=== PATIENT | female | born 1970 | race Caucasian/White ===

== ENCOUNTER 2022-04-26 11:53 | Emergency (ER) | payer OTHER, SELFPAY ==
[2022-04-26 11:59] VITALS: BP 185/106; PULSE 80; RESP 16; TEMP 36.7; O2SAT 99
--- NOTE | 2022-04-26 12:10 | ED.URI ---
HPI - URI/Sore Throat General Chief Complaint: Upper Respiratory Infection Stated Complaint: uri Time Seen by Provider: 04/26/22 12:18 Source: patient and RN notes reviewed Mode of arrival: ambulatory Limitations: no limitations History of Present Illness HPI Narrative: 52-year-old female presents with concern for 2 week history of sinus pressure on her cheeks, ear pressure, pressure behind eyes. Reports she has been taking Claritin-D Mucinex DM without relief. She reports that she works at high [place] areas that makes her symptoms worse. MD elicited complaint: nasal congestion and sinus pain Related Data Allergies Allergy/AdvReac Type Severity Reaction Status Date / Time No Known Allergies Allergy Verified 04/26/22 11:59 Review of Systems Review of Systems: CONSTITUTIONAL: Denies malaise, chills, sweats, or fever. EYES: Denies visual changes, redness, or discharge. ENT: Denies rhinorrhea reports sinus pressure, congestion, sinus pain, otalgia CARDIOVASCULAR: Denies chest pain, palpitations, or edema. RESPIRATORY: Denies cough. Denies dyspnea. GASTROINTESTINAL: Denies abdominal pain, nausea, vomiting, diarrhea SKIN: Denies rash or itching. MUSCULOSKELETAL: Denies myalgia. NEUROLOGIC: Denies headache. All systems reviewed & are unremarkable except as noted in HPI and below PMFSH Comments At time of signature, agree with nursing past medical, surgical, social and family history. There is no relevant family history pertinent to the presenting complaint Exam Narrative: GENERAL: Well-appearing, well-nourished, and in no acute distress. HEAD: Normocephalic EYES: PERRLA, conjunctivae clear ENT: Nares clear, turbinates edematous and erythematous, purulent discharge. Mucous membranes moist. TM pearly villalba with dull light reflex bilaterally; no tragal tenderness. Oropharynx not erythematous without lesions. Tonsils not enlarged and without exudate, no drooling, no hoarseness, no trismus, uvula midline. NECK: Supple. No lymphadenopathy CHEST: Clear to auscultation, breath sounds equal. No wheezing, rhonchi, rales, or stridor. No respiratory distress, speaks in full sentences. HEART: Regular rate and rhythm. No murmur heard. SKIN: Warm, dry, no rash. NEURO: Alert and oriented x3. PSYCH: Normal mood and affect Course Course Emergency Course: Patient is aware of diagnosis, understands and agrees to treatment plan. Anticipatory guidance given. Patient agrees to follow-up as directed and is aware of reasons to seek care at the emergency department. Portions of this record may have been created with voice recognition software Level of Care: Express Care Visit Vital Signs Vital signs: Reviewed. MDM - URI/Sore Throat MDM Narrative Medical decision making narrative: Differential diagnosis considered: Le[place] virus, strep pharyngitis, allergic rhinitis, upper respiratory tract infection, sinusitis, rhinosinusitis, nasopharyngitis. viral pharyngitis, otitis media, otitis externa, pneumonia, bronchitis, viral cough syndrome, viral syndrome, and influenza. Exam findings show no acute concerns or changes; patient is non-toxic appearing and is in no distress. Patient is appropriate for outpatient treatment and follow-up. Lab Data Attestation: I reviewed the patient's lab results. Critical Care Time Critical Care Time Critical Care Time: No Discharge Plan Discharge Clinical Impression: Acute bacterial sinusitis Patient Disposition: Home, Self-Care Condition: Stable Instructions: Antibiotic Form, Sinusitis (ED) Additional Instructions: Take medications as prescribed Nonprescription pain medications, such as acetaminophen (eg, Tylenol) or ibuprofen (eg, Motrin, Advil), are recommended for pain. Flushing the nose and sinuses with a saline solution several times per day has been proven to decrease pain associated with congestion and shorten the duration of symptoms. Nasal steroids (such as Flonase, 2 sprays in each no
== END 2022-04-26 12:35 | disposition home or self-care (01) ==
PROVIDERS: Emergency Provider Nurse Practitioner
DX: J01.90 Acute sinusitis, unspecified (principal)
CPT/HCPCS: 99213; G0463

== ENCOUNTER 2022-07-20 15:14 | Emergency (ER) | payer OTHER, SELFPAY ==
--- NOTE | 2022-07-20 15:21 | ED.URI ---
HPI - URI/Sore Throat General Chief Complaint: Upper Respiratory Infection Stated Complaint: ABD PAIN & SINUS PRESSURE/SORE THROAT/EARACHE Time Seen by Provider: 07/20/22 15:21 Source: patient and RN notes reviewed History of Present Illness HPI Narrative: Patient is a 52-year-old female who presents to urgent care with complaints of right rib pain, sinus pressure, cough, sore throat, bilateral earache. Patient states the upper respiratory symptoms started 2 weeks ago. 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 Patient states that it improves with ice and heat. Patient also has been taking Mucinex D, Claritin D, Jessica-D and several medications with Sudafed. Patient has never had a history of high blood pressure. Denies any headache, blurry vision or fatigue. Denies any fevers. Denies any ill exposures. Denies shortness of breath. No other acute complaints. No acute distress noted. Patient aware of the plan of care. Some parts of this dictation were generated by voice recognition software and may contain typographical and/or grammatical inaccuracies. Related Data Allergies Allergy/AdvReac Type Severity Reaction Status Date / Time No Known Allergies Allergy Verified 07/20/22 15:37 Review of Systems Review of Systems: CONSTITUTIONAL: Denies fever, chills, or sweats. EYES: Denies visual changes, redness, or discharge. ENT: Reports of congestion, sinus pressure, sore throat, bilateral otalgia CARDIOVASCULAR: Denies chest pain, palpitations, or edema. RESPIRATORY: Denies cough or dyspnea. Reports of right rib discomfort GASTROINTESTINAL: Denies abdominal pain, nausea, vomiting, or diarrhea. GENITOURINARY: Denies dysuria or hematuria. SKIN: Denies rash or itching. MUSCULOSKELETAL: Denies back pain, joint pain, or myalgia. NEUROLOGIC: Denies headache, numbness, or weakness. All other systems reviewed are negative, except as documented in HPI. PMFSH Comments At the time of my signature, I reviewed and agree with the nursing past medical, surgical, social, and family history. There is no relevant family history pertinent to the patient complaint. Exam Narrative: GENERAL: This is a well-nourished, well-developed patient, in no apparent distress. HEAD: normocephalic, atraumatic. Frontal sinus tenderness on palpation EYES: PERRL. Sclera clear/white. Vision is grossly intact. EARS: External ears normal, auditory canals clear and without drainage, TMs normal without perforation. Hearing grossly intact. NOSE: External nose normal with no obvious nasal discharge, nares without redness, no rhinorrhea. THROAT: Mucous membranes moist, posterior pharynx clear. Moderate postnasal drainage NECK: Neck supple, non-tender without lymphadenopathy CARDIOVASCULAR: Regular rate and rhythm without murmurs, gallops, or rubs. RESPIRATORY: Clear to auscultation. Breath sounds equal bilaterally. No wheezes, rales, or rhonchi. Mild right rib discomfort on deep breathing with mild lateral right tenderness to approximately rib 7/8 SKIN: warm, intact with no suspicious lesions or rash, good texture and turgor. NEURO: awake, alert, and oriented to person, place and time. There were no obvious focal neurologic abnormalities. EXTREMITIES: No clubbing, cyanosis, or edema. Course Course Level of Care: Express Care Visit Vital Signs Vital signs: Vital Signs Temperature 97.7 F 07/20/22 15:25 Pulse Rate 71 07/20/22 15:25 Respiratory Rate 16 07/20/22 15:25 Blood Pressure 209/127 H 07/20/22 15:25 Pulse Oximetry 100 07/20/22 15:25 Oxygen Delivery Room Air 07/20/22 15:25 Temperature 97.7 F 07/20/22 15:25 Pulse Rate 71 07/20/22 15:25 Respiratory Rate 16 07/20/22 15:25 Blood Pressure 209/127 H 07/20/22 15:25 Pulse Oximetry 100 07/20/22 15:25 Oxygen Delivery Room Air
[2022-07-20 15:25] VITALS: BP 209/127; PULSE 71; RESP 16; TEMP 36.5; O2SAT 100
== END 2022-07-20 16:11 | disposition home or self-care (01) ==
PROVIDERS: Emergency Provider Nurse Practitioner Family
DX: J32.9 Chronic sinusitis, unspecified (principal); Z98.84 Bariatric surgery status
CPT/HCPCS: 99213; G0463

== ENCOUNTER → 2022-09-15 11:31 | Outpatient (CLI) | payer OTHER, SELFPAY ==
--- NOTE | ~2022-09-15 | XR_ITS ---
EXAMINATION: XR chest 2V 09/15/2022 11:45 INDICATION: Hypertension. PROCEDURE: 2 view chest COMPARISON: No prior studies FINDINGS: The lungs are clear. The cardiomediastinal silhouette is within normal limits. There are no pleural effusions. There is no pneumothorax suspected. IMPRESSION: 1: NO ACUTE CARDIOPULMONARY DISEASE. Reviewed, dictated and finalized at location B.
== END ==
PROVIDERS: PCP Nurse Practitioner Family; Visit Provider Nurse Practitioner Family
DX: I10 Essential (primary) hypertension (principal)
CPT/HCPCS: 71046

== ENCOUNTER 2022-09-15 11:55 | Outpatient (CLI) | payer OTHER, SELFPAY ==
--- NOTE | 2022-09-15 12:04 | ECG_ITS ---
Measurements Intervals [place] Rate: 81 P: 14 SD: 122 QRS: -9 QRSD: 98 T: 23 QT: 377 QTc: 439 Interpretive Statements SINUS RHYTHM LOW-VOLTAGE QRS IN PRECORDIAL LEADS BORDERLINE ECG NO PREVIOUS ECG AVAILABLE FOR COMPARISON Electronically Signed On 09-15-2022 16:52:16 CDT by Danny Ortiz M.D.
== END 2022-09-15 11:56 | disposition home or self-care (01) ==
LOC: ANHCARD 11:58
PROVIDERS: PCP Nurse Practitioner Family; Visit Provider Nurse Practitioner Family
DX: I10 Essential (primary) hypertension (principal)
CPT/HCPCS: 93005

== ENCOUNTER 2022-10-07 23:34 | Inpatient (IN) | payer OTHER, SELFPAY ==
--- NOTE | ~2022-10-07 | US_ITS ---
EXAMINATION: US abdomen limited DATE: 10/08/2022 09:17 INDICATION: Abnormal liver function tests. TECHNIQUE: Multiple grayscale and Doppler ultrasound images of the abdomen were obtained. COMPARISON: CT abdomen and pelvis 10/08/2022 FINDINGS: The head of the pancreas is hypoechoic, consistent with acute pancreatitis. There is diffus e hepatic steatosis. There is normal flow in main portal vein. The gallbladder is absent. The common duct is dilated to 14 mm. IMPRESSION: 1. Acute interstitial pancreatitis. 2. Common duct dilatation to 14 mm. 3. Diffuse hepatic steatosis. Reviewed, dictated and finalized at location A.
--- NOTE | ~2022-10-07 | CT_ITS ---
EXAMINATION: CT abdomen pelvis w con DATE: 10/08/2022 01:50 INDICATION: Upper abdominal pain. TECHNIQUE: Computed tomography (CT) of the abdomen and pelvis was performed with 100 mL Omnipaque 350 intravenous contrast. Automated exposure control and iterative reconstruction technique were employe d. The dose-length product was 461.00 mGy-cm. COMPARISON: None. FINDINGS: The visualized portions of the lung bases are clear without pneumonia or pleural effusion. The heart size is normal. No pericardial effusion. The liver is normal. There are changes of cholecys tectomy. The common duct is mildly dilated to 12 mm. The spleen is normal. There is fat stranding in the abdomen centered at the head of the pancreas, consistent with acute interstitial pancreatitis. Th e adrenal glands and kidneys are normal. There is an intrauterine device in expected position. There is liquid stool in the colon suggesting diarrhea. There are no dilated loops of bowel. The appendix i s normal. There are no pathologically enlarged lymph nodes. There is no free intraperitoneal fluid. T here is moderate thoracic spondylosis and mild lumbar spondylosis. There is mild chronic anterior wed ging of T11 and T12 vertebral bodies. IMPRESSION: 1. Acute interstitial pancreatitis. 2. Mildly dilated common duct. Reviewed, dictated and finalized at location A.
[2022-10-07 23:39] VITALS: BP 173/95; PULSE 71; RESP 18; TEMP 36.4; O2SAT 99
[2022-10-08] VITALS (13 sets, daily range): BP systolic 133–166; BP diastolic 66–118; PULSE 56–76; RESP 16–18; TEMP 36.4–36.7; O2SAT 94–98; BMI 29.3
[2022-10-08] MEDS: SODIUM CHLORIDE 0.9% IV 1,000 ML 999 ML IV CONT ×2 (00:51→02:21)
[2022-10-08] MEDS: MORPHINE SULFATE (*CRX) 4 MG/ML INJ IV PUSH ×4 (00:52→06:28)
[2022-10-08] MEDS: ONDANSETRON INJ 4 MG/2 ML VIAL IV PUSH ×4 (00:52→23:41)
[2022-10-08 01:02] LABS: Basophils Percent Auto 0.4 % (0.2-1.2); Eosinophils Percent Auto 0.6 % (0-4.4); Hematocrit 35.5 % (37.0-47.0); Hemoglobin 12.5 g/dL (12.0-15.0); Immature Granulocyte Absolute 0.01 K/mm3 (0.00-0.031); Immature Granulocyte Percent A 0.2 % (0-0.5); Lymphocytes Absolute Auto 1.19 K/mm3 (0.9-3.2); Lymphocytes Percent Auto 22.5 % (18.3-44.2); Mean Corpuscular HGB Conc 35.2 g/dl (32-36); Mean Corpuscular Hemoglobin 33.2 pg (26-34); Mean Corpuscular Volume 94.4 fl (80-100); Mean Platelet Volume 9.3 fl (7.4-10.4); Monocytes Absolute Auto 0.5 K/mm3 (0.1-0.6); Monocytes Percent Auto 9.1 % (2.6-8.5); Neutrophils Absolute Auto 3.6 K/mm3 (1.3-6.7); Neutrophils Percent Auto 67.2 % (45.5-73.1); Platelet Count Result 155 k/mm3 (150-375); Red Blood Count 3.76 M/mm3 (4.2-5.4); Red Cell Distribution Width 11.9 % (11.5-14.5); White Blood Count 5.3 K/mm3 (4.5-10.0)
[2022-10-08 01:03] LABS: Appearance Urine Clear (Clear); Bilirubin Urine 1+ (Negative); Blood Urine Negative (Negative); Color Urine Yellow (Yellow); Glucose Urine UA Negative (Negative); Ketones Urine 2+ mg/dL (Negative); Leukocyte Esterase Ur Negative LEU/UL (Negative); Nitrate Urine Negative (Negative); Protein Urine 2+ mg/dL (Negative); Specific Grav Ur 1.025 (1.001-1.035); Urobilinogen Urine 0.2 mg/dL (<2.0)
[2022-10-08 01:04] LABS: Add Urine Microscopic? YES
[2022-10-08 01:05] LABS: Squamous Epithelial Cell Urine Occasional /hpf (Few); WBC Urine 0-3 /hpf
[2022-10-08 01:20] LABS: Lactic Acid Reflex 1.1 mmol/L (0.7-2.0)
[2022-10-08 01:26] LABS: Alanine Aminotransferase 80 U/L (6-35); Alkaline Phosphatase 129 U/L (38-126); Anion Gap 6 mmol/L (8-16); Aspartate Amino Transferase 154 U/L (14-36); Blood Urea Nitrogen 11 mg/dL (7-17); Calcium 8.6 mg/dL (8.4-10.2); Carbon Dioxide 30 mmol/L (22-30); Chloride 83 mmol/L (98-107); Estimated Glomerular Filt Rate > 60; Glucose 103 mg/dL (65-110); Potassium 3.7 mmol/L (3.4-5.0); Sodium 119 mmol/L (137-145)
[2022-10-08 01:38] LABS: Lipase 5516 U/L (23-300)
--- NOTE | 2022-10-08 02:16 | ED.GENADULT ---
HPI - General Adult General Chief complaint: Abdominal Pain Stated complaint: upper abd pain, nausea Time Seen by Provider: 10/08/22 00:21 History of Present Illness HPI narrative: Is a 52-year-old female who presents emergency department with chief complaint of abdominal pain. Patient reports that she started having pain in the epigastric and right upper quadrant region reports that it is extremely sharp unable to get comfortable in any position. The patient reports he has prior history of a cholecystectomy and also history of a gastric bypass that was done in [place]. Patient reports that she has had nausea with this denies fever. Related Data Allergies Allergy/AdvReac Type Severity Reaction Status Date / Time No Known Allergies Allergy Verified 07/20/22 15:37 Review of Systems Review of Systems: A 10 system review of systems was completed on the patient and is negative except for what is stated in the HPI. Nursing and ancillary documentation was reviewed. Exam Narrative: GENERAL: Well-appearing, well-nourished, and in no acute distress. HEAD: Normocephalic, atraumatic. EYES: PERRLA and EOMI. ENT: Nares clear, no rhinorrhea or epistaxis. Mucous membranes moist. NECK: Supple. CHEST: Clear to auscultation. No respiratory distress. HEART: Regular rate and rhythm. No murmur heard. Normal peripheral pulses. ABDOMEN: Soft, tender to palpation in the epigastric, nondistended, normal active bowel sounds. EXTREMITIES: Normal range of motion. No edema. SKIN: Warm, dry, no rash. NEURO: No focal deficits. Alert and oriented x3. PSYCH: Normal mood and affect. Course Vital Signs Vital signs: Vital Signs Temperature 36.4 C L 10/07/22 23:39 Pulse Rate 71 10/07/22 23:39 Respiratory Rate 18 10/07/22 23:39 Blood Pressure 173/95 H 10/07/22 23:39 Pulse Oximetry 99 10/07/22 23:39 Oxygen Delivery Room Air 10/07/22 23:39 Temperature 36.4 C L 10/07/22 23:39 Pulse Rate 74 10/08/22 03:05 Respiratory Rate 17 10/08/22 03:05 Blood Pressure 137/73 10/08/22 04:31 Pulse Oximetry 94 10/08/22 03:05 Oxygen Delivery Room Air 10/07/22 23:39 Medical Decision Making MDM Narrative Medical decision making narrative: Differential diagnosis includes pancreatitis, gastritis, colitis, bowel obstruction, electrolyte abnormality, ileus Laboratory studies were obtained which showed a sodium of 119. Patient's liver enzymes were slightly elevated with an ALT of 80 and AST of 154. Bilirubin was 1.0. Patient had a significantly elevated lipase of 5560 urinalysis showed no evidence of UTI. CT scan was also consistent with acute pancreatitis Patient has been hydrated in the emergency department pain control has been provided. The case was discussed with the hospitalist and patient will be admitted to the hospital service. Hospitalist requested both a general surgery and a GI consult for the morning Vital Signs Vital Signs: Vital Signs Temperature 36.4 C L 10/07/22 23:39 Pulse Rate 71 10/07/22 23:39 Respiratory Rate 18 10/07/22 23:39 Blood Pressure 173/95 H 10/07/22 23:39 Pulse Oximetry 99 10/07/22 23:39 Oxygen Delivery Room Air 10/07/22 23:39 Temperature 36.4 C L 10/07/22 23:39 Pulse Rate 74 10/08/22 03:05 Respiratory Rate 17 10/08/22 03:05 Blood Pressure 137/73 10/08/22 04:31 Pulse Oximetry 94 10/08/22 03:05 Oxygen Delivery Room Air 10/07/22 23:39 Lab Data 10/08/22 00:50 10/08/22 02:58 Labs: Lab Results 10/08/22 10/08/22 10/08/22 Range/Units 00:49 00:50 02:58 WBC 5.3 (4.5-10.0) K/mm3 RBC 3.76 L (4.2-5.4) M/mm3 Hgb 12.5 (12.0-15.0) g/dL Hct 35.5 L (37.0-47.0) % MCV 94.4 (80-100) fl MCH 33.2 (26-34) pg MCHC 35.2 (32-36) g/dl RDW 11.9 (11.5-14.5) % Plt Count 155 (150-375) k/mm3 MPV 9.3 (7.4-10.4) fl Immature Gran % (Auto) 0.2 (0-0.5) % Neut % (A
[2022-10-08 03:22] LABS: Anion Gap 4 mmol/L (8-16); Blood Urea Nitrogen 9 mg/dL (7-17); Carbon Dioxide 27 mmol/L (22-30); Chloride 92 mmol/L (98-107); Estimated Glomerular Filt Rate > 60; Glucose 102 mg/dL (65-110); Potassium 3.4 mmol/L (3.4-5.0); Sodium 123 mmol/L (137-145)
--- NOTE | 2022-10-08 04:53 | PM.IMHP ---
H&P: HPI History of Present Illness Date/Time: 10/08/22 04:53 Chief Complaint: Epigastric abdominal pain Narrative: This is a 52-year-old female with past medical history significant for gastric bypass surgery [facility] this was 17 years ago, obesity, patient presents today to the emergency room after she workup in the morning with epigastric abdominal pain she rated at 10/10 intensity, patient was able to have small meals during the day she rates the pain a 10/10 in intensity no alleviating factors or aggravating factors only relieved by pain medication patient denies any fevers, rigors, chills, nausea, vomiting, diarrhea has been in her usual state of health up until this point. Preliminary workup was significant for a lipase of 5500, AST/ALT/alk phos 154/84/129 respectively, sodium [address] of abdomen and pelvis is in progress finalized report pending. Patient is been admitted for further evaluation management and treatment. Review of Systems Review of Systems: Epigastric abdominal pain Constitutional: Constitutional: Denies chills, Denies fatigue, Denies fever(s), Denies lethargy, Denies malaise, Denies night sweats, Denies poor appetite and Denies weakness Eyes: Eyes: Denies change in vision ENT: Denies dysphagia and Denies odynophagia Cardiovascular: Cardiovascular: Denies chest pain, Denies leg edema, Denies radiating jaw, neck or arm pain and Denies palpitations Respiratory: Respiratory: Denies cough, Denies pain on inspiration and Denies dyspnea Gastrointestinal: Gastrointestinal: Reports abdominal pain (Epigastric), Denies dyspepsia, Denies heartburn, Denies diarrhea, Denies nausea and Denies vomiting Genitourinary: Genitourinary: Denies dysuria Musculoskeletal: Musculoskeletal: Denies back pain, Denies joint swelling and Denies muscle weakness Integumentary/Breasts: Skin/Breast: Denies rash Neurologic: Denies focal weakness and Denies Sensory deficit (Neuro) Psychiatric: Psychiatric: Reports no additional psychiatric complaints and Reports as per HPI Endocrine: Endocrine: Denies cold intolerance, Denies flushing, Denies heat intolerance, Denies polyphagia, Denies polydipsia and Denies palpitations Hematologic/Lymphatic: Hematologic/Lymphatic: Reports no additional hematologic/lymphatic complaints and Reports as per HPI Allergic/Immunologic: Allergic/Immunologic: Reports no additional allergic/immunologic complaints and Reports as per HPI Meds Home Medications and Allergies Home Medications Medication Instructions Recorded Confirmed Type hydrochlorothiazide 12.5 mg capsule 12.5 mg PO DAILY 10/08/22 10/08/22 History losartan 50 mg tablet 50 mg PO DAILY 10/08/22 10/08/22 History Allergies Allergy/AdvReac Type Severity Reaction Status Date / Time No Known Allergies Allergy Verified 07/20/22 15:37 Vital Signs Vital Signs - 24 hr 10/07/22 23:39 10/08/22 00:58 10/08/22 01:01 Temperature 97.5 F L Pulse Rate 71 Respiratory Rate 18 Blood Pressure 173/95 H 157/118 H 166/79 H Pulse Oximetry 99 Oxygen Delivery Room Air 10/08/22 01:31 10/08/22 01:47 10/08/22 02:01 Temperature Pulse Rate Respiratory Rate Blood Pressure 153/82 H 144/80 H 146/79 H Pulse Oximetry Oxygen Delivery 10/08/22 02:31 10/08/22 03:05 10/08/22 04:01 Temperature Pulse Rate 74 Respiratory Rate 17 Blood Pressure 155/66 H 133/83 137/75 Pulse Oximetry 94 Oxygen Delivery 10/08/22 04:31 Temperature Pulse Rate Respiratory Rate Blood Pressure 137/73 Pulse Oximetry Oxygen Delivery Exam Narrative: Patient is laying in a stretcher Const: General: cooperative, comfortable, no acute distress, well developed, alert, awake, average body habitus and other (Well-appearing, apprehensive) Nutritional Appearance: average body habitus Orientation/consciousness: patient oriented x3 HENMT: Head: normal to inspection, normocephalic and atraumatic Ears:
[2022-10-08] MEDS: PANTOPRAZOLE SODIUM IV 40 MG VIAL IV PUSH ×2 (04:55→08:22)
[2022-10-08] MEDS: SODIUM CHLORIDE 0.9% IV 1,000 ML 125 ML IV CONT (05:04)
[2022-10-08] MEDS: HYDROmorphone HCL INJ (*CRX) 1 MG/ML SYR 0.5 MG IV PUSH ×8 (08:16→23:41)
[2022-10-08] MEDS: LOSARTAN POTASSIUM 50 MG TABLET PO (08:21)
[2022-10-08] MEDS: ENOXAPARIN 40 MG/0.4 ML SYRINGE SUB-Q (08:21)
[2022-10-08 09:22] LABS: Sodium 129 mmol/L (137-145)
[2022-10-08 10:11] LABS: Creatinine Urine 25.9 mg/dL; Total Protein Urine Random 25 mg/dL; Ur Ttl Prot Creatinine Ratio 0.97 mg/mg (0-0.20); Urea Random Urine 196 MG/DL
[2022-10-08] MEDS: DEXTROSE 5% IN WATER 500 ML 250 ML IV CONT ×2 (11:29→15:39)
--- NOTE | 2022-10-08 11:38 | PM.IMPN ---
Progress Note: A&P Assessment and Plan (1) Acute pancreatitis: Qualifiers: Acute pancreatitis complication: no infection or necrosis Pancreatitis type: unspecified pancreatitis type Qualified Code(s): K85.90 - Acute pancreatitis without necrosis or infection, unspecified Code(s): K85.90 - Acute pancreatitis without necrosis or infection, unspecified Status: Acute Assessment and Plan: Admit to regular medical floor NPO IV fluids Supportive care GI consult General surgery consult (2) Abdominal pain: Code(s): R10.9 - Unspecified abdominal pain Status: Acute Assessment and Plan: Likely secondary to acute pancreatitis Supportive care (3) Hyponatremia: Code(s): E87.1 - Hypo-osmolality and hyponatremia Status: Acute Assessment and Plan: Likely secondary to diuretic use Hydrochlorothiazide on hold Receiving IV fluids Continue to monitor (4) Abnormal LFTs: Code(s): R79.89 - Other specified abnormal findings of blood chemistry Status: Acute Assessment and Plan: Her right upper quadrant ultrasound in a.m. Continue to monitor Subjective Date/time seen: 10/08/22 11:38 Interval history: Still having abdominal pain. Exam Narrative: Patient is laying in a stretcher Const: General: cooperative, comfortable, no acute distress, well developed, alert, awake, average body habitus and other (Well-appearing, apprehensive) Nutritional Appearance: average body habitus Orientation/consciousness: patient oriented x3 HENMT: Head: normal to inspection, normocephalic and atraumatic Ears: hearing grossly normal bilaterally Face/Nose/Sinus: normal facial exam Face and sinus: normal facial exam Eyes: General: appearance normal, both eyes and all related structures Pupils: Equal, round and reactive pupils present EOM: EOMs intact bilaterally Neck: Neck: full ROM, no lymphadenopathy and no JVD Thyroid: thyroid normal Lymphatic: no lymphadenopathy noted Resp: Effort & Inspection: normal respiratory effort and able to speak in complete sentences Auscultation: clear to auscultation bilaterally Cardio: Jugular venous distension: no JVD Rate: regular rate Rhythm: regular rhythm Heart sounds: S1 normal heart sound present and S2 normal heart sound present GI: Inspection: normal to inspection : General: Yes deferred Skin: Rashes: no rashes Wounds: no wounds Neuro: General: patient oriented x3 and CN's II-XI intact bilaterally Cranial nerves: Yes CN's II-XII intact bilaterally and Yes Equal, round and reactive pupils present Cognition (Neuro): normal cognition Speech: normal speech Gait exam (Neuro): Normal gait present Motor exam (neuro): 5/5 motor strength present throughout Sensory Exam: No Sensory deficit (Neuro) Extrem: General: normal to inspection, full ROM, no joint enlargement and no pedal edema Objective Data Vital Signs Vital Signs: Vital Signs - 24 hr 10/07/22 23:39 10/08/22 00:58 10/08/22 01:01 Temperature 97.5 F L Pulse Rate 71 Respiratory Rate 18 Blood Pressure 173/95 H 157/118 H 166/79 H Pulse Oximetry 99 Oxygen Delivery Room Air 10/08/22 01:31 10/08/22 01:47 10/08/22 02:01 Temperature Pulse Rate Respiratory Rate Blood Pressure 153/82 H 144/80 H 146/79 H Pulse Oximetry Oxygen Delivery 10/08/22 02:31 10/08/22 03:05 10/08/22 04:01 Temperature Pulse Rate 74 Respiratory Rate 17 Blood Pressure 155/66 H 133/83 137/75 Pulse Oximetry 94 Oxygen Delivery 10/08/22 04:31 10/08/22 05:02 10/08/22 06:07 Temperature 97.8 F Pulse Rate 76 65 Respiratory Rate 18 18 Blood Pressure 137/73 143/89 H 150/74 H Pulse Oximetry 94 97 Oxygen Delivery 10/08/22 08:05 Temperature Pulse Rate Respiratory Rate Blood Pressure Pulse Oximetry Oxygen Delivery Room Air Intake/Output Intake/Output: Intake & Output 10/05/22 10/06/22 10/07/22 10/08/22
[2022-10-08] MEDS: DESMOPRESSIN ACETATE 4 MCG/ML AMP 1 MCG SUB-Q (11:59)
--- NOTE | 2022-10-08 13:25 | PM.CNNEP ---
Assessment and Plan Assessment and plan (1) Hyponatremia: Code(s): E87.1 - Hypo-osmolality and hyponatremia Status: Acute Assessment and Plan: presumably due to volume depletion/dehydration given rapid correction with normal saline IVFs due to concerns of rapid/overcorrection in sodium (119 --> 129 in less than 24 hours): D5W IVFs initiated 1mcg DDAVP SQ x 1 goal of therapy is 6 - 8 meq/L in 24hrs hence trying to keep sodium level no higher than 127 meq/L until 0100 tomorrow check TSH, cortisol, SPEP, UPEP, and urine electrolytes follow up on serum and urine osmolality follow repeat sodium levels (2) Acute pancreatitis: Qualifiers: Acute pancreatitis complication: no infection or necrosis Pancreatitis type: unspecified pancreatitis type Qualified Code(s): K85.90 - Acute pancreatitis without necrosis or infection, unspecified Code(s): K85.90 - Acute pancreatitis without necrosis or infection, unspecified Status: Acute Assessment and Plan: as noted by serum lipase level and imaging GI and Surgery consulted NPO IVFs (while trying to keep sodium stable) pain control (3) Abdominal pain: Code(s): R10.9 - Unspecified abdominal pain Status: Acute Assessment and Plan: secondary to #2 continue supportive therapy (4) Abnormal LFTs: Code(s): R79.89 - Other specified abnormal findings of blood chemistry Status: Acute Assessment and Plan: related to pancreatitis (?) follow-up on RUQ ultrasound I will continue to follow the patient with you while she remains hospitalized and make further recommendations during her hospital course. Thank you for allowing me to participate in the care of this patient. History of Present Illness Reason for Consult Consult date: 10/08/22 Reason for consult: hyponatremia Chief Complaint Chief complaint: Acute Pancreatitis History of Present Illness Narrative: The patient is a 52-year-old female with a past medical history as outlined below who presented to [facility] Emergency room for further evaluation of abdominal pain. The patient reports abdominal pain localized to the epigastric area rated 10 at 10 in severity. She is not entirely sure when exactly the pain started but noted it to be significantly worse/prominent on the day of presentation to the ER. No reported alleviating or aggravating factors that she is aware of. He denied any symptoms of fever, chills, rigors, nausea, vomiting, diarrhea. In spite of the pain, she was able to have some small meals throughout the day until the severity of the pain came to the point where she came to the emergency room for further assessment. Workup and evaluation emergency room demonstrated the patient be hemodynamically stable and in mild distress secondary to abdominal pain. Routine blood test demonstrated normal renal function but with significant hyponatremia with a sodium level of 119. Furthermore, her liver function tests from mildly elevated and her lipase was significantly elevated at 5500. Subsequently, a CT scan of the abdomen pelvis was done which was consistent with acute pancreatitis. Given the constellation of symptoms that led to her presentation to the hospital as well as her laboratory and imaging findings, the patient was admitted to the hospital for further evaluation and therapy. Since her admission, she was started on aggressive IV fluid resuscitation and this caused her sodium level ago from 119-123 approximately 2 hours later to her most recent blood work this morning of 129. This of course is an over-correction of around 10 mEq per L in less than 24 hours. Renal consultation was requested due to her acute hyponatremia. From my discussion with the patient, she has never had any issues or problems with hyponatremia in the past and has never been told by any physician or medical professional that she has a chr
[2022-10-08 15:02] LABS: Sodium 128 mmol/L (137-145)
--- NOTE | 2022-10-08 15:34 | PM.CNGS ---
Assessment and Plan Assessment and plan (1) Acute pancreatitis: Qualifiers: Acute pancreatitis complication: no infection or necrosis Pancreatitis type: unspecified pancreatitis type Qualified Code(s): K85.90 - Acute pancreatitis without necrosis or infection, unspecified Code(s): K85.90 - Acute pancreatitis without necrosis or infection, unspecified Status: Acute Assessment and Plan: Most likely due to alcohol. No evidence of pseudocyst or necrosis. Unlikely to have bile duct stone as gallbladder removed nearly 20 years ago. Defer management to GI and Hospitalist service. No indication for surgery. Will sign off. History of Present Illness Consult details Consult date: 10/08/22 Reason for consult: abdominal pain Requesting physician: Elpidio Pierce MD Narrative: Patient is 52 yo woman whose about 2 weeks ago. She has been understandably upset and grieving. She has also been drinking a lot of vodka which is unusual for her. She has remote (17 yrs ago) hx of jocelin-en-Y gastric bypass in [place]. She had lap dayne a year or two before that. She developed severe epigastric abdominal pain on awakening yesterday. This persisted and she came to the ER yesterday evening. Evaluation showed an elevated serum lipase of 5516. CT scan was done and showed acute pancreatitis. CBD was dilated at 12 mm. She is seen now in consultation for acute epigastric abdominal pain. Review of Systems Review of Systems: All systems reviewed & are unremarkable except as noted in HPI and below (HPI and those items noted below) Constitutional: Constitutional: Denies chills and Denies fever(s) Cardiovascular: Cardiovascular: Denies chest pain, Denies diaphoresis, Denies dyspnea and Denies paroxysmal nocturnal dyspnea Respiratory: Respiratory: Denies chest congestion, Denies cough and Denies dyspnea Integumentary/Breasts: Skin/Breast: Denies lesions and Denies rash PMFSH Social History Social History Smoking status: Never smoker Alcohol intake: current Drinks per week: 12 Substance use: never Substance use type: does not use Lack of Transportation: No Lack of Food: Never True Current Housing: I Have Housing Concerned About Future Housing: No Difficulty Paying Gas/Electric Bills: No Difficulty Paying for Meds: No Currently Unemployed: No Education: High School Diploma/GED Difficulty w/ Childcare or Family Care: No Spiritual care concerns: No Meds Home Medications and Allergies Home Medications Medication Instructions Recorded Confirmed Type hydrochlorothiazide 12.5 mg capsule 12.5 mg PO DAILY 10/08/22 10/08/22 History losartan 50 mg tablet 50 mg PO DAILY 10/08/22 10/08/22 History Allergies Allergy/AdvReac Type Severity Reaction Status Date / Time No Known Allergies Allergy Verified 07/20/22 15:37 Vital Signs Vital Signs - 24 hr 10/07/22 23:39 10/08/22 00:58 10/08/22 01:01 Temperature 36.4 C L Pulse Rate 71 Respiratory Rate 18 Blood Pressure 173/95 H 157/118 H 166/79 H Pulse Oximetry 99 Oxygen Delivery Room Air 10/08/22 01:31 10/08/22 01:47 10/08/22 02:01 Temperature Pulse Rate Respiratory Rate Blood Pressure 153/82 H 144/80 H 146/79 H Pulse Oximetry Oxygen Delivery 10/08/22 02:31 10/08/22 03:05 10/08/22 04:01 Temperature Pulse Rate 74 Respiratory Rate 17 Blood Pressure 155/66 H 133/83 137/75 Pulse Oximetry 94 Oxygen Delivery 10/08/22 04:31 10/08/22 05:02 10/08/22 06:07 Temperature 36.6 C Pulse Rate 76 65 Respiratory Rate 18 18 Blood Pressure 137/73 143/89 H 150/74 H Pulse Oximetry 94 97 Oxygen Delivery 10/08/22 08:05 10/08/22 14:00 Temperature 36.4 C Pulse Rate 60 Respiratory Rate 18 Blood Pressure 145/99 H Pulse Oximetry 98 Oxygen Delivery Room Air Exam Const: General: comfortable, no acute distres
[2022-10-08 19:36] LABS: Sodium 125 mmol/L (137-145)
--- NOTE | 2022-10-08 19:57 | WPDGICN ---
Assessment and Plan Assessment and plan (1) Acute pancreatitis: Qualifiers: Acute pancreatitis complication: no infection or necrosis Pancreatitis type: unspecified pancreatitis type Qualified Code(s): K85.90 - Acute pancreatitis without necrosis or infection, unspecified Code(s): K85.90 - Acute pancreatitis without necrosis or infection, unspecified Status: Acute Assessment and Plan: from recent heavy drinking npo, iv fluids, pain control no surgical indication and reviewed CT scan (2) Alcohol abuse: Code(s): F10.10 - Alcohol abuse, uncomplicated Status: Acute Assessment and Plan: she understood that probably was trigger stop drinking (3) Abnormal LFTs: Code(s): R79.89 - Other specified abnormal findings of blood chemistry Status: Acute Assessment and Plan: will monitor (4) Hyponatremia: Code(s): E87.1 - Hypo-osmolality and hyponatremia Status: Acute Assessment and Plan: treated slow correction, by nephrology (5) Abdominal pain: Code(s): R10.9 - Unspecified abdominal pain Status: Acute GI Consult Note Consult date/time: 10/08/22 19:57 Reason for consult: pancreatitis HPI: Rima Hanson is a 52 year old female with history of HTN, about 17 yrs ago hx of jocelin-en-Y gastric bypass in [place] and also had lap dayne. She is social drinker but lost her and for last 2 weeks has been drinking heavily vodka which is unusual for her. She developed severe epigastric abdominal pain with radiation to her back and [place]. Evaluation showed an elevated serum lipase of 5516, AST/ALT/alk phos 154/84/129 respectively, sodium [address] scan was done and showed acute pancreatitis, still with pain. Never had pancreatitis. Review of Systems Constitutional: Constitutional: Denies chills Eyes: Eyes: Denies blurry vision ENT: Reports Normal hearing present Cardiovascular: Cardiovascular: Denies chest pain Respiratory: Respiratory: Denies cough Gastrointestinal: Gastrointestinal: Reports abdominal pain and Reports nausea Genitourinary: Genitourinary: Denies dysuria Musculoskeletal: Musculoskeletal: Denies arthralgias Integumentary/Breasts: Skin/Breast: Denies rash Neurologic: Denies Abnormal speech present Psychiatric: Psychiatric: Denies confusion [facility] Past Medical History Medical History Alcohol abuse Social History Social History Smoking status: Never smoker Alcohol intake: current Drinks per week: 12 Substance use: never Substance use type: does not use Lack of Transportation: No Lack of Food: Never True Current Housing: I Have Housing Concerned About Future Housing: No Difficulty Paying Gas/Electric Bills: No Difficulty Paying for Meds: No Currently Unemployed: No Education: High School Diploma/GED Difficulty w/ Childcare or Family Care: No Spiritual care concerns: No Meds Home Medications and Allergies Home Medications Medication Instructions Recorded Confirmed Type hydrochlorothiazide 12.5 mg capsule 12.5 mg PO DAILY 10/08/22 10/08/22 History losartan 50 mg tablet 50 mg PO DAILY 10/08/22 10/08/22 History Allergies Allergy/AdvReac Type Severity Reaction Status Date / Time No Known Allergies Allergy Verified 07/20/22 15:37 Vital Signs Vital Signs - 24 hr 10/07/22 23:39 10/08/22 00:58 10/08/22 01:01 Temperature 97.5 F L Pulse Rate 71 Respiratory Rate 18 Blood Pressure 173/95 H 157/118 H 166/79 H Pulse Oximetry 99 Oxygen Delivery Room Air 10/08/22 01:31 10/08/22 01:47 10/08/22 02:01 Temperature Pulse Rate Respiratory Rate Blood Pressure 153/82 H 144/80 H 146/79 H Pulse Oximetry Oxygen Delivery 10/08/22 02:31 10/08/22 03:05 10/08/22 04:01 Temperature Pulse Rate 74 Respiratory Rate 17 Blood Pressure 155/66 H 133/83 137/75
[2022-10-08 23:23] LABS: Sodium 125 mmol/L (137-145)
[2022-10-08] MEDS: DEXTROSE 5%/0.45% SOD CHL 1,000 ML 75 ML IV CONT (23:53)
[2022-10-09] MEDS: HYDROmorphone HCL INJ (*CRX) 1 MG/ML SYR 0.5 MG IV PUSH ×8 (02:25→23:44)
[2022-10-09] MEDS: ONDANSETRON INJ 4 MG/2 ML VIAL IV PUSH ×4 (05:35→21:34)
[2022-10-09 06:00] VITALS: BP 167/83; PULSE 56; RESP 16; TEMP 36.2; O2SAT 97
[2022-10-09 06:39] LABS: Hematocrit 36.1 % (37.0-47.0); Hemoglobin 12.2 g/dL (12.0-15.0); Immature Platelet Fraction Pct 5.6 % (0.9-11.2); Mean Corpuscular HGB Conc 33.8 g/dl (32-36); Mean Corpuscular Hemoglobin 33.5 pg (26-34); Mean Corpuscular Volume 99.2 fl (80-100); Platelet Count Result 129 k/mm3 (150-375); Red Blood Count 3.64 M/mm3 (4.2-5.4); Red Cell Distribution Width 11.9 % (11.5-14.5); White Blood Count 4.3 K/mm3 (4.5-10.0)
[2022-10-09 06:40] LABS: Basophils Percent Auto 0.2 % (0.2-1.2); Eosinophils Absolute Auto 0.1 K/mm3 (0-0.3); Eosinophils Percent Auto 2.8 % (0-4.4); Immature Granulocyte Absolute 0.01 K/mm3 (0.00-0.031); Immature Granulocyte Percent A 0.2 % (0-0.5); Lymphocytes Absolute Auto 0.65 K/mm3 (0.9-3.2); Mean Platelet Volume 9.9 fl (7.4-10.4); Monocytes Absolute Auto 0.2 K/mm3 (0.1-0.6); Monocytes Percent Auto 5.3 % (2.6-8.5); Neutrophils Absolute Auto 3.3 K/mm3 (1.3-6.7); Neutrophils Percent Auto 76.5 % (45.5-73.1)
[2022-10-09 06:55] LABS: Alanine Aminotransferase 209 U/L (6-35); Albumin Level 3.7 g/dL (3.5-5.1); Alkaline Phosphatase 164 U/L (38-126); Anion Gap 4 mmol/L (8-16); Aspartate Amino Transferase 398 U/L (14-36); Bilirubin,Total 1.2 mg/dL (0.2-1.3); Blood Urea Nitrogen 3 mg/dL (7-17); Calcium 8.3 mg/dL (8.4-10.2); Carbon Dioxide 30 mmol/L (22-30); Chloride 93 mmol/L (98-107); Estimated Glomerular Filt Rate > 60; Glucose 104 mg/dL (65-110); Lipase 1525 U/L (23-300); Potassium 2.9 mmol/L (3.4-5.0); Sodium 127 mmol/L (137-145)
[2022-10-09] MEDS: POTASSIUM CHLORIDE 20 MEQ TABLET 40 MEQ PO (08:55)
[2022-10-09] MEDS: POTASSIUM CHLORIDE INJ 40 MEQ in SODIUM CHLORIDE 0.9% IV 500 ML 130 MEQ IVPB (08:55)
[2022-10-09] MEDS: LOSARTAN POTASSIUM 50 MG TABLET PO (08:55)
[2022-10-09] MEDS: ENOXAPARIN 40 MG/0.4 ML SYRINGE SUB-Q (08:56)
[2022-10-09] MEDS: PANTOPRAZOLE SODIUM IV 40 MG VIAL IV PUSH (08:56)
--- NOTE | 2022-10-09 10:17 | PM.IMPN ---
Progress Note: A&P Assessment and Plan (1) Acute pancreatitis: Qualifiers: Acute pancreatitis complication: no infection or necrosis Pancreatitis type: unspecified pancreatitis type Qualified Code(s): K85.90 - Acute pancreatitis without necrosis or infection, unspecified Code(s): K85.90 - Acute pancreatitis without necrosis or infection, unspecified Status: Acute Assessment and Plan: Admit to regular medical floor NPO IV fluids Supportive care GI consult General surgery consult (2) Abdominal pain: Code(s): R10.9 - Unspecified abdominal pain Status: Acute Assessment and Plan: Likely secondary to acute pancreatitis Supportive care (3) Hyponatremia: Code(s): E87.1 - Hypo-osmolality and hyponatremia Status: Acute Assessment and Plan: Likely secondary to diuretic use Hydrochlorothiazide on hold Receiving IV fluids Continue to monitor (4) Abnormal LFTs: Code(s): R79.89 - Other specified abnormal findings of blood chemistry Status: Acute Assessment and Plan: Her right upper quadrant ultrasound in a.m. Continue to monitor Subjective Date/time seen: 10/09/22 10:17 Interval history: No complaints Exam Narrative: Patient is laying in a stretcher Const: General: cooperative, comfortable, no acute distress, well developed, alert, awake, average body habitus and other (Well-appearing, apprehensive) Nutritional Appearance: average body habitus Orientation/consciousness: patient oriented x3 HENMT: Head: normal to inspection, normocephalic and atraumatic Ears: hearing grossly normal bilaterally Face/Nose/Sinus: normal facial exam Face and sinus: normal facial exam Eyes: General: appearance normal, both eyes and all related structures Pupils: Equal, round and reactive pupils present EOM: EOMs intact bilaterally Neck: Neck: full ROM, no lymphadenopathy and no JVD Thyroid: thyroid normal Lymphatic: no lymphadenopathy noted Resp: Effort & Inspection: normal respiratory effort and able to speak in complete sentences Auscultation: clear to auscultation bilaterally Cardio: Jugular venous distension: no JVD Rate: regular rate Rhythm: regular rhythm Heart sounds: S1 normal heart sound present and S2 normal heart sound present GI: Inspection: normal to inspection : General: Yes deferred Skin: Rashes: no rashes Wounds: no wounds Neuro: General: patient oriented x3 and CN's II-XI intact bilaterally Cranial nerves: Yes CN's II-XII intact bilaterally and Yes Equal, round and reactive pupils present Cognition (Neuro): normal cognition Speech: normal speech Gait exam (Neuro): Normal gait present Motor exam (neuro): 5/5 motor strength present throughout Sensory Exam: No Sensory deficit (Neuro) Extrem: General: normal to inspection, full ROM, no joint enlargement and no pedal edema Objective Data Vital Signs Vital Signs: Vital Signs - 24 hr 10/08/22 14:00 10/08/22 21:39 10/09/22 06:00 Temperature 97.6 F 98.1 F 97.2 F L Pulse Rate 60 56 L 56 L Respiratory Rate 18 16 16 Blood Pressure 145/99 H 153/84 H 167/83 H Pulse Oximetry 98 97 97 Intake/Output Intake/Output: Intake & Output 10/06/22 10/07/22 10/08/22 10/09/22 23:59 23:59 23:59 23:59 Intake Total 3620 0 Output Total 450 Balance 3170 0 Meds/Results Medications: Active Medications Generic Name Dose Route Start Last Admin Trade Name Freq PRN Reason Stop Dose Admin Enoxaparin Sodium 40 mg 10/08/22 09:00 10/09/22 08:56 Enoxaparin 40 Mg/0.4 Ml Syringe SUB-Q 40 mg DAILY JENELLE Administration Hydrochlorothiazide 12.5 mg 10/08/22 09:00 Hydrochlorothiazide 12.5 Mg Capsule PO DAILY JENELLE Hydromorphone HCl 0.5 mg 10/08/22 08:01 10/09/22 05:35 Hydromorphone Hcl Inj (*Crx) 1 Mg/Ml Syr IV PUSH 0.5 mg Q2H PRN Administration Pain Rated 7-10 Dextrose/Sodium Chloride 1,000 mls @ 60 mls/hr 10/08/22 23:35 10/08/22
--- NOTE | 2022-10-09 11:22 | PM.PNNEP ---
Progress Note: A&P Assessment and Plan (1) Hyponatremia: Code(s): E87.1 - Hypo-osmolality and hyponatremia Status: Acute Assessment and Plan: presumably due to volume depletion/dehydration given rapid correction with normal saline IVFs rapid/overcorrection in sodium (119 --> 129 in less than 24 hours) noted s/p D5W IVFs and DDAVP goal of therapy is 6 - 8 meq/L in 24hrs - this has been acheived evaluation to date: TSH and cortisol okay SPEP and UPEP as well as serum/urine osmolality pending follow repeat sodium levels (2) Acute pancreatitis: Qualifiers: Acute pancreatitis complication: no infection or necrosis Pancreatitis type: unspecified pancreatitis type Qualified Code(s): K85.90 - Acute pancreatitis without necrosis or infection, unspecified Code(s): K85.90 - Acute pancreatitis without necrosis or infection, unspecified Status: Acute Assessment and Plan: as noted by serum lipase level and imaging GI and Surgery recommendations noted NPO IVFs (while trying to keep sodium stable) pain control (3) Abdominal pain: Code(s): R10.9 - Unspecified abdominal pain Status: Acute Assessment and Plan: secondary to #2 continue supportive therapy (4) Abnormal LFTs: Code(s): R79.89 - Other specified abnormal findings of blood chemistry Status: Acute Assessment and Plan: related to pancreatitis (?) RUQ ultrasound results noted follow trend of LFTs Will continue to follow. Subjective Date/time seen: 10/09/22 11:22 Interval history: Follow-up for acute hyponatremia. Overcorrection of sodium level resolved with use of D5W IVFs and DDAVP yesterday; still NPO so restarted on IVFs (D5 1/2NS); still with abdominal pain but medications help tolerated; LFTs still elevated at this time. Exam Narrative: General: WD/WN male in NAD Heart: normal S1 and S2; no rub Lungs: clear to auscultation Abdomen: soft, mild TTP, nondistended, positive bowel sounds Extremities: no cyanosis or clubbing; no edema Skin: warm and dry Objective Data Vital Signs Vital Signs: Vital Signs Temp Pulse Resp BP Pulse Ox O2 Del Method 10/09/22 08:55 Room Air 10/09/22 06:00 97.2 F L 56 L 16 167/83 H 97 10/08/22 21:39 98.1 F 56 L 16 153/84 H 97 10/08/22 14:00 97.6 F 60 18 145/99 H 98 Intake/Output Intake/Output: Intake & Output 10/06/22 10/07/22 10/08/22 10/09/22 23:59 23:59 23:59 23:59 Intake Total 3620 0 Output Total 450 Balance 3170 0 Meds/Results Medications: Active Medications Generic Name Dose Route Start Last Admin Trade Name Freq PRN Reason Stop Dose Admin Enoxaparin Sodium 40 mg 10/08/22 09:00 10/09/22 08:56 Enoxaparin 40 Mg/0.4 Ml Syringe SUB-Q 40 mg DAILY JENELLE Administration Hydrochlorothiazide 12.5 mg 10/08/22 09:00 Hydrochlorothiazide 12.5 Mg Capsule PO DAILY JENELLE Hydromorphone HCl 0.5 mg 10/08/22 08:01 10/09/22 11:32 Hydromorphone Hcl Inj (*Crx) 1 Mg/Ml Syr IV PUSH 0.5 mg Q2H PRN Administration Pain Rated 7-10 Dextrose/Sodium Chloride 1,000 mls @ 60 mls/hr 10/08/22 23:35 10/08/22 23:53 Dextrose 5% Sodium Chloride 0.45% IV CONT 75 mls/hr .[id number] JENELLE Administration Losartan Potassium 50 mg 10/08/22 09:00 10/09/22 08:55 Losartan Potassium 50 Mg Tablet PO 50 mg DAILY JENELLE Administration Ondansetron HCl 4 mg 10/08/22 04:47 10/09/22 08:53 Ondansetron Inj 4 Mg/2 Ml Vial IV PUSH 4 mg Q4H PRN Administration Nausea Pantoprazole Sodium 40 mg 10/08/22 09:00 10/09/22 08:56 Pantoprazole Sodium Iv 40 Mg Vial IV PUSH 40 mg QAM JENELLE Administration Radiology Results: ITS Impressions Abdomen/Pelvis CT 10/08/22 08:20 IMPRESSION: 1. Acute interstitial pancreatitis. 2. Mildly dilated common duct. Abdomen Ultrasound 10/08/22 09:18 IMPRESSION: 1. Acute intersti
--- NOTE | 2022-10-09 11:22 | P.PNNP_ITS ---
Progress Note: A&P Assessment and Plan (1) Hyponatremia: Code(s): E87.1 - Hypo-osmolality and hyponatremia Status: Acute Assessment and Plan: * presumably due to volume depletion/dehydration given rapid correction with normal saline IVFs * rapid/overcorrection in sodium (119 --> 129 in less than 24 hours) noted * s/p D5W IVFs and DDAVP * goal of therapy is 6 - 8 meq/L in 24hrs - this has been acheived * evaluation to date: * TSH and cortisol okay * SPEP and UPEP as well as serum/urine osmolality pending * follow repeat sodium levels (2) Acute pancreatitis: Qualifiers: Acute pancreatitis complication: no infection or necrosis Pancreatitis type: unspecified pancreatitis type Qualified Code(s): K85.90 - Acute pancreatitis without necrosis or infection, unspecified Code(s): K85.90 - Acute pancreatitis without necrosis or infection, unspecified Status: Acute Assessment and Plan: * as noted by serum lipase level and imaging * GI and Surgery recommendations noted * NPO * IVFs (while trying to keep sodium stable) * pain control (3) Abdominal pain: Code(s): R10.9 - Unspecified abdominal pain Status: Acute Assessment and Plan: * secondary to #2 * continue supportive therapy (4) Abnormal LFTs: Code(s): R79.89 - Other specified abnormal findings of blood chemistry Status: Acute Assessment and Plan: * related to pancreatitis (?) * RUQ ultrasound results noted * follow trend of LFTs Will continue to follow. Subjective Date/time seen: 10/09/22 11:22 Interval history: Follow-up for acute hyponatremia. Overcorrection of sodium level resolved with use of D5W IVFs and DDAVP yesterday; still NPO so restarted on IVFs (D5 1/2NS); still with abdominal pain but medications help tolerated; LFTs still elevated at this time. Exam Narrative: General: WD/WN male in NAD Heart: normal S1 and S2; no rub Lungs: clear to auscultation Abdomen: soft, mild TTP, nondistended, positive bowel sounds Extremities: no cyanosis or clubbing; no edema Skin: warm and dry Objective Data Vital Signs Vital Signs: Vital Signs Temp Pulse Resp BP Pulse Ox O2 Del Method 10/09/22 08:55 Room Air 10/09/22 06:00 97.2 F L 56 L 16 167/83 H 97 10/08/22 21:39 98.1 F 56 L 16 153/84 H 97 10/08/22 14:00 97.6 F 60 18 145/99 H 98 Intake/Output Intake/Output: Intake & Output 10/06/22 10/07/22 10/08/22 10/09/22 23:59 23:59 23:59 23:59 Intake Total 3620 0 Output Total 450 Balance 3170 0 Meds/Results Medications: Active Medications Generic Name Dose Route Start Last Admin Trade Name Freq PRN Reason Stop Dose Admin Enoxaparin Sodium 40 mg 10/08/22 09:00 10/09/22 08:56 Enoxaparin 40 Mg/0.4 Ml Syringe SUB-Q 40 mg DAILY JENELLE Administration Hydrochlorothiazide 12.5 mg 10/08/22 09:00 Hydrochlorothiazide 12.5 Mg Capsule PO DAILY JENELLE Hydromorphone HCl 0.5 mg 10/08/22 08:01 10/09/22 11:32 Hydromorphone Hcl Inj (*Crx) 1 Mg/Ml Syr IV PUSH 0.5 mg Q2H PRN Administration Pain Rated 7-10 Dextro
[2022-10-09] MEDS: DEXTROSE 5%/0.45% SOD CHL 1,000 ML 75 ML IV CONT (12:52)
[2022-10-09 14:00] VITALS: BP 169/84; PULSE 56; RESP 14; TEMP 36.5; O2SAT 99
--- NOTE | 2022-10-09 15:49 | WPDGIPROGNO ---
Progress Note: A&P Assessment and Plan (1) Acute pancreatitis: Qualifiers: Acute pancreatitis complication: no infection or necrosis Pancreatitis type: unspecified pancreatitis type Qualified Code(s): K85.90 - Acute pancreatitis without necrosis or infection, unspecified Code(s): K85.90 - Acute pancreatitis without necrosis or infection, unspecified Status: Acute Assessment and Plan: start CL diet but only as tolerated continue with pain management (2) Alcohol abuse: Code(s): F10.10 - Alcohol abuse, uncomplicated Status: Acute Assessment and Plan: will need to quit altogether (3) Abnormal LFTs: Code(s): R79.89 - Other specified abnormal findings of blood chemistry Status: Acute Assessment and Plan: normal bili but still elevated transaminases continue to monitor (4) Hyponatremia: Code(s): E87.1 - Hypo-osmolality and hyponatremia Status: Acute Assessment and Plan: by nephrology (5) Abdominal pain: Code(s): R10.9 - Unspecified abdominal pain Status: Acute Subjective Date/time seen: 10/09/22 15:49 Interval history: still some abdominal pain and less nausea Review of Systems Review of Systems: All systems reviewed & are unremarkable except as noted in HPI and below Exam Const: General: comfortable, no acute distress, alert and awake HENMT: Head: normocephalic and atraumatic Mouth: Yes Normal oral and palatal mucosa present Eyes: Conjunctivae: conjunctivae normal Pupils: Equal, round and reactive pupils present EOM: EOMs intact bilaterally Neck: Neck: normal visual inspection, no lymphadenopathy and nontender Resp: Effort & Inspection: normal respiratory effort Auscultation: clear to auscultation bilaterally Cardio: Rate: regular rate Rhythm: regular rhythm Heart sounds: no gallops GI: Inspection: non-distended and scar GI Palp: Yes Soft to palpation, Yes Tenderness to palpation present (GI) (improving epigastric area) and Yes No hepatosplenomegaly present Skin: Lesions: no lesions Rashes: no rashes Neuro: General: no focal motor deficits and CN's II-XI intact bilaterally Cranial nerves: Yes Equal, round and reactive pupils present, Yes Bilaterally intact EOM present, Yes facial symmetry and Yes Midline tongue present Speech: normal speech Motor exam (neuro): 5/5 motor strength present throughout Extrem: General: no clubbing, cyanosis or edema Psych: Affect: normal affect Thought process: Normal thought process present Insight: Good insight present (Psych) Objective Data Vital Signs Vital Signs: Vital Signs - 24 hr 10/08/22 21:39 10/09/22 06:00 10/09/22 08:55 Temperature 98.1 F 97.2 F L Pulse Rate 56 L 56 L Respiratory Rate 16 16 Blood Pressure 153/84 H 167/83 H Pulse Oximetry 97 97 Oxygen Delivery Room Air 10/09/22 14:00 Temperature 97.7 F Pulse Rate 56 L Respiratory Rate 14 Blood Pressure 169/84 H Pulse Oximetry 99 Oxygen Delivery Intake/Output Intake/Output: Intake & Output 10/06/22 10/07/22 10/08/22 10/09/22 23:59 23:59 23:59 23:59 Intake Total 3620 1000 Output Total 450 Balance 3170 1000 Meds/Results Medications: Active Medications Generic Name Dose Route Start Last Admin Trade Name Freq PRN Reason Stop Dose Admin Enoxaparin Sodium 40 mg 10/08/22 09:00 10/09/22 08:56 Enoxaparin 40 Mg/0.4 Ml Syringe SUB-Q 40 mg DAILY JENELLE Administration Hydrochlorothiazide 12.5 mg 10/08/22 09:00 Hydrochlorothiazide 12.5 Mg Capsule PO DAILY JENELLE Hydromorphone HCl 0.5 mg 10/08/22 08:01 10/09/22 14:24 Hydromorphone Hcl Inj (*Crx) 1 Mg/Ml Syr IV PUSH 0.5 mg Q2H PRN Administration Pain Rated 7-10 Dextrose/Sodium Chloride 1,000 mls @ 60 mls/hr 10/08/22 23:35 10/09/22 12:52 Dextrose 5% Sodium Chloride 0.45% IV CONT 75 mls/hr .[id number] JENELLE Administration Losartan Potassium 50 mg 10/08/22 09:00 10/09/22
[2022-10-09 16:06] LABS: Anion Gap 3 mmol/L (8-16); Calcium 8.3 mg/dL (8.4-10.2); Carbon Dioxide 28 mmol/L (22-30); Chloride 97 mmol/L (98-107); Estimated Glomerular Filt Rate > 60; Glucose 97 mg/dL (65-110); Potassium 3.7 mmol/L (3.4-5.0); Sodium 128 mmol/L (137-145)
[2022-10-09 16:08] LABS: Blood Urea Nitrogen < 2 mg/dL (7-17)
[2022-10-09 20:00] VITALS: PULSE 63; RESP 18; O2SAT 100
[2022-10-09 21:53] VITALS: PULSE 63; RESP 18; TEMP 37; O2SAT 100
[2022-10-10] MEDS: ONDANSETRON INJ 4 MG/2 ML VIAL IV PUSH ×2 (03:47→07:37)
[2022-10-10] MEDS: HYDROmorphone HCL INJ (*CRX) 1 MG/ML SYR 0.5 MG IV PUSH ×6 (03:47→20:03)
[2022-10-10] MEDS: DEXTROSE 5%/0.45% SOD CHL 1,000 ML 75 ML IV CONT (03:52)
--- NOTE | 2022-10-10 05:40 | PC.NURSE ---
patient noted to have elevated BP's this shift. Spoke with Dr. Roman. New orders received for hydralazine 10mg IVP x1.
[2022-10-10] MEDS: hydrALAZINE HCL 20 MG/ML VIAL 10 MG IV PUSH (05:48)
[2022-10-10 06:00] VITALS: BP 172/82; PULSE 53; RESP 18; TEMP 36.7; O2SAT 100
[2022-10-10 06:37] LABS: Alanine Aminotransferase 138 U/L (6-35); Albumin Level 3.6 g/dL (3.5-5.1); Alkaline Phosphatase 136 U/L (38-126); Anion Gap 5 mmol/L (8-16); Aspartate Amino Transferase 115 U/L (14-36); Calcium 8.4 mg/dL (8.4-10.2); Carbon Dioxide 28 mmol/L (22-30); Chloride 99 mmol/L (98-107); Estimated Glomerular Filt Rate > 60; Glucose 107 mg/dL (65-110); Lipase 410 U/L (23-300); Potassium 3.4 mmol/L (3.4-5.0); Sodium 132 mmol/L (137-145)
[2022-10-10 06:50] VITALS: BP 141/76
[2022-10-10 07:31] LABS: Blood Urea Nitrogen < 2 mg/dL (7-17)
[2022-10-10] MEDS: LOSARTAN POTASSIUM 50 MG TABLET PO (08:28)
[2022-10-10] MEDS: ENOXAPARIN 40 MG/0.4 ML SYRINGE SUB-Q (08:29)
[2022-10-10] MEDS: PANTOPRAZOLE SODIUM IV 40 MG VIAL IV PUSH (08:29)
--- NOTE | 2022-10-10 11:12 | P.PNNP_ITS ---
Progress Note: A&P Assessment and Plan (1) Hyponatremia: Code(s): E87.1 - Hypo-osmolality and hyponatremia Status: Acute Assessment and Plan: * presumably due to volume depletion/dehydration given rapid correction with normal saline IVFs * rapid/overcorrection in sodium (119 --> 129 in less than 24 hours) noted * s/p D5W IVFs and DDAVP * goal of therapy is 6 - 8 meq/L in 24hrs - this has been acheived * evaluation to date: * TSH and cortisol okay * SPEP and UPEP as well as serum/urine osmolality pending * follow repeat sodium levels (2) Acute pancreatitis: Qualifiers: Acute pancreatitis complication: no infection or necrosis Pancreatitis type: unspecified pancreatitis type Qualified Code(s): K85.90 - Acute pancreatitis without necrosis or infection, unspecified Code(s): K85.90 - Acute pancreatitis without necrosis or infection, unspecified Status: Acute Assessment and Plan: * as noted by serum lipase level and imaging * GI and Surgery recommendations noted * NPO * IVFs (while trying to keep sodium stable) * pain control (3) Abdominal pain: Code(s): R10.9 - Unspecified abdominal pain Status: Acute Assessment and Plan: * secondary to #2 * continue supportive therapy (4) Abnormal LFTs: Code(s): R79.89 - Other specified abnormal findings of blood chemistry Status: Acute Assessment and Plan: * related to pancreatitis (?) * RUQ ultrasound results noted * follow trend of LFTs Will continue to follow. Subjective Date/time seen: 10/10/22 11:12 Interval history: Follow-up for acute hyponatremia. Overcorrection of sodium level resolved with use of D5W IVFs and DDAVP yesterday; still NPO so restarted on IVFs (D5 1/2NS); still with abdominal pain but medications help tolerated; LFTs still elevated at this time. Exam Narrative: General: WD/WN male in NAD Heart: normal S1 and S2; no rub Lungs: clear to auscultation Abdomen: soft, mild TTP, nondistended, positive bowel sounds Extremities: no cyanosis or clubbing; no edema Skin: warm and dry Objective Data Vital Signs Vital Signs: Vital Signs Temp Pulse Resp BP Pulse Ox O2 Del Method 10/10/22 06:50 141/76 H 10/10/22 06:00 98.0 F 53 L 18 172/82 H 100 10/09/22 20:00 63 18 100 Room Air 10/09/22 21:53 98.6 F 63 18 100 10/09/22 14:00 97.7 F 56 L 14 169/84 H 99 Intake/Output Intake/Output: Intake & Output 10/07/22 10/08/22 10/09/22 10/10/22 23:59 23:59 23:59 23:59 Intake Total 3620 1460 1300 Output Total 450 Balance 3170 1460 1300 Meds/Results Medications: Active Medications Generic Name Dose Route Start Last Admin Trade Name Freq PRN Reason Stop Dose Admin Enoxaparin Sodium 40 mg 10/08/22 09:00 10/10/22 08:29 Enoxaparin 40 Mg/0.4 Ml Syringe SUB-Q 40 mg DAILY JENELLE Administration Hydrochlorothiazide 12.5 mg 10/08/22 09:00 Hydrochlorothiazide 12.5 Mg Capsule PO DAILY JENELLE Hydromorphone HCl 0.5 mg 10/08/22 08:01 10/10/22 10:38 Hydromorphone Hcl Inj (*Crx) 1 Mg/Ml Syr IV PUSH 0.5 mg Q2H PRN Admini
--- NOTE | 2022-10-10 11:12 | PM.PNNEP ---
Progress Note: A&P Assessment and Plan (1) Hyponatremia: Code(s): E87.1 - Hypo-osmolality and hyponatremia Status: Acute Assessment and Plan: presumably due to volume depletion/dehydration given rapid correction with normal saline IVFs rapid/overcorrection in sodium (119 --> 129 in less than 24 hours) noted s/p D5W IVFs and DDAVP goal of therapy is 6 - 8 meq/L in 24hrs - this has been acheived evaluation to date: TSH and cortisol okay SPEP and UPEP as well as serum/urine osmolality pending follow repeat sodium levels (2) Acute pancreatitis: Qualifiers: Acute pancreatitis complication: no infection or necrosis Pancreatitis type: unspecified pancreatitis type Qualified Code(s): K85.90 - Acute pancreatitis without necrosis or infection, unspecified Code(s): K85.90 - Acute pancreatitis without necrosis or infection, unspecified Status: Acute Assessment and Plan: as noted by serum lipase level and imaging GI and Surgery recommendations noted NPO IVFs (while trying to keep sodium stable) pain control (3) Abdominal pain: Code(s): R10.9 - Unspecified abdominal pain Status: Acute Assessment and Plan: secondary to #2 continue supportive therapy (4) Abnormal LFTs: Code(s): R79.89 - Other specified abnormal findings of blood chemistry Status: Acute Assessment and Plan: related to pancreatitis (?) RUQ ultrasound results noted follow trend of LFTs Will continue to follow. Subjective Date/time seen: 10/10/22 11:12 Interval history: Follow-up for acute hyponatremia. Overcorrection of sodium level resolved with use of D5W IVFs and DDAVP yesterday; still NPO so restarted on IVFs (D5 1/2NS); still with abdominal pain but medications help tolerated; LFTs still elevated at this time. Exam Narrative: General: WD/WN male in NAD Heart: normal S1 and S2; no rub Lungs: clear to auscultation Abdomen: soft, mild TTP, nondistended, positive bowel sounds Extremities: no cyanosis or clubbing; no edema Skin: warm and dry Objective Data Vital Signs Vital Signs: Vital Signs Temp Pulse Resp BP Pulse Ox O2 Del Method 10/10/22 06:50 141/76 H 10/10/22 06:00 98.0 F 53 L 18 172/82 H 100 10/09/22 20:00 63 18 100 Room Air 10/09/22 21:53 98.6 F 63 18 100 10/09/22 14:00 97.7 F 56 L 14 169/84 H 99 Intake/Output Intake/Output: Intake & Output 10/07/22 10/08/22 10/09/22 10/10/22 23:59 23:59 23:59 23:59 Intake Total 3620 1460 1300 Output Total 450 Balance 3170 1460 1300 Meds/Results Medications: Active Medications Generic Name Dose Route Start Last Admin Trade Name Freq PRN Reason Stop Dose Admin Enoxaparin Sodium 40 mg 10/08/22 09:00 10/10/22 08:29 Enoxaparin 40 Mg/0.4 Ml Syringe SUB-Q 40 mg DAILY JENELLE Administration Hydrochlorothiazide 12.5 mg 10/08/22 09:00 Hydrochlorothiazide 12.5 Mg Capsule PO DAILY JENELLE Hydromorphone HCl 0.5 mg 10/08/22 08:01 10/10/22 10:38 Hydromorphone Hcl Inj (*Crx) 1 Mg/Ml Syr IV PUSH 0.5 mg Q2H PRN Administration Pain Rated 7-10 Dextrose/Sodium Chloride 1,000 mls @ 60 mls/hr 10/08/22 23:35 10/10/22 07:35 Dextrose 5% Sodium Chloride 0.45% IV CONT 60 mls/hr .[id number] JENELLE Infusion Losartan Potassium 50 mg 10/08/22 09:00 10/10/22 08:28 Losartan Potassium 50 Mg Tablet PO 50 mg DAILY JENELLE Administration Ondansetron HCl 4 mg 10/08/22 04:47 10/10/22 07:37 Ondansetron Inj 4 Mg/2 Ml Vial IV PUSH 4 mg Q4H PRN Administration Nausea Pantoprazole Sodium 40 mg 10/08/22 09:00 10/10/22 08:29 Pantoprazole Sodium Iv 40 Mg Vial IV PUSH 40 mg QAM JENELLE Administration Radiology Results: ITS Impressions Abdomen/Pelvis CT 10/08/22 08:20 IMPRESSION: 1. Acute interstitial pancreatitis. 2. Mildly dilated common duct. Abdomen Ultrasound
--- NOTE | 2022-10-10 11:30 | PM.IMPN ---
Progress Note: A&P Assessment and Plan (1) Acute pancreatitis: Qualifiers: Acute pancreatitis complication: no infection or necrosis Pancreatitis type: unspecified pancreatitis type Qualified Code(s): K85.90 - Acute pancreatitis without necrosis or infection, unspecified Code(s): K85.90 - Acute pancreatitis without necrosis or infection, unspecified Status: Acute Assessment and Plan: will advance diet to a low-fat diet tonight. Can likely discharge in 1-2 days if she tolerates a low-fat diet. Abdominal pain is improved (2) Abdominal pain: Code(s): R10.9 - Unspecified abdominal pain Status: Acute Assessment and Plan: improved (3) Hyponatremia: Code(s): E87.1 - Hypo-osmolality and hyponatremia Status: Acute Assessment and Plan: improved (4) Abnormal LFTs: Code(s): R79.89 - Other specified abnormal findings of blood chemistry Status: Acute Assessment and Plan: imaging noted, monitor. Labs are slowly improving Subjective Date/time seen: 10/10/22 11:30 Interval history: Tolerating full liquid diet Exam Narrative: Patient is laying in a stretcher Const: General: cooperative, comfortable, no acute distress, well developed, alert, awake, average body habitus and other (Well-appearing, apprehensive) Nutritional Appearance: average body habitus Orientation/consciousness: patient oriented x3 HENMT: Head: normal to inspection, normocephalic and atraumatic Ears: hearing grossly normal bilaterally Face/Nose/Sinus: normal facial exam Face and sinus: normal facial exam Mouth: Yes Normal oral and palatal mucosa present Eyes: General: appearance normal, both eyes and all related structures Conjunctivae: conjunctivae normal Pupils: Equal, round and reactive pupils present EOM: EOMs intact bilaterally Neck: Neck: full ROM, no lymphadenopathy and no JVD Thyroid: thyroid normal Lymphatic: no lymphadenopathy noted Resp: Effort & Inspection: normal respiratory effort and able to speak in complete sentences Auscultation: clear to auscultation bilaterally Cardio: Jugular venous distension: no JVD Rate: regular rate Rhythm: regular rhythm Heart sounds: S1 normal heart sound present and S2 normal heart sound present GI: Inspection: normal to inspection Auscultation: absent bowel sounds : General: Yes deferred Skin: Lesions: no lesions Rashes: no rashes Wounds: no wounds Neuro: General: patient oriented x3 and CN's II-XI intact bilaterally Cranial nerves: Yes CN's II-XII intact bilaterally and Yes Equal, round and reactive pupils present Cognition (Neuro): normal cognition Speech: normal speech Gait exam (Neuro): Normal gait present Motor exam (neuro): 5/5 motor strength present throughout Sensory Exam: No Sensory deficit (Neuro) Extrem: General: normal to inspection, full ROM, no joint enlargement and no pedal edema Psych: Affect: normal affect Thought process: Normal thought process present Insight: Good insight present (Psych) Objective Data Vital Signs Vital Signs: Vital Signs - 24 hr 10/09/22 14:00 10/09/22 21:53 10/09/22 20:00 Temperature 97.7 F 98.6 F Pulse Rate 56 L 63 63 Respiratory Rate 14 18 18 Blood Pressure 169/84 H Pulse Oximetry 99 100 100 Oxygen Delivery Room Air 10/10/22 06:00 10/10/22 06:50 Temperature 98.0 F Pulse Rate 53 L Respiratory Rate 18 Blood Pressure 172/82 H 141/76 H Pulse Oximetry 100 Oxygen Delivery Intake/Output Intake/Output: Intake & Output 10/07/22 10/08/22 10/09/22 10/10/22 23:59 23:59 23:59 23:59 Intake Total 3620 1460 1300 Output Total 450 Balance 3170 1460 1300 Meds/Results Medications: Active Medications Generic Name Dose Route Start Last Admin Trade Name Freq PRN Reason Stop Dose Admin Enoxaparin Sodium 40 mg 10/08/22 09:00 10/10/22 08:29 Enoxaparin 40 Mg/0.4 Ml Syringe SUB-Q 40 mg DAILY [facility] Adminis
[2022-10-10 14:00] VITALS: BP 160/84; PULSE 70; RESP 20; TEMP 36.1; O2SAT 99
--- NOTE | 2022-10-10 14:28 | WPDGIPROGNO ---
Progress Note: A&P Assessment and Plan (1) Acute pancreatitis: Qualifiers: Acute pancreatitis complication: no infection or necrosis Pancreatitis type: unspecified pancreatitis type Qualified Code(s): K85.90 - Acute pancreatitis without necrosis or infection, unspecified Code(s): K85.90 - Acute pancreatitis without necrosis or infection, unspecified Status: Acute Assessment and Plan: improving will advance to low fat diet as tolerated (2) Alcohol abuse: Code(s): F10.10 - Alcohol abuse, uncomplicated Status: Acute Assessment and Plan: will need to quit altogether, probably cause of pancreatitis (3) Abnormal LFTs: Code(s): R79.89 - Other specified abnormal findings of blood chemistry Status: Acute Assessment and Plan: normal bili and transaminases trending down continue to monitor (4) Hyponatremia: Code(s): E87.1 - Hypo-osmolality and hyponatremia Status: Acute Assessment and Plan: by nephrology, improving (5) Abdominal pain: Code(s): R10.9 - Unspecified abdominal pain Status: Acute Assessment and Plan: better Subjective Date/time seen: 10/10/22 14:28 Interval history: overall better, requiring less pain med and tolerating liquid diet Review of Systems Review of Systems: All systems reviewed & are unremarkable except as noted in HPI and below Exam Const: General: comfortable and no acute distress HENMT: Face/Nose/Sinus: Normal nares present Eyes: General: appearance normal, both eyes and all related structures Neck: Neck: no JVD Resp: Auscultation: clear to auscultation bilaterally Cardio: Rate: regular rate Rhythm: regular rhythm GI: Inspection: non-distended GI Palp: Yes Soft to palpation and No Guarding due to palpation present (GI) Auscultation: normal bowel sounds Skin: General skin exam: normal color Neuro: Speech: normal speech Motor exam (neuro): 5/5 motor strength present throughout Extrem: General: normal to inspection Psych: Mental Status: mental status grossly normal Objective Data Vital Signs Vital Signs: Vital Signs - 24 hr 10/09/22 21:53 10/09/22 20:00 10/10/22 06:00 Temperature 98.6 F 98.0 F Pulse Rate 63 63 53 L Respiratory Rate 18 18 18 Blood Pressure 172/82 H Pulse Oximetry 100 100 100 Oxygen Delivery Room Air 10/10/22 06:50 10/10/22 14:00 Temperature 97.0 F L Pulse Rate 70 Respiratory Rate 20 Blood Pressure 141/76 H 160/84 H Pulse Oximetry 99 Oxygen Delivery Intake/Output Intake/Output: Intake & Output 10/07/22 10/08/22 10/09/22 10/10/22 23:59 23:59 23:59 23:59 Intake Total 3620 1460 1540 Output Total 450 Balance 3170 1460 1540 Meds/Results Medications: Active Medications Generic Name Dose Route Start Last Admin Trade Name Freq PRN Reason Stop Dose Admin Enoxaparin Sodium 40 mg 10/08/22 09:00 10/10/22 08:29 Enoxaparin 40 Mg/0.4 Ml Syringe SUB-Q 40 mg DAILY JENELLE Administration Hydrochlorothiazide 12.5 mg 10/08/22 09:00 Hydrochlorothiazide 12.5 Mg Capsule PO DAILY JENELLE Hydromorphone HCl 0.5 mg 10/08/22 08:01 10/10/22 13:50 Hydromorphone Hcl Inj (*Crx) 1 Mg/Ml Syr IV PUSH 0.5 mg Q2H PRN Administration Pain Rated 7-10 Dextrose/Sodium Chloride 1,000 mls @ 60 mls/hr 10/08/22 23:35 10/10/22 07:35 Dextrose 5% Sodium Chloride 0.45% IV CONT 60 mls/hr .[id number] JENELLE Infusion Losartan Potassium 50 mg 10/08/22 09:00 10/10/22 08:28 Losartan Potassium 50 Mg Tablet PO 50 mg DAILY JENELLE Administration Ondansetron HCl 4 mg 10/08/22 04:47 10/10/22 07:37 Ondansetron Inj 4 Mg/2 Ml Vial IV PUSH 4 mg Q4H PRN Administration Nausea Pantoprazole Sodium 40 mg 10/08/22 09:00 10/10/22 08:29 Pantoprazole Sodium Iv 40 Mg Vial IV PUSH 40 mg QAM JENELLE Administration Radiology Results: ITS Impressions Abdomen/Pelvis CT 10/08/22 08:20 IMPRESS
[2022-10-10] MEDS: DEXTROSE 5%/0.45% SOD CHL 1,000 ML 60 ML IV CONT (20:02)
[2022-10-10 22:00] VITALS: BP 127/72; PULSE 76; RESP 16; TEMP 36.1; O2SAT 100
[2022-10-11] MEDS: HYDROmorphone HCL INJ (*CRX) 1 MG/ML SYR 0.5 MG IV PUSH ×3 (00:34→13:34)
[2022-10-11 06:00] VITALS: BP 177/83; PULSE 60; RESP 16; TEMP 35.7; O2SAT 100
[2022-10-11 06:49] LABS: Hematocrit 34.8 % (37.0-47.0); Hemoglobin 11.7 g/dL (12.0-15.0); Immature Platelet Fraction Pct 8.4 % (0.9-11.2); Mean Corpuscular HGB Conc 33.6 g/dl (32-36); Mean Corpuscular Hemoglobin 33.2 pg (26-34); Mean Corpuscular Volume 98.9 fl (80-100); Mean Platelet Volume 10.8 fl (7.4-10.4); Platelet Count Result 126 k/mm3 (150-375); Red Blood Count 3.52 M/mm3 (4.2-5.4); White Blood Count 4.8 K/mm3 (4.5-10.0)
[2022-10-11 06:59] LABS: Alanine Aminotransferase 86 U/L (6-35); Albumin Level 3.4 g/dL (3.5-5.1); Alkaline Phosphatase 114 U/L (38-126); Anion Gap 5 mmol/L (8-16); Aspartate Amino Transferase 51 U/L (14-36); Bilirubin,Total 0.9 mg/dL (0.2-1.3); Calcium 8.4 mg/dL (8.4-10.2); Carbon Dioxide 23 mmol/L (22-30); Chloride 101 mmol/L (98-107); Estimated Glomerular Filt Rate > 60; Glucose 118 mg/dL (65-110); Potassium 3.3 mmol/L (3.4-5.0); Sodium 129 mmol/L (137-145)
[2022-10-11 07:08] LABS: Blood Urea Nitrogen < 2 mg/dL (7-17)
[2022-10-11 08:28] VITALS: O2SAT 100
[2022-10-11] MEDS: PANTOPRAZOLE SODIUM IV 40 MG VIAL IV PUSH (09:04)
[2022-10-11] MEDS: LOSARTAN POTASSIUM 50 MG TABLET PO (09:05)
[2022-10-11] MEDS: ENOXAPARIN 40 MG/0.4 ML SYRINGE SUB-Q (09:05)
[2022-10-11] MEDS: POTASSIUM CHLORIDE 20 MEQ TABLET 40 MEQ PO (11:51)
--- NOTE | 2022-10-11 13:18 | PM.PNNEP ---
Progress Note: A&P Assessment and Plan (1) Hyponatremia: Code(s): E87.1 - Hypo-osmolality and hyponatremia Status: Acute Assessment and Plan: presumably due to volume depletion/dehydration given rapid correction with normal saline IVFs rapid/overcorrection in sodium (119 --> 129 in less than 24 hours) noted s/p D5W IVFs and DDAVP goal of therapy is 6 - 8 meq/L in 24hrs - this has been acheived evaluation to date: TSH and cortisol okay SPEP and UPEP as well as serum/urine osmolality pending follow repeat sodium levels (2) Acute pancreatitis: Qualifiers: Acute pancreatitis complication: no infection or necrosis Pancreatitis type: unspecified pancreatitis type Qualified Code(s): K85.90 - Acute pancreatitis without necrosis or infection, unspecified Code(s): K85.90 - Acute pancreatitis without necrosis or infection, unspecified Status: Acute Assessment and Plan: as noted by serum lipase level and imaging GI and Surgery recommendations noted diet being advanced pain control (3) Abdominal pain: Code(s): R10.9 - Unspecified abdominal pain Status: Acute Assessment and Plan: secondary to #2 continue supportive therapy (4) Abnormal LFTs: Code(s): R79.89 - Other specified abnormal findings of blood chemistry Status: Acute Assessment and Plan: related to pancreatitis (?) RUQ ultrasound results noted follow trend of LFTs Will continue to follow. Subjective Date/time seen: 10/11/22 13:18 Interval history: Follow-up for acute hyponatremia. Sodium as well as LFTs are improving with ongoing supportive therapy; tolerating diet and this is being slowly advanced; no other acute issues/problems overnight or earlier this morning. Exam Narrative: General: WD/WN male in NAD Heart: normal S1 and S2; no rub Lungs: clear to auscultation Abdomen: soft, mild TTP, nondistended, positive bowel sounds Extremities: no cyanosis or clubbing; no edema Skin: warm and intact Objective Data Vital Signs Vital Signs: Vital Signs Temp Pulse Resp BP Pulse Ox O2 Del Method 10/11/22 13:00 97.1 F L 61 18 153/96 H 99 10/11/22 08:28 100 Room Air 10/11/22 06:00 96.3 F L 60 16 177/83 H 100 10/10/22 22:00 96.9 F L 76 16 127/72 100 Intake/Output Intake/Output: Intake & Output 10/08/22 10/09/22 10/10/22 10/11/22 23:59 23:59 23:59 23:59 Intake Total 3620 1460 2890 420 Output Total 450 Balance 3170 1460 2890 420 Meds/Results Medications: Active Medications Generic Name Dose Route Start Last Admin Trade Name Freq PRN Reason Stop Dose Admin Alprazolam 0.25 mg 10/11/22 14:09 10/11/22 14:32 Alprazolam (*Crx) 0.25 Mg Tablet PO 0.25 mg TID PRN Administration Anxiety Enoxaparin Sodium 40 mg 10/08/22 09:00 10/11/22 09:05 Enoxaparin 40 Mg/0.4 Ml Syringe SUB-Q 40 mg DAILY JENELLE Administration Hydrochlorothiazide 12.5 mg 10/08/22 09:00 Hydrochlorothiazide 12.5 Mg Capsule PO DAILY JNEELLE Hydromorphone HCl 0.5 mg 10/08/22 08:01 10/11/22 13:34 Hydromorphone Hcl Inj (*Crx) 1 Mg/Ml Syr IV PUSH 0.5 mg Q2H PRN Administration Pain Rated 7-10 Losartan Potassium 50 mg 10/08/22 09:00 10/11/22 09:05 Losartan Potassium 50 Mg Tablet PO 50 mg DAILY JENELLE Administration Ondansetron HCl 4 mg 10/08/22 04:47 10/10/22 07:37 Ondansetron Inj 4 Mg/2 Ml Vial IV PUSH 4 mg Q4H PRN Administration Nausea Pantoprazole Sodium 40 mg 10/08/22 09:00 10/11/22 09:04 Pantoprazole Sodium Iv 40 Mg Vial IV PUSH 40 mg QAM JENELLE Administration Radiology Results: ITS Impressions Abdomen/Pelvis CT 10/08/22 08:20 IMPRESSION: 1. Acute interstitial pancreatitis. 2. Mildly dilated common duct. Abdomen Ultrasound 10/08/22 09:18 IMPRESSION: 1. Acute interstitial pancreatitis. 2. Common duct dilatation to 14 mm. 3.
--- NOTE | 2022-10-11 13:18 | P.PNNP_ITS ---
Progress Note: A&P Assessment and Plan (1) Hyponatremia: Code(s): E87.1 - Hypo-osmolality and hyponatremia Status: Acute Assessment and Plan: * presumably due to volume depletion/dehydration given rapid correction with normal saline IVFs * rapid/overcorrection in sodium (119 --> 129 in less than 24 hours) noted * s/p D5W IVFs and DDAVP * goal of therapy is 6 - 8 meq/L in 24hrs - this has been acheived * evaluation to date: * TSH and cortisol okay * SPEP and UPEP as well as serum/urine osmolality pending * follow repeat sodium levels (2) Acute pancreatitis: Qualifiers: Acute pancreatitis complication: no infection or necrosis Pancreatitis type: unspecified pancreatitis type Qualified Code(s): K85.90 - Acute pancreatitis without necrosis or infection, unspecified Code(s): K85.90 - Acute pancreatitis without necrosis or infection, unspecified Status: Acute Assessment and Plan: * as noted by serum lipase level and imaging * GI and Surgery recommendations noted * diet being advanced * pain control (3) Abdominal pain: Code(s): R10.9 - Unspecified abdominal pain Status: Acute Assessment and Plan: * secondary to #2 * continue supportive therapy (4) Abnormal LFTs: Code(s): R79.89 - Other specified abnormal findings of blood chemistry Status: Acute Assessment and Plan: * related to pancreatitis (?) * RUQ ultrasound results noted * follow trend of LFTs Will continue to follow. Subjective Date/time seen: 10/11/22 13:18 Interval history: Follow-up for acute hyponatremia. Sodium as well as LFTs are improving with ongoing supportive therapy; tolerating diet and this is being slowly advanced; no other acute issues/problems overnight or earlier this morning. Exam Narrative: General: WD/WN male in NAD Heart: normal S1 and S2; no rub Lungs: clear to auscultation Abdomen: soft, mild TTP, nondistended, positive bowel sounds Extremities: no cyanosis or clubbing; no edema Skin: warm and intact Objective Data Vital Signs Vital Signs: Vital Signs Temp Pulse Resp BP Pulse Ox O2 Del Method 10/11/22 13:00 97.1 F L 61 18 153/96 H 99 10/11/22 08:28 100 Room Air 10/11/22 06:00 96.3 F L 60 16 177/83 H 100 10/10/22 22:00 96.9 F L 76 16 127/72 100 Intake/Output Intake/Output: Intake & Output 10/08/22 10/09/22 10/10/22 10/11/22 23:59 23:59 23:59 23:59 Intake Total 3620 1460 2890 420 Output Total 450 Balance 3170 1460 2890 420 Meds/Results Medications: Active Medications Generic Name Dose Route Start Last Admin Trade Name Freq PRN Reason Stop Dose Admin Alprazolam 0.25 mg 10/11/22 14:09 10/11/22 14:32 Alprazolam (*Crx) 0.25 Mg Tablet PO 0.25 mg TID PRN Administration Anxiety Enoxaparin Sodium 40 mg 10/08/22 09:00 10/11/22 09:05 Enoxaparin 40 Mg/0.4 Ml Syringe SUB-Q 40 mg DAILY JENELLE Administration Hydrochlorothiazide 12.5 mg 10/08/22 09:00 Hydrochlorothiazide 12.5 Mg Capsule PO DAILY JENELLE Hydromorphone HCl 0.5 mg 10/08/22 08:01 10/11/22 13:34
[2022-10-11 14:00] VITALS: BP 153/96; PULSE 61; RESP 18; TEMP 36.2; O2SAT 99
[2022-10-11] MEDS: ALPRAZolam (*CRX) 0.25 MG TABLET PO ×2 (14:32→20:44)
--- NOTE | 2022-10-11 15:28 | WPDGIPROGNO ---
Progress Note: A&P Assessment and Plan (1) Acute pancreatitis: Qualifiers: Acute pancreatitis complication: no infection or necrosis Pancreatitis type: unspecified pancreatitis type Qualified Code(s): K85.90 - Acute pancreatitis without necrosis or infection, unspecified Code(s): K85.90 - Acute pancreatitis without necrosis or infection, unspecified Status: Acute Assessment and Plan: Patient with acute pancreatitis. Likely related to recent heavy alcohol intake. Long discussion with the patient regarding avoiding alcohol. Low-fat diet may also be beneficial. Pancreatitis itself likely contributes to patient's elevated LFTs. She has previously had a cholecystectomy be modest dilatation the common bile duct on imaging studies likely related to previous cholecystectomy. Plan to slowly advance diet. Currently she does not tolerate solid foods would recommend liquid diet advancing slowly to a low-fat diet. LFTs should be monitored after discharge to ensure they completely resolved. All labs are improving as time has progressed. Suggesting decrease inflammation in the pancreas. (2) Abnormal LFTs: Code(s): R79.89 - Other specified abnormal findings of blood chemistry Status: Acute Assessment and Plan: Elevated LFTs likely on the basis of pancreatitis are gradually improving. Would recommend follow-up LFTs after discharge to ensure complete resolution. Alcohol could contribute to this but pattern of elevated LFTs is unlikely to be from this. (3) Alcohol abuse: Code(s): F10.10 - Alcohol abuse, uncomplicated Status: Acute Assessment and Plan: Patient aware that alcohol likely precipitated pancreatitis. Long-term absence from alcohol encouraged. (4) History of gastric bypass: Code(s): Z98.84 - Bariatric surgery status Status: Acute Assessment and Plan: Patient has a prior history of gastric bypass. Currently stable doing well with this per (5) History of cholecystectomy: Code(s): Z90.49 - Acquired absence of other specified parts of digestive tract Status: Acute Assessment and Plan: patient has had previous cholecystectomy. No evidence for residual gallstones on imaging studies. Subjective Date/time seen: 10/11/22 15:28 Interval history: I have been asked to assume care in place of Dr. Braydon Stout. this is a 52-year-old white female patient who was admitted to the hospital with epigastric pain that began rather abruptly this weekend. For the last 5 days been in the hospital. CT scan imaging revealed interstitial pancreatitis. Patient with initial markedly elevated lipase greater than 5000 now is approximately 500. LFTs were quite elevated and now improved as well. 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 She has recently followed with her primary care physician was found have elevated iron. She is concerned because workup is in progress for possible hemochromatosis. Patient's recently . Over the last several weeks patient has been drinking more heavily than is typical for her. Typically vodka on a more less daily basis for recent weeks. She apparently did well until abdominal pain in the epigastric area began 5 days ago. She has no current nausea or vomiting. Initially was NPO, she currently tolerates a low-fat liquid diet. When she eats solid foods she has begun to have rather significant epigastric pain. Patient has no past medical history of diabetes. She did have a cholecystectomy at the time of her gastric bypass. No one else in the family has been ill. There is no family history of hemochromatosis. Review of Systems Review of Systems: Review of systems noncontributory. Exam Narrative: Physical exam reveals patient to be alert. Vital signs stable. HEENT exam unremarkable. Patient anicteric. Lungs are clear. Heart without murmur.
--- NOTE | 2022-10-11 16:11 | WPDPN ---
Progress Note: A&P Assessment and Plan (1) Acute pancreatitis: Qualifiers: Acute pancreatitis complication: no infection or necrosis Pancreatitis type: unspecified pancreatitis type Qualified Code(s): K85.90 - Acute pancreatitis without necrosis or infection, unspecified Code(s): K85.90 - Acute pancreatitis without necrosis or infection, unspecified Status: Acute Assessment and Plan: will advance diet to a low-fat diet tonight. Can likely discharge in 1-2 days if she tolerates a low-fat diet. Abdominal pain is improved 10/11/2022 interval history: 52-year-old female presented emergency depart with abdominal pain patient is found to have acute pancreatitis apparently patient recently and during bereavement patient consider excess alcohol and suspect resulting in acute pancreatitis, with elevated LFT, patient clinical symptoms are improved as patient is able to tolerate low-fat diet, patient is clinically anxious will start the patient Xanax 0.25 mg Q 8 p.r.n. and monitor. (2) Abdominal pain: Code(s): R10.9 - Unspecified abdominal pain Status: Acute Assessment and Plan: improved (3) Hyponatremia: Code(s): E87.1 - Hypo-osmolality and hyponatremia Status: Acute Assessment and Plan: improved (4) Abnormal LFTs: Code(s): R79.89 - Other specified abnormal findings of blood chemistry Status: Acute Assessment and Plan: imaging noted, monitor. Labs are slowly improving Subjective Date/time seen: 10/11/22 16:11 Interval history: 10/11/2022 interval history: 52-year-old female presented emergency depart with abdominal pain patient is found to have acute pancreatitis apparently patient recently and during bereavement patient consider excess alcohol and suspect resulting in acute pancreatitis, with elevated LFT, patient clinical symptoms are improved as patient is able to tolerate low-fat diet, patient is clinically anxious will start the patient Xanax 0.25 mg Q 8 p.r.n. and monitor. Review of Systems Review of Systems: Epigastric abdominal pain Exam Narrative: Patient is comfortable, NAD HEENT: eyes are clear and none icteric LUNGS: Normal respiratory effort ABD: Distended Lower extremities: no edema SKIN: nonjaundiced Neuro: grossly intact. Objective Data Vital Signs Vital Signs: Vital Signs - 24 hr 10/10/22 22:00 10/11/22 06:00 10/11/22 08:28 Temperature 96.9 F L 96.3 F L Pulse Rate 76 60 Respiratory Rate 16 16 Blood Pressure 127/72 177/83 H Pulse Oximetry 100 100 100 Oxygen Delivery Room Air 10/11/22 14:00 Temperature 97.1 F L Pulse Rate 61 Respiratory Rate 18 Blood Pressure 153/96 H Pulse Oximetry 99 Oxygen Delivery Intake/Output Intake/Output: Intake & Output 10/08/22 10/09/22 10/10/22 10/11/22 23:59 23:59 23:59 23:59 Intake Total 3620 1460 2890 540 Output Total 450 Balance 3170 1460 2890 540 Meds/Results Medications: Active Medications Generic Name Dose Route Start Last Admin Trade Name Freq PRN Reason Stop Dose Admin Alprazolam 0.25 mg 10/11/22 14:09 10/11/22 14:32 Alprazolam (*Crx) 0.25 Mg Tablet PO 0.25 mg TID PRN Administration Anxiety Enoxaparin Sodium 40 mg 10/08/22 09:00 10/11/22 09:05 Enoxaparin 40 Mg/0.4 Ml Syringe SUB-Q 40 mg DAILY JENELLE Administration Hydrochlorothiazide 12.5 mg 10/08/22 09:00 Hydrochlorothiazide 12.5 Mg Capsule PO DAILY JENELLE Hydromorphone HCl 0.5 mg 10/08/22 08:01 10/11/22 13:34 Hydromorphone Hcl Inj (*Crx) 1 Mg/Ml Syr IV PUSH 0.5 mg Q2H PRN Administration Pain Rated 7-10 Losartan Potassium 50 mg 10/08/22 09:00 10/11/22 09:05 Losartan Potassium 50 Mg Tablet PO 50 mg DAILY JENELLE Administration Ondansetron HCl 4 mg 10/08/22 04:47 10/10/22 07:37 Ondansetron Inj 4 Mg/2 Ml Vial IV PUSH 4 mg Q4H PRN Administration Nausea Panto
[2022-10-11 16:52] LABS: Anion Gap 6 mmol/L (8-16); Calcium 8.5 mg/dL (8.4-10.2); Carbon Dioxide 24 mmol/L (22-30); Chloride 102 mmol/L (98-107); Estimated Glomerular Filt Rate > 60; Glucose 92 mg/dL (65-110); Potassium 3.8 mmol/L (3.4-5.0); Sodium 132 mmol/L (137-145)
[2022-10-11 17:07] LABS: Osmolality, Urine 290 mOsm/kg (50-1200)
[2022-10-11 17:19] LABS: Blood Urea Nitrogen < 2 mg/dL (7-17)
[2022-10-11 20:00] VITALS: PULSE 61; RESP 14; O2SAT 100
[2022-10-11 21:25] VITALS: BP 152/88; PULSE 61; RESP 14; TEMP 36.4; O2SAT 100
[2022-10-12] MEDS: HYDROmorphone HCL INJ (*CRX) 1 MG/ML SYR 0.5 MG IV PUSH ×3 (05:13→12:40)
[2022-10-12 05:30] VITALS: BP 167/78; PULSE 88; RESP 14; TEMP 36.6; O2SAT 100
[2022-10-12 06:58] LABS: Hematocrit 38.2 % (37.0-47.0); Hemoglobin 12.8 g/dL (12.0-15.0); Mean Corpuscular HGB Conc 33.5 g/dl (32-36); Mean Corpuscular Hemoglobin 33.8 pg (26-34); Mean Corpuscular Volume 100.8 fl (80-100); Mean Platelet Volume 10.4 fl (7.4-10.4); Platelet Count Result 175 k/mm3 (150-375); Red Blood Count 3.79 M/mm3 (4.2-5.4); Red Cell Distribution Width 12.4 % (11.5-14.5); White Blood Count 4.7 K/mm3 (4.5-10.0)
[2022-10-12 07:11] LABS: Alanine Aminotransferase 78 U/L (6-35); Albumin Level 3.9 g/dL (3.5-5.1); Alkaline Phosphatase 125 U/L (38-126); Anion Gap 7 mmol/L (8-16); Aspartate Amino Transferase 39 U/L (14-36); Bilirubin,Total 0.7 mg/dL (0.2-1.3); Blood Urea Nitrogen 3 mg/dL (7-17); Calcium 9.1 mg/dL (8.4-10.2); Carbon Dioxide 26 mmol/L (22-30); Chloride 102 mmol/L (98-107); Estimated Glomerular Filt Rate > 60; Glucose 111 mg/dL (65-110); Magnesium 1.9 mg/dL (1.6-2.3); Potassium 4.2 mmol/L (3.4-5.0); Sodium 135 mmol/L (137-145)
[2022-10-12] MEDS: PANTOPRAZOLE SODIUM IV 40 MG VIAL IV PUSH (08:55)
[2022-10-12] MEDS: LOSARTAN POTASSIUM 50 MG TABLET PO (08:55)
--- NOTE | 2022-10-12 11:40 | WPDGIPROGNO ---
Progress Note: A&P Assessment and Plan (1) Acute pancreatitis: Qualifiers: Acute pancreatitis complication: no infection or necrosis Pancreatitis type: unspecified pancreatitis type Qualified Code(s): K85.90 - Acute pancreatitis without necrosis or infection, unspecified Code(s): K85.90 - Acute pancreatitis without necrosis or infection, unspecified Status: Acute Assessment and Plan: Patient with acute interstitial pancreatitis. Appears to be from recent alcohol usage. Plan to advance diet slowly to low-fat diet. She had pain when she ate solid foods. Currently on liquids. She can advance as tolerated. Agree with increasing ambulation. Discharge when diet tolerated. Pancreatic enzymes have improved as have her LFTs. (2) Abnormal LFTs: Code(s): R79.89 - Other specified abnormal findings of blood chemistry Status: Acute Assessment and Plan: Elevated LFTs improving. Likely related to pancreatitis. Less likely related to alcohol use but still a potential contributing cause. Recommend follow-up LFTs after discharge 1 week. (3) Alcohol abuse: Code(s): F10.10 - Alcohol abuse, uncomplicated Status: Acute Assessment and Plan: Alcohol abstinence strongly encouraged. Patient has been using alcohol since the recent tests of her . She remains in morning. Is quite anxious and may benefit from support. (4) History of gastric bypass: Code(s): Z98.84 - Bariatric surgery status Status: Acute Assessment and Plan: Patient with history of gastric bypass. This may also limit some of her dietary intake present. (5) History of cholecystectomy: Code(s): Z90.49 - Acquired absence of other specified parts of digestive tract Status: Acute Subjective Date/time seen: 10/12/22 11:40 Interval history: Patient alert more comfortable today. She states she had less pain on a liquid diet then previously with solid foods. She has been ambulating in the room somewhat. Still remains somewhat anxious. Review of Systems Review of Systems: Review of systems noncontributory. Exam Narrative: Physical exam reveals patient to be alert. She is afebrile and anicteric. Vital signs stable. Lungs are clear. Heart without murmur. Abdomen bowel sounds present soft with no localized tenderness or masses at this time. Objective Data Vital Signs Vital Signs: Vital Signs - 24 hr 10/11/22 14:00 10/11/22 21:25 10/11/22 20:00 Temperature 97.1 F L 97.5 F L Pulse Rate 61 61 61 Respiratory Rate 18 14 14 Blood Pressure 153/96 H 152/88 H Pulse Oximetry 99 100 100 Oxygen Delivery Room Air 10/12/22 05:30 Temperature 97.9 F Pulse Rate 88 Respiratory Rate 14 Blood Pressure 167/78 H Pulse Oximetry 100 Oxygen Delivery Intake/Output Intake/Output: Intake & Output 10/09/22 10/10/22 10/11/22 10/12/22 23:59 23:59 23:59 23:59 Intake Total 1460 2890 1090 972 Balance 1460 2890 1090 972 Meds/Results Medications: Active Medications Generic Name Dose Route Start Last Admin Trade Name Freq PRN Reason Stop Dose Admin Alprazolam 0.25 mg 10/11/22 14:09 10/11/22 20:44 Alprazolam (*Crx) 0.25 Mg Tablet PO 0.25 mg TID PRN Administration Anxiety Enoxaparin Sodium 40 mg 10/08/22 09:00 10/12/22 08:55 Enoxaparin 40 Mg/0.4 Ml Syringe SUB-Q Not Given DAILY JENELLE Hydrochlorothiazide 12.5 mg 10/08/22 09:00 Hydrochlorothiazide 12.5 Mg Capsule PO DAILY JENELLE Hydromorphone HCl 0.5 mg 10/08/22 08:01 10/12/22 10:33 Hydromorphone Hcl Inj (*Crx) 1 Mg/Ml Syr IV PUSH 0.5 mg Q2H PRN Administration Pain Rated 7-10 Losartan Potassium 50 mg 10/08/22 09:00 10/12/22 08:55 Losartan Potassium 50 Mg Tablet PO 50 mg DAILY JENELLE Administration Ondansetron HCl 4 mg 10/08/22 04:47 10/10/22 07:37 Ondansetron Inj 4 Mg/2 Ml Vial IV PUSH 4 mg Q4H PRN Administration Naus
[2022-10-12 13:47] VITALS: BP 149/80; PULSE 70; RESP 20; TEMP 36.6; O2SAT 100
[2022-10-12] MEDS: ALPRAZolam (*CRX) 0.25 MG TABLET PO ×2 (14:34→22:00)
--- NOTE | 2022-10-12 15:05 | WPDPN ---
Progress Note: A&P Assessment and Plan (1) Acute pancreatitis: Qualifiers: Acute pancreatitis complication: no infection or necrosis Pancreatitis type: unspecified pancreatitis type Qualified Code(s): K85.90 - Acute pancreatitis without necrosis or infection, unspecified Code(s): K85.90 - Acute pancreatitis without necrosis or infection, unspecified Status: Acute Assessment and Plan: will advance diet to a low-fat diet tonight. Can likely discharge in 1-2 days if she tolerates a low-fat diet. Abdominal pain is improved 10/12/2022 interval history:? 52-year-old female presented emergency depart with abdominal pain patient is found to have acute pancreatitis apparently patient recently and during bereavement patient consumed excess alcohol and suspect resulting in acute pancreatitis, with elevated LFT, patient clinical symptoms are improving as patient is able to tolerate low-fat diet, and her pain is improving today will stop the IV Dilaudid and start the patient on [place] 5/325, her LFT and electrolytes are improving patient is clinically anxious started the patient Xanax 0.25 mg Q 8 p.r.n. and monitor. If patient remains clinically stable will discharge the patient tomorrow (2) Abdominal pain: Code(s): R10.9 - Unspecified abdominal pain Status: Acute Assessment and Plan: improved (3) Hyponatremia: Code(s): E87.1 - Hypo-osmolality and hyponatremia Status: Acute Assessment and Plan: improved (4) Abnormal LFTs: Code(s): R79.89 - Other specified abnormal findings of blood chemistry Status: Acute Assessment and Plan: imaging noted, monitor. Labs are slowly improving Subjective Date/time seen: 10/12/22 15:05 Interval history: 10/12/2022 interval history:? 52-year-old female presented emergency depart with abdominal pain patient is found to have acute pancreatitis apparently patient recently and during bereavement patient consumed excess alcohol and suspect resulting in acute pancreatitis, with elevated LFT, patient clinical symptoms are improving as patient is able to tolerate low-fat diet, and her pain is improving today will stop the IV Dilaudid and start the patient on [place] 5/325, her LFT and electrolytes are improving patient is clinically anxious started the patient Xanax 0.25 mg Q 8 p.r.n. and monitor. If patient remains clinically stable will discharge the patient tomorrow Review of Systems Review of Systems: Epigastric abdominal pain Exam Narrative: Patient is comfortable, NAD HEENT: eyes are clear and none icteric LUNGS: Normal respiratory effort ABD: Distended Lower extremities: no edema SKIN: nonjaundiced Neuro: grossly intact. Objective Data Vital Signs Vital Signs: Vital Signs - 24 hr 10/11/22 21:25 10/11/22 20:00 10/12/22 05:30 Temperature 97.5 F L 97.9 F Pulse Rate 61 61 88 Respiratory Rate 14 14 14 Blood Pressure 152/88 H 167/78 H Pulse Oximetry 100 100 100 Oxygen Delivery Room Air 10/12/22 13:47 Temperature 97.8 F Pulse Rate 70 Respiratory Rate 20 Blood Pressure 149/80 H Pulse Oximetry 100 Oxygen Delivery Intake/Output Intake/Output: Intake & Output 10/09/22 10/10/22 10/11/22 10/12/22 23:59 23:59 23:59 23:59 Intake Total 1460 2890 1090 1772 Balance 1460 2890 1090 1772 Meds/Results Medications: Active Medications Generic Name Dose Route Start Last Admin Trade Name Freq PRN Reason Stop Dose Admin Hydrocodone Bitart/Acetaminophen 1 tab 10/12/22 12:47 Hydrocodone/Acetaminophen (*Crx) 5-325 Mg Tablet PO Q4H PRN Pain Rated 4-6 Alprazolam 0.25 mg 10/11/22 14:09 10/12/22 14:34 Alprazolam (*Crx) 0.25 Mg Tablet PO 0.25 mg TID PRN Administration Anxiety Enoxaparin Sodium 40 mg 10/08/22 09:00 10/12/22 08:55 Enoxaparin 40 Mg/0.4 Ml Syringe SUB-Q Not Given DAILY JENELLE Hydrochlorothiazi
[2022-10-12 15:08] LABS: Albumin 3.5 g/dL (3.8-4.8); Alpha 1 Globulin 0.3 g/dL (0.2-0.3); Alpha 2 Globulin 0.7 g/dL (0.5-0.9); Beta 1 Globulin 0.4 g/dL (0.4-0.6); Gamma Globulin 0.7 g/dL (0.8-1.7); Protein, Total 5.9 g/dL (6.1-8.1)
[2022-10-12] MEDS: HYDROcodone/acetaminophen (*CRX) 5-325 MG TABLET 1 TAB PO ×2 (17:47→22:00)
[2022-10-12 22:00] VITALS: BP 172/96; PULSE 66; RESP 18; TEMP 35.9; O2SAT 100
[2022-10-12] MEDS: hydrALAZINE HCL 20 MG/ML VIAL 10 MG IV PUSH (23:20)
[2022-10-13 00:30] VITALS: BP 130/89
[2022-10-13] MEDS: HYDROcodone/acetaminophen (*CRX) 5-325 MG TABLET 1 TAB PO ×4 (04:06→15:08)
[2022-10-13 05:45] VITALS: BP 157/88; PULSE 67; RESP 16; TEMP 35.9; O2SAT 100
[2022-10-13] MEDS: ALPRAZolam (*CRX) 0.25 MG TABLET PO ×2 (05:55→11:36)
[2022-10-13 06:57] LABS: Hematocrit 37.2 % (37.0-47.0); Hemoglobin 12.5 g/dL (12.0-15.0); Mean Corpuscular HGB Conc 33.6 g/dl (32-36); Mean Corpuscular Volume 101.1 fl (80-100); Mean Platelet Volume 10.2 fl (7.4-10.4); Platelet Count Result 206 k/mm3 (150-375); Red Blood Count 3.68 M/mm3 (4.2-5.4); Red Cell Distribution Width 12.5 % (11.5-14.5); White Blood Count 4.1 K/mm3 (4.5-10.0)
[2022-10-13 07:09] LABS: Alanine Aminotransferase 59 U/L (6-35); Albumin Level 3.8 g/dL (3.5-5.1); Alkaline Phosphatase 112 U/L (38-126); Anion Gap 3 mmol/L (8-16); Aspartate Amino Transferase 33 U/L (14-36); Bilirubin,Total 0.5 mg/dL (0.2-1.3); Blood Urea Nitrogen 6 mg/dL (7-17); Calcium 8.9 mg/dL (8.4-10.2); Carbon Dioxide 27 mmol/L (22-30); Chloride 105 mmol/L (98-107); Estimated Glomerular Filt Rate > 60; Glucose 97 mg/dL (65-110); Magnesium 1.8 mg/dL (1.6-2.3); Potassium 3.5 mmol/L (3.4-5.0); Sodium 135 mmol/L (137-145)
[2022-10-13] MEDS: LOSARTAN POTASSIUM 50 MG TABLET PO (07:56)
[2022-10-13] MEDS: PANTOPRAZOLE SODIUM IV 40 MG VIAL IV PUSH (07:56)
[2022-10-13] MEDS: ENOXAPARIN 40 MG/0.4 ML SYRINGE SUB-Q (07:56)
[2022-10-13 08:00] VITALS: O2SAT 100
--- NOTE | 2022-10-13 09:55 | PM.DS ---
DS: Admitting Diagnosis Discharge Date 10/13/2022 Admitting Diagnosis Epigastric abdominal pain DS: Discharge Diagnosis Discharge Diagnosis (1) Acute pancreatitis: Qualifiers: Acute pancreatitis complication: no infection or necrosis Pancreatitis type: unspecified pancreatitis type Qualified Code(s): K85.90 - Acute pancreatitis without necrosis or infection, unspecified Code(s): K85.90 - Acute pancreatitis without necrosis or infection, unspecified Status: Acute Assessment and Plan: will advance diet to a low-fat diet tonight. Can likely discharge in 1-2 days if she tolerates a low-fat diet. Abdominal pain is improved 10/12/2022 interval history:? 52-year-old female presented emergency depart with abdominal pain patient is found to have acute pancreatitis apparently patient recently and during bereavement patient consumed excess alcohol and suspect resulting in acute pancreatitis, with elevated LFT, patient clinical symptoms are improving as patient is able to tolerate low-fat diet, and her pain is improving today will stop the IV Dilaudid and start the patient on [place] 5/325, her LFT and electrolytes are improving patient is clinically anxious started the patient Xanax 0.25 mg Q 8 p.r.n. and monitor. If patient remains clinically stable will discharge the patient tomorrow (2) Abdominal pain: Code(s): R10.9 - Unspecified abdominal pain Status: Acute Assessment and Plan: improved (3) Hyponatremia: Code(s): E87.1 - Hypo-osmolality and hyponatremia Status: Acute Assessment and Plan: improved (4) Abnormal LFTs: Code(s): R79.89 - Other specified abnormal findings of blood chemistry Status: Acute Assessment and Plan: imaging noted, monitor. Labs are slowly improving DS: Summary Hospital Course Reason for hospitalization: Epigastric abdominal pain Narrative: This is a 52-year-old female with past medical history significant for gastric bypass surgery Charito-en-Y this was 17 years ago, obesity, patient presents today to the emergency room after she workup in the morning with epigastric abdominal pain she rated at 10/10 intensity, patient was able to have small meals during the day she rates the pain a 10/10 in intensity no alleviating factors or aggravating factors only relieved by pain medication patient denies any fevers, rigors, chills, nausea, vomiting, diarrhea has been in her usual state of health up until this point.? Preliminary workup was significant for a lipase of 5500, AST/ALT/alk phos 154/84/129 respectively, sodium [address] of abdomen and pelvis is in progress finalized report pending.? Patient is been admitted for further evaluation management and treatment. Hospital Course: ?52-year-old female presented emergency depart with abdominal pain patient is found to have acute pancreatitis apparently patient recently and during bereavement patient consumed excess alcohol and suspect resulting in acute pancreatitis, with elevated LFT, patient clinical symptoms are improving as patient is able to tolerate low-fat diet, and her pain is improving today will stop the IV Dilaudid and start the patient on [place] 5/325, her LFT and electrolytes are improving? patient is clinically anxious started the patient Xanax 0.25 mg Q 8 p.r.n. and monitor.? If patient remains clinically stable will discharge the patient tomorrow Today patient is clinically stable able to tolerate her diet her pain is controlled with oral medication, patient is seen by GI and stable to discharge today. 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
--- NOTE | 2022-10-13 10:09 | WPDGIPROGNO ---
Progress Note: A&P Assessment and Plan (1) Acute pancreatitis: Qualifiers: Acute pancreatitis complication: no infection or necrosis Pancreatitis type: unspecified pancreatitis type Qualified Code(s): K85.90 - Acute pancreatitis without necrosis or infection, unspecified Code(s): K85.90 - Acute pancreatitis without necrosis or infection, unspecified Status: Acute Assessment and Plan: Acute pancreatitis. Interstitial type noted on imaging. Clinically appears to be improving. Plan to advance to a low-fat diet as tolerated. Okay with me for discharge. LFTs essentially have returned to normal. Anticipate patient following up with primary care service after discharge. (2) Abnormal LFTs: Code(s): R79.89 - Other specified abnormal findings of blood chemistry Status: Acute Assessment and Plan: LFTs have returned almost to normal. Plan follow-up LFTs in 1 week to ensure resolution. (3) Alcohol abuse: Code(s): F10.10 - Alcohol abuse, uncomplicated Status: Acute Assessment and Plan: Alcohol appeared to precipitate current episode of pancreatitis. Patient should avoid a at alcohol. (4) History of gastric bypass: Code(s): Z98.84 - Bariatric surgery status Status: Acute (5) History of cholecystectomy: Code(s): Z90.49 - Acquired absence of other specified parts of digestive tract Status: Acute Subjective Date/time seen: 10/13/22 10:09 Interval history: Patient alert comfortable this morning. Still reports some abdominal pain with solid food but tolerating liquids without difficulty. Ambulating around the room. Now taking oral pain medications occasionally. Review of Systems Review of Systems: Review of systems noncontributory. Exam Narrative: Physical exam reveals patient to be alert. Comfortable at rest. HEENT exam reveals no icterus. Lungs are clear. Heart without murmur. Abdomen bowel sounds are present soft no localized tenderness no masses. Objective Data Vital Signs Vital Signs: Vital Signs - 24 hr 10/12/22 13:47 10/12/22 22:00 10/12/22 20:00 Temperature 97.8 F 96.6 F L Pulse Rate 70 66 Respiratory Rate 20 18 Blood Pressure 149/80 H 172/96 H Pulse Oximetry 100 100 Oxygen Delivery Room Air 10/13/22 00:30 10/13/22 05:45 10/13/22 08:00 Temperature 96.6 F L Pulse Rate 67 Respiratory Rate 16 Blood Pressure 130/89 157/88 H Pulse Oximetry 100 100 Oxygen Delivery Room Air Intake/Output Intake/Output: Intake & Output 10/10/22 10/11/22 10/12/22 10/13/22 23:59 23:59 23:59 23:59 Intake Total 2890 1090 2011 790 Balance 2890 1090 2011 790 Meds/Results Medications: Active Medications Generic Name Dose Route Start Last Admin Trade Name Freq PRN Reason Stop Dose Admin Hydrocodone Bitart/Acetaminophen 1 tab 10/12/22 12:47 10/13/22 07:56 Hydrocodone/Acetaminophen (*Crx) 5-325 Mg Tablet PO 1 tab Q4H PRN Administration Pain Rated 4-6 Alprazolam 0.25 mg 10/11/22 14:09 10/13/22 05:55 Alprazolam (*Crx) 0.25 Mg Tablet PO 0.25 mg TID PRN Administration Anxiety Enoxaparin Sodium 40 mg 10/08/22 09:00 10/13/22 07:56 Enoxaparin 40 Mg/0.4 Ml Syringe SUB-Q 40 mg DAILY JENELLE Administration Hydrochlorothiazide 12.5 mg 10/08/22 09:00 Hydrochlorothiazide 12.5 Mg Capsule PO DAILY JENELLE Losartan Potassium 50 mg 10/08/22 09:00 10/13/22 07:56 Losartan Potassium 50 Mg Tablet PO 50 mg DAILY JENELLE Administration Ondansetron HCl 4 mg 10/08/22 04:47 10/10/22 07:37 Ondansetron Inj 4 Mg/2 Ml Vial IV PUSH 4 mg Q4H PRN Administration Nausea Pantoprazole Sodium 40 mg 10/08/22 09:00 10/13/22 07:56 Pantoprazole Sodium Iv 40 Mg Vial IV PUSH 40 mg QAM JENELLE Administration Radiology Results: ITS Impressions Abdomen/Pelvis CT 10/08/22 08:20 IMPRESSION: 1. Acute interstitial pancreatitis. 2. Mil
[2022-10-13] MEDS: POTASSIUM CHLORIDE 20 MEQ TABLET 40 MEQ PO (11:36)
[2022-10-13 14:00] VITALS: BP 160/98; PULSE 106; RESP 17; TEMP 36.5; O2SAT 98
[2022-10-13 14:59] LABS: Chloride Rand Ur 58 mmol/L (32-290); Chloride/Creatinine Rand Ur 223 (38-318); Creatinine Random Urine 26 mg/dL (20-275)
[2022-10-16 04:58] LABS: Creatinine, Random Urine 27 mg/dL (20-275); Total Protein/Creatinine Ratio 667 mg/g creat (24-184)
== END 2022-10-13 15:11 | disposition home or self-care (01) | DRG 439 ==
LOC: ANHED 10-08 04:55 → ANH3MEDSUR 10-08 05:10
PROVIDERS: Chiropractor; Internal Medicine Nephrology; Admitting Provider Internal Medicine; Emergency Provider Emergency Medicine; PCP Nurse Practitioner Family; Visit Provider Family Medicine
DX: K85.20 Alcohol induced acute pancreatitis without necrosis or infection (principal); E87.1 Hypo-osmolality and hyponatremia; F10.10 Alcohol abuse, uncomplicated; Z90.49 Acquired absence of other specified parts of digestive tract; Z98.84 Bariatric surgery status
CPT/HCPCS: 36415; 74177; 76705; 80048; 80053; 81001; 81025; 81050; 82436; 82533; 82570; 83605; 83690; 83735; 83930; 83935; 84155; 84156; 84165; 84166; 84295; 84443; 84540; 85025; 85027; 85055; 96361; 96374; 96375; 96376; 99285; A9270; C9113; J0360; J1170; J1650; J2270; J2405; J2597; J3480; J7030; J7040; J7060; Q9967

== ENCOUNTER 2022-10-18 12:52 | Outpatient (CLI) | payer OTHER, SELFPAY ==
[2022-10-18 13:30] LABS: Alanine Aminotransferase 33 U/L (6-35); Albumin Level 4.4 g/dL (3.5-5.1); Alkaline Phosphatase 83 U/L (38-126); Amylase 114 U/L (30-110); Anion Gap 5 mmol/L (8-16); Aspartate Amino Transferase 37 U/L (14-36); Bilirubin,Total 0.5 mg/dL (0.2-1.3); Blood Urea Nitrogen 8 mg/dL (7-17); Calcium 9.5 mg/dL (8.4-10.2); Carbon Dioxide 31 mmol/L (22-30); Chloride 98 mmol/L (98-107); Estimated Glomerular Filt Rate > 60; Glucose 90 mg/dL (65-110); Lipase 150 U/L (23-300); Potassium 4.9 mmol/L (3.4-5.0); Sodium 134 mmol/L (137-145)
== END 2022-10-18 12:53 | disposition home or self-care (01) ==
PROVIDERS: PCP Nurse Practitioner Family; Visit Provider Nurse Practitioner Family
DX: K85.80 Other acute pancreatitis without necrosis or infection (principal)
CPT/HCPCS: 36415; 80053; 82150; 83690

== ENCOUNTER 2024-08-11 10:19 | Emergency (ER) | payer OTHER, SELFPAY ==
[2024-08-11 10:39] VITALS: BP 104/69; PULSE 90; RESP 16; TEMP 36.6; O2SAT 100
--- NOTE | 2024-08-11 11:12 | ED_ITS ---
HPI - URI/Sore Throat General Chief Complaint: Upper Respiratory Infection Stated Complaint: Cough/Congestion x1 month Source: patient Mode of arrival: ambulatory Limitations: no limitations History of Present Illness HPI Narrative: 54-year-old female presented for a non productive cough and a leaking nose for 1 month. Denies sinus congestion or headaches, sore throat, nausea vomiting diarrhea, fevers or chills. Taking occasional [id number] medicine for symptoms. Related Data Allergies Allergy/AdvReac Type Severity Reaction Status Date / Time No Known Allergies Allergy Verified 08/11/24 10:32 Review of Systems Review of Systems: CONSTITUTIONAL: Denies body aches, fever, chills, or sweats. EYES: Denies visual changes, redness, or discharge. ENT: reports rhinorrhea, Denies congestion, sore throat, or otalgia. CARDIOVASCULAR: Denies chest pain, palpitations, or edema. RESPIRATORY: Reports cough, denies sob, wheezing. GASTROINTESTINAL: Denies abdominal pain, nausea, vomiting, or diarrhea. NEUROLOGIC: Denies headache, numbness, tingling, or weakness. All systems reviewed & are unremarkable except as noted in HPI and below PMFSH Past Medical History Medical History Hypertension Anxiety Alcohol abuse Surgical History Surgical History (Updated 11/09/23 @ 13:04 by Luz Simental REACTOR KETTLE OPERATOR) History of carpal tunnel release History of Hx laparoscopic cholecystectomy History of gastric bypass Family History Family History (Updated 11/09/23 @ 13:03 by Luz Simental CMA) Father Diabetes mellitus Hypertension Heart disease Mother Asthma Diabetes mellitus Hypertension Heart disease Sibling Hypertension Depression Heart disease Social History Social History (Updated 07/23/24 @ 13:34 by Aleksey Brenner) Social History: 07/21/24 patients mom very confident with medical forms Smoking status: Never smoker Alcohol intake: current Drinks per week: 12 Substance use: never Substance use type: does not use Do You Feel Safe in your Home?: Yes Lack of Transportation: No Lack of Food: Never True Current Housing: I Have Housing Concerned About Future Housing: No Difficulty Paying Gas/Electric Bills: No Difficulty Paying for Meds: No Currently Unemployed: No Education: Grade School Difficulty w/ Childcare or Family Care: No Living arrangements: alone Additional living arrangements comments: Occupation/Education: occupation 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 Please see nursing chart for further information. There is no relevant family history pertinent to the presenting complaint Exam Narrative: GENERAL: Well-appearing, in no acute distress. EYES: EOMI. No redness or drainage. Conjunctivae normal. ENT: Mucous membranes pink and moist. No rhinorrhea. TMs normal bilaterally. Throat normal. Uvula midline. NECK: Normal AROM. Supple. CHEST: No respiratory distress. Lungs clear to all jara. Frequent rn labor and delivery cough. HEART: Regular rate and rhythm. No murmur appreciated. SKIN: Warm, dry, no rash. Capillary refill normal. Normal skin turgor. NEURO: Alert and oriented x3. Gait steady. PSYCH: Normal affect. Course Course Emergency Course: Patient is aware of diagnosis, understands and agrees to treatment plan. Anticipatory guidance given. Patient agrees to follow-up as directed and is aware of reasons to seek care at the emergency department. Portions of this record may have been created with voice recognition software Level of Care: Express Care Visit Vital Signs Vital signs: Vital Signs Temperature 97.8 F 08/11/24 10:39 Pulse Rate 90 08/11/24 10:39 Respiratory Rate 16 08/11/24 10:39 Blood Pressure 104/69 08/11/24 10:39 Pulse Oximetry 100 08/11/24 10:39 Oxygen Delivery Room Air 08/11/24 10:39 Temperature 97.8 F 08/11/24 10:39 Pulse Rate 90 08/11/24 10:39 Respiratory Rate 16 08/11/24 10:39 Blood Pressure 104/69 08/11/24 10:39 Pulse Oximetry 100 08/11/24 10:39 Oxygen Delivery Room Air 08/11/24 10:39 MDM - URI/Sore Throat MDM Narrative Medical decision making narrative: Discussed physical exam findings and reviewed RXs. Advised supportive measures and signs/symptoms to go to the ER. Pt is appropriate for outpt treatment and f/u. Differential Diagnosis Differential diagnosis: Likely upper respiratory infection, sinusitis, viral infection, bronchitis and other Discharge Plan Discharge Clinical Impression: Bronchitis Patient Disposition: Home, Self-Care Condition: Stable Instructions: Antibiotic Form, Acute Bronchitis (ED) Additional Instructions: Acute bronchitis can be contagious because it is usually caused by infection with a virus or bacteria. It is usually for a few days but you can be contagious for up to one week. Take medication as directed Recommendations: Flonase spray and Zyrtec (or Claritin/Jessica) over the counter Cough syrup may cause drowsiness; avoid driving or take it at night time. Delsym or RobitussinDM Tylenol 1000mg every 8 hours as needed for pain Symptomatic treatment includes: rest, fluids, and increase humidity of the air at home. Follow up with your primary care provider as needed in 1 week Go to the ER for worsening symptoms or concerns Patient Language: Chilean Prescriptions: New benzonatate 200 mg capsule 200 mg PO TID PRN (Reason: cough) Qty: 20 0RF methylprednisolone [Medrol (Christian)] 4 mg tablets,dose pack See Rx Instructions .ROUTE .COMPLEX Qty: 21 0RF Rx Instructions: orally per package directions amoxicillin-pot clavulanate 875-125 mg tablet 1 tablet PO Q12H 7 Days Qty: 14 0RF No Action trazodone 50 mg tablet 50 mg PO QHS Qty: 90 0RF escitalopram oxalate 20 mg tablet 20 mg PO DAILY Qty: 90 0RF Follow-up/Referrals: Anna Marie Ellis APRN [Primary Care Provider] - Time of Disposition: 11:21
== END 2024-08-11 11:25 | disposition home or self-care (01) ==
PROVIDERS: Emergency Provider Nurse Practitioner Family; PCP Nurse Practitioner Family
DX: J40 Bronchitis, not specified as acute or chronic (principal); R01.1 Cardiac murmur, unspecified; I10 Essential (primary) hypertension; Z98.84 Bariatric surgery status
CPT/HCPCS: 99213; G0463

== ENCOUNTER 2024-09-27 08:25 | Outpatient (CLI) | payer OTHER, SELFPAY ==
--- OUTSIDE RECORDS SUMMARY | 2024-09-27 08:29 | XMS_ITS | Clinical Summary ---
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 Gender Identity Not on file Sexual Orientation Not on file Plan of Treatment Health Maintenance Due Date Last Done Comments Hepatitis C Virus (HCV) Screening 1971 TdaP Immunization 1971 Hepatitis B Immunization (1 of 3 - 19+ 3-dose series) 1990 Pap Smear 02/15/1992 Cervical Cancer Screening (CCS) 2001 HPV/Cotest 2001 Colonoscopy 02/15/2016 Colorectal Cancer Screening 02/15/2016 Cologuard 2021 Immunochemical Fecal Occult Blood 2021 Mammogram 2021 Pneumococcal Immunization (5 0+ years) (1 of 1 - PCV) 2021 Zoster Immunization (1 of 2) 2021 Influenza Immunization (#1) 2024 SARS-COV-2 Immunization ( - season) 2024 Respiratory Syncytial Virus (RSV) Immunization (Adult) (1 - 1-dose 75+ series) 2046 Meningococcal Immunization (ACWY) Aged Out No longer eligible based on patient's age to complete this topic Pneumococcal Immunization Combined Aged Out No longer eligible based on patient's age to complete this topic Rotavirus Immunization Aged Out No lo nger eligible based on patient's age to complete this topic
[2024-09-27 09:34] LABS: Basophils Absolute Auto 0.1 K/mm3 (0.0-0.1); Basophils Percent Auto 0.7 % (0.2-1.2); Eosinophils Absolute Auto 0.2 K/mm3 (0-0.3); Eosinophils Percent Auto 1.1 % (0-4.4); Hematocrit 34.2 % (37.0-47.0); Immature Granulocyte Absolute 0.07 K/mm3 (0.00-0.031); Immature Granulocyte Percent A 0.5 % (0-0.5); Lymphocytes Absolute Auto 1.96 K/mm3 (0.9-3.2); Lymphocytes Percent Auto 14.6 % (18.3-44.2); Mean Corpuscular HGB Conc 32.2 g/dl (32-36); Mean Corpuscular Hemoglobin 34.2 pg (26-34); Mean Corpuscular Volume 106.2 fl (80-100); Mean Platelet Volume 10.1 fl (7.4-10.4); Monocytes Absolute Auto 1.1 K/mm3 (0.1-0.6); Monocytes Percent Auto 7.9 % (2.6-8.5); Neutrophils Absolute Auto 10.1 K/mm3 (1.3-6.7); Neutrophils Percent Auto 75.2 % (45.5-73.1); Platelet Count Result 182 k/mm3 (150-375); Red Blood Count 3.22 M/mm3 (4.2-5.4); Red Cell Distribution Width 16.3 % (11.5-14.5); White Blood Count 13.4 K/mm3 (4.5-10.0)
[2024-09-27 09:54] LABS: LDL Cholesterol Direct 142 mg/dL
[2024-09-27 09:58] LABS: Platelet Estimate Adequate (Adequate)
[2024-09-27 09:59] LABS: Macrocytosis 1+ (NORMAL)
[2024-09-27 10:00] LABS: Burr Cells 1+; Ovalocytes 1+; Schistocytes None Seen
[2024-09-27 10:23] LABS: Alanine Aminotransferase 31 U/L (6-35); Albumin Level 3.8 g/dL (3.5-5.1); Alkaline Phosphatase 206 U/L (38-126); Anion Gap 13 mmol/L (4-12); Aspartate Amino Transferase 217 U/L (14-36); Bilirubin,Total 3.2 mg/dL (0.2-1.3); Blood Urea Nitrogen 9 mg/dL (7-17); Calcium 8.9 mg/dL (8.4-10.2); Carbon Dioxide 19 mmol/L (22-30); Chloride 106 mmol/L (98-107); Cholesterol 291 mg/dL (0-200); Estimated Glomerular Filt Rate > 60; Glucose 128 mg/dL (65-110); HDL Direct 34 mg/dL; Sodium 138 mmol/L (137-145); Triglycerides 228 mg/dL (<150)
[2024-09-27 12:26] LABS: Hemoglobin A1C 4.3 % (<5.7)
== END 2024-09-27 08:26 | disposition home or self-care (01) ==
LOC: ANHLAB 08:28
PROVIDERS: PCP Nurse Practitioner Family; Visit Provider Nurse Practitioner Family
DX: F10.10 Alcohol abuse, uncomplicated (principal); Z13.0 Encounter for screening for diseases of the blood and blood-forming organs and certain disorders involving the immune mechanism; Z13.1 Encounter for screening for diabetes mellitus; Z13.220 Encounter for screening for lipoid disorders; Z13.29 Encounter for screening for other suspected endocrine disorder
CPT/HCPCS: 36415; 80053; 80061; 83036; 84443; 85025

== ENCOUNTER 2024-09-27 11:01 | Inpatient (IN) | payer OTHER, SELFPAY ==
[2024-09-27] VITALS (11 sets, daily range): BP systolic 105–124; BP diastolic 55–70; PULSE 60–84; RESP 12–18; TEMP 36.6–37.1; O2SAT 100
--- NOTE | ~2024-09-27 | CT_ITS ---
CTA brain carotid Ordering provider: Rex Arenas MD History: . artery occlusion? . Comparison: March 29, 2025 Technique: CT angiogram head and neck was performed following timed intravenous injection of contrast . Thin slice axial images and reformatted coronal images were obtained. Three dimensional reformatted images of the brain were also obtained using a [employer] workstation. Radiation reduction technique ut ilized.The dose-length product was 780.08 mGy-cm. 100 mL Omnipaque 350 was given IV. FINDINGS: HEAD: --ANTERIOR AND MIDDLE CEREBRAL ARTERIES AND BRANCHES: Normal caliber and contour. --INTERNAL CAROTID ARTERIES: Mild atheromatous disease but no significant stenosis. No occlusion. --BASILAR ARTERY AND BRANCHES: Normal caliber and contour. No atheromatous disease. --POSTERIOR CEREBRAL ARTERIES: Normal caliber and contour --POSTERIOR COMMUNICATING ARTERIES: Bilaterally visualized. --ANEURYSM: None visualized. --BRAIN: Please refer to report of CT head performed the same day. --BONES AND SUPERFICIAL SOFT TISSUES: Please refer to report of CT head performed the same day. --PARANASAL SINUSES AND MASTOIDS: Please refer to report of CT head done the same day. NECK: Motion Artifact is seen in the area of the bifurcation of the carotid arteries. --RIGHT CERVICAL CAROTID SYSTEM: Normal caliber and contour. Percent stenosis per NASCET criteria is 0%. No carotid dissection. Otherwise, no significant atheromatous disease or stenosis of the cervica l carotid system. --LEFT CERVICAL CAROTID SYSTEM: Normal caliber and contour. Percent stenosis per NASCET criteria is 0%. No carotid dissection. Otherwise, no significant atheromatous disease or stenosis of the cervical carotid system. --VERTEBRAL ARTERIES: Normal caliber and contour. --VISUALIZED AORTIC ARCH AND BRANCHING VESSELS: Mild atheromatous disease but no significant stenosis . --SOFT TISSUES: Normal. --CERVICAL SPINE: Sclerotic areas seen in the anterior superior and medial of T1. Otherwise, Normal. IMPRESSION: 1. Normal CTA head and neck. Percent stenosis per NASCET criteria is 0%. Reviewed, dictated and finalized at location A.
--- NOTE | ~2024-09-27 | CT_ITS ---
EXAMINATION: CT brain wo con DATE: 09/27/2024 12:34 INDICATION: Confusion TECHNIQUE: Computed tomography (CT) of the head was performed without intravenous contrast. Sagittal and coronal reconstructions were performed. The mA was adjusted according to patient size. Iterative reconstruction technique was employed. The dose-length product was 605.33 mGy-cm. COMPARISON: None FINDINGS: No acute intracranial hemorrhage, acute infarction or abnormal extra axial fluid collection. Ventricl es are normal and symmetric. No mass/mass effect. Linear increased density within the left basal gang regis which could represent either atherosclerotic calcification or thrombosis vessel. The orbits, para nasal sinuses and mastoid air cells are normal. IMPRESSION: 1. Linear increased density within the left basal ganglia which could represent either atheroscleroti c calcification or thrombosis of a lenticulostriate artery. Dr. Lobato discussed these findings wit h Dr. Herrera at 12:47 PM. Reviewed, dictated and finalized at location A. IMPRESSION: 1. Linear increased density within the left basal ganglia which could represent either atherosclerotic calcification or thrombosis of a lenticulostriate arter y. Dr. Lobato discussed these findings with Dr. Herrera at 12:47 PM.
--- NOTE | ~2024-09-27 | MR_ITS ---
MR brain/brain stem wo con Ordering provider: Angelic Sales PA-C History: 54 years Female with . Cognitive decline . Comparison: CT head performed yesterday. Technique: MRI brain was performed without contrast. FINDINGS: BONES: Normal. CRANIOCERVICAL JUNCTION: normal. PITUITARY: Normal. MAJOR INTRACRANIAL VESSELS: Normal flow void. OPTIC NERVES AND CRANIAL NERVES VII AND VIII COMPLEXES: Grossly normal. BRAIN PARENCHYMA AND CSF SPACES: Few scattered T2 and FLAIR hyperintense signal areas are noted sugg estive of deep white matter ischemic changes. White matter disease cannot be excluded. Follow-up advi sed. The brainstem and cerebellum are normal. No acute or chronic intracranial hemorrhage. No extra a xial fluid collections. Diffusion weighted and ADC mapping images reveal no recent ischemia. No midli ne shift or mass effect. PARANASAL SINUSES: Normal. MASTOIDS: Normal SUPERFICIAL/SURROUNDING SOFT TISSUES: Normal. IMPRESSION: 1. Few scattered T2 and FLAIR hyperintense signal areas which may indicate white matter disease vers us deep white matter ischemic changes. Otherwise, no significant abnormality seen. Reviewed, dictated and finalized at location A. IMPRESSION: 1. Few scattered T2 and FLAIR hyperintense signal areas which may indicate whi te matter disease versus deep white matter ischemic changes. Otherwise, no sign ificant abnormality seen.
--- OUTSIDE RECORDS SUMMARY | 2024-09-27 11:03 | XMS_ITS | Clinical Summary ---
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
--- NOTE | 2024-09-27 11:09 | ECG_ITS ---
Test Date: 2024-09-27 11:13:43 Measurements Intervals [place] Rate: 58 P: 7 ND: 133 QRS: -23 QRSD: 97 T: 6 QT: 371 QTc: 365 Interpretive Statements SINUS BRADYCARDIA WITH SINUS ARRHYTHMIA POSSIBLE ANTERIOR MYOCARDIAL INFARCTION , OF INDETERMINATE AGE BORDERLINE ST-T WAVE ABNORMALITY- INFERIOR LEADS BASELINE ARTIFACT- I, II, III ABNORMAL ECG No previous ECG available for comparison Electronically Signed On 09-27-2024 12:59:03 CDT by Surya Montalvo D.O.
--- OUTSIDE RECORDS SUMMARY | 2024-09-27 11:33 | XMS_ITS | Clinical Summary ---
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
--- NOTE | 2024-09-27 11:56 | ED_ITS ---
HPI - Recheck/Abnormal Lab/Rx General Chief Complaint: Recheck/Abnormal Lab/Rx Stated Complaint: LOW K+ FROM LABS TODAY Time Seen by Provider: 09/27/24 11:15 History of Present Illness HPI narrative: 54-year-old female with history of alcohol abuse presenting to the emergency department after being called with abnormal labs. She had a primary care provider appointment yesterday with laboratory studies drawn and referral for advanced imaging. She was called this morning after her potassium came back critical at 2.0. She was complaining of generalized malaise and weakness for several weeks. Her family member at bedside provides the majority of the collateral formation. She states the patient has been intermittently confused and worsening over last 3 weeks associated with generalized weakness and having difficulty walking. Patient herself states that she has no other complaints but does feel confused and weak. Denies any falls or injury. No blood thinner use. Endorses heavy drinking in the past but stopped recently in July. No known history of cirrhosis. Previous to this was otherwise in her normal state of health. She states she 1 time felt similarly when she had pancreatitis many years ago. Related Data Home Medications ?Medication ?Instructions ?Recorded ?Confirmed ?Last Taken ?Type hydroxyzine HCl 25 mg tablet 25 mg PO DAILY 09/26/24 09/27/24 Unknown History Allergies Allergy/AdvReac Type Severity Reaction Status Date / Time No Known Allergies Allergy Verified 09/27/24 18:03 Review of Systems 2 Review of Systems: As reviewed above in HPI [facility] Past Medical History Medical History Hypertension Anxiety Alcohol abuse Surgical History Surgical History History of carpal tunnel release History of Hx laparoscopic cholecystectomy History of gastric bypass Family History Family History Father Diabetes mellitus Hypertension Heart disease Mother Asthma Diabetes mellitus Hypertension Heart disease Sibling Hypertension Depression Heart disease Social History Social History Social History: 07/21/24 patients mom very confident with medical forms Smoking status: Never smoker Second hand tobacco smoke exposure: No Alcohol intake: former Drinks per week: 12 Substance use: never Substance use type: does not use Do You Feel Safe in your Home?: Yes Lack of Transportation: No Lack of Food: Never True Current Housing: I Have Housing Concerned About Future Housing: No Difficulty Paying Gas/Electric Bills: No Difficulty Paying for Meds: No Currently Unemployed: No Education: Associate Degree Difficulty w/ Childcare or Family Care: No Living arrangements: alone Additional living arrangements comments: Occupation/Education: occupation 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 Mucous membranes moist. NECK: Supple. CHEST: [Clear to auscultation. No respiratory distress.] HEART: [Regular rate and rhythm]. No murmur heard. [Normal peripheral pulses.] ABDOMEN: [Soft, nondistended], [nontender], [No rigidity or guarding] EXTREMITIES: Normal range of motion. [No edema.] SKIN: Slight yellowing to the skin, no rash, warm and dry extremities. NEURO: [No focal deficits]. Alert and oriented [x3.] Moving all extremities, ambulates PSYCH: [Normal mood and affect.] Course Vital Signs Vital signs: Vital Signs Temperature 36.6 C 09/27/24 11:15 Pulse Rate 73 09/27/24 11:15 Respiratory Rate 12 09/27/24 11:15 Blood Pressure 122/70 09/27/24 11:15 Pulse Oximetry 100 09/27/24 11:15 Oxygen Delivery Room Air 09/27/24 11:15 Temperature 36.6 C 09/27/24 11:15 Pulse Rate 68 09/27/24 18:00 Respiratory Rate 18 09/27/24 17:21 Blood Pressure 122/70 09/27/24 17:21 Pulse Oximetry 100 09/27/24 17:21 Oxygen Delivery Room Air 09/27/24 18:20 MDM - Recheck/Abnormal Lab/Rx MDM Narrative Medical decision making narrative: 54-year-old female with history of alcohol abuse and previous pancreatitis. She presents to the emergency room with abnormal labs from outpatient blood draw. Her potassium was 2.0 yesterday. Her family doctor called her and told to go the emergency department. She has been having increased weakness and confusion for the past 3 weeks according to the family member at bedside. Patient herself has no complaints at this time but does state that she felt weak. No nausea, vomiting, abdominal pain, back pain, fever, chills, falls or trauma. No blood thinner use. She has normal vital signs. Does appear slightly yellow but not overly jaundiced. Concern presently is for alcoholic liver disease, dehydration and malnourishment, hypokalemia, hypomagnesemia. Laboratory studies were drawn including repeat CBC and BMP, LFTs, magnesium level. CT of the head was ordered as well as alcohol level today. She will be provided IV and oral potassium upon new levels and EKG taken at this time. Patient's labs came back with a leukocytosis of 13.2 around her level yesterday. Normal hemoglobin, normal platelet counts. Potassium came back at 1.7 per laboratory evaluation. Normal creatinine, normal magnesium. Normal glucose. LFTs mildly elevated likely from alcoholic liver disease. Today's alcohol level is negative. Initial CT scan by Radiology shows either atherosclerotic calcification or thrombus in the lenticulostriate artery per radiology's called to me. CT angiography was ordered this time which showed no findings. Spoke to the neurologist on-call Dr. Patel who will be on consult for the patient during inpatient evaluation. Patient re-evaluated and doing well, no neurological deficits and she is ambulating without difficulty. She was given p.o. and IV potassium and we admitted to the IMU for continuous monitoring. EKG shows sinus bradycardia, normal QTC interval, normal LA interval. No ST segment elevations or depressions. Spoke to the hospitalist currently being covered by the midlevel provider Angelic who accepted the patient to the IMU at this time. Patient and family members were made aware of the plan and agreeable to admission. Medical Records Attestation: I reviewed the patient's medical records. Lab Data Attestation: I reviewed the patient's lab results. 09/27/24 11:54 09/27/24 14:27 Labs: Lab Results 09/27/24 09/27/24 Range/Units 11:54 14:27 WBC 13.2 H (4.5-10.0) K/mm3 RBC 3.41 L (4.2-5.4) M/mm3 Hgb 12.0 (12.0-15.0) g/dL Hct 36.8 L (37.0-47.0) % MCV 107.9 H (80-100) fl MCH 35.2 H (26-34) pg MCHC 32.6 (32-36) g/dl RDW 16.7 H (11.5-14.5) % Plt Count 178 (150-375) k/mm3 MPV 10.2 (7.4-10.4) fl Immature Gran % (Auto) 0.5 (0-0.5) % Neut % (Auto) 77.7 H (45.5-73.1) % Lymph % (Auto) 14.4 L (18.3-44.2) % Motley % (Auto) 5.9 (2.6-8.5) % Eos % (Auto) 0.7 (0-4.4) % Baso % (Auto) 0.8 (0.2-1.2) % Lymph # (Auto) 1.90 (0.9-3.2) K/mm3 Motley # (Auto) 0.8 H (0.1-0.6) K/mm3 Eos # (Auto) 0.1 (0-0.3) K/mm3 Baso # (Auto) 0.1 (0.0-0.1) K/mm3 Abs Immat Gran (auto) 0.07 H (0.00-0.031) K/mm3 Absolute Neuts (auto) 10.3 H (1.3-6.7) K/mm3 Absolute Nucleated RBC 0.000 (0.0-0.012) K/mm3 Band Neutrophils % Not Reportable Nucleated RBC % 0.0 (0.0-0.2) % Atypical Lymphocytes Present Platelet Estimate Adequate (Adequate) Anisocytosis 1+ Macrocytosis 1+ (NORMAL) Schistocytes None seen Sodium 138 (137-145) mmol/L Potassium < 2.0 L* (3.4-5.0) mmol/L Chloride 107 (98-107) mmol/L Carbon Dioxide 20 L (22-30) mmol/L Anion Gap 11 (4-12) mmol/L BUN 8 (7-17) mg/dL Creatinine 0.49 L (0.7-1.0) mg/dL Estim Creat Clear Calc Not Reportable Estimated GFR > 60 (59 - ) Glucose 113 H (65-110) mg/dL Calcium 8.7 (8.4-10.2) mg/dL Magnesium 2.1 (1.6-2.3) mg/dL Total Bilirubin 3.3 H (0.2-1.3) mg/dL AST 214 H (14-36) U/L ALT 31 (6-35) U/L Alkaline Phosphatase 191 H (38-126) U/L Total Protein 8.0 (6.3-8.2) g/dL Albumin 3.6 (3.5-5.1) g/dL Ethyl Alcohol < 10 (<10) mg/dL Imaging Data Attestation: I personally reviewed and interpreted this imaging study as follows: My impression: Impressions Head CT 09/27/24 12:41 IMPRESSION: 1. Linear increased density within the left basal ganglia which could represent either atherosclerotic calcification or thrombosis of a lenticulostriate artery. Dr. Lobato discussed these findings with Dr. Herrera at 12:47 PM. Head/Neck CTA 09/27/24 15:42 IMPRESSION: 1. Normal CTA head and neck. Percent stenosis per NASCET criteria is 0%. Critical Care Time Critical Care Time Critical Care Time: Yes Total Critical Care Time: 36 Discharge Plan Discharge Clinical Impression: Acute hypokalemia, Alcohol use disorder, Intermittent confusion, Abnormal CT of the head Patient Disposition: Still a Patient Condition: Stable
[2024-09-27 12:01] LABS: Basophils Absolute Auto 0.1 K/mm3 (0.0-0.1); Basophils Percent Auto 0.8 % (0.2-1.2); Eosinophils Absolute Auto 0.1 K/mm3 (0-0.3); Eosinophils Percent Auto 0.7 % (0-4.4); Hematocrit 36.8 % (37.0-47.0); Immature Granulocyte Absolute 0.07 K/mm3 (0.00-0.031); Immature Granulocyte Percent A 0.5 % (0-0.5); Lymphocytes Percent Auto 14.4 % (18.3-44.2); Mean Corpuscular HGB Conc 32.6 g/dl (32-36); Mean Corpuscular Hemoglobin 35.2 pg (26-34); Mean Corpuscular Volume 107.9 fl (80-100); Mean Platelet Volume 10.2 fl (7.4-10.4); Monocytes Absolute Auto 0.8 K/mm3 (0.1-0.6); Monocytes Percent Auto 5.9 % (2.6-8.5); Neutrophils Absolute Auto 10.3 K/mm3 (1.3-6.7); Neutrophils Percent Auto 77.7 % (45.5-73.1); Platelet Count Result 178 k/mm3 (150-375); Red Blood Count 3.41 M/mm3 (4.2-5.4); Red Cell Distribution Width 16.7 % (11.5-14.5); White Blood Count 13.2 K/mm3 (4.5-10.0)
[2024-09-27 12:22] LABS: Atypical Lymphocytes Present; Platelet Estimate Adequate (Adequate); Schistocytes None Seen
[2024-09-27 12:23] LABS: Anisocytosis 1+; Macrocytosis 1+ (NORMAL)
--- NOTE | 2024-09-27 13:49 | PC.NURSE ---
Phlebotomy called d/t pt difficult stick for blood. Phlebotomy arrived while pt in restroom at 1245 and left. Called again at approx 1325 with no answer.
[2024-09-27 14:44] LABS: Ethanol < 10 mg/dL (<10)
[2024-09-27 15:07] LABS: Alanine Aminotransferase 31 U/L (6-35); Albumin Level 3.6 g/dL (3.5-5.1); Alkaline Phosphatase 191 U/L (38-126); Anion Gap 11 mmol/L (4-12); Aspartate Amino Transferase 214 U/L (14-36); Bilirubin,Total 3.3 mg/dL (0.2-1.3); Blood Urea Nitrogen 8 mg/dL (7-17); Calcium 8.7 mg/dL (8.4-10.2); Carbon Dioxide 20 mmol/L (22-30); Chloride 107 mmol/L (98-107); Estimated Glomerular Filt Rate > 60; Glucose 113 mg/dL (65-110); Magnesium 2.1 mg/dL (1.6-2.3); Potassium < 2.0 mmol/L (3.4-5.0); Sodium 138 mmol/L (137-145)
[2024-09-27] MEDS: POTASSIUM CHLORIDE INJ 40 MEQ in SODIUM CHLORIDE 0.9% IV 500 ML 130 MEQ IVPB ×2 (15:41→23:50)
[2024-09-27] MEDS: POTASSIUM CHLORIDE 20 MEQ ER TABLET 40 MEQ PO ×2 (15:41→23:51)
--- NOTE | 2024-09-27 17:00 | P.HP_ITS ---
H&P: HPI History of Present Illness Date/Time: 09/27/24 20:00 Chief Complaint: Low potassium. Narrative: This is a 54-year-old female with a 2 year history of alcohol abuse, hypertension, hyperlipidemia, pancreatitis, anxiety, and depression who presented to the emergency department after she was found to have low potassium on labs drawn earlier this morning. The patient provides some history but she defers a lot of my questions to her [id number] Alayna who is at bedside. September states that the patient has been drinking heavily since her brother (the patient's ) . Sometime in June Rima contracted an upper respiratory infection and she has gone progressively downhill since that time. It sounds as though she was drinking more than usual in June and July and she settled into a deep depression. He was not eating much and barely left her room and she has lost about 25 lb since last fall. Family members convinced her to move in with her aunt at the end of July and the patient states that she has not had any alcohol since that time. Her aunt has not seen any evidence to suggest that she has been drinking however the patient works for [employer] and she is gone 6 days at a time and returns home for 5 days before her next trip. She returned home early last week after her last work rotation and at that time she reported that she was told that she needed to take a leave of absence as she was not able to keep up with her job. With further questioning it sounds as though she has been having trouble with her balance, is moving slower than usual, and is having problems with recall. The patient tells me that she feels as though she is ?short circuited.? She denies syncope, near syncope, head trauma, fever, headache, neck ache, cold and flu symptoms, chest pain, shortness of breath, abdominal pain, back pain, dysuria, and hematuria. She also denies vertigo, visual changes, facial droop, difficulty speaking and swallowing, focal weakness, and paresthesias. No suicidal thoughts. Again, she denies alcohol use since the end of July and also denies illicit drug use. She is not taking any egdt-pfw-muwieza medications or supplements. No personal or family history of dementia. In the ED: Her vital signs were stable on arrival. Labs are significant for a WBC count of 13.2, hemoglobin 12.0, hematocrit 36.8%, MCV 107.9, platelet 178, potassium less than 2, carbon dioxide 20, BUN 8, creatinine 0.49, glucose 113, magnesium 2.1, calcium 8.7, total bilirubin 3.3, AST 214, ALT 31, alkaline phosphatase 191, total protein 8.0, albumin 3.6, ethyl alcohol less than 10. Head CT showed a linear increased density within the left basal ganglia which could represent either atherosclerotic calcification or thrombus of the lenticulostriate artery. Subsequent CTA of the head and neck was normal. She was given potassium chloride 40 mEq p.o. and 40 mEq IV. She is being admitted in this setting for close monitoring and further workup. Review of Systems Review of Systems: 12 systems were reviewed and are negativ e except for as per HPI. [facility] Past Medical History Medical History Depression Hypertension Anxiety Alcohol abuse Surgical History Surgical History (Updated 09/27/24 @ 23:04 by Angelic Sales PA-C) History of section History of laparoscopic cholecystectomy History of carpal tunnel release History of gastric bypass Family History Family History Father Diabetes mellitus Hypertension Heart disease Mother Asthma Diabetes mellitus Hypertension Heart disease Sibling Hypertension Depression Heart disease Social History Social History (Updated 09/27/24 @ 23:05 by Angelic Sales PA-C) Social History: Surrogate medical decision maker: Alayna Torres ([id number]) or Delores Pina (daughter). Code status: Full code. Smoking status: Never smoker Second hand tobacco smoke exposure: No Alcohol intake: former Drinks per week: 12 Substance use: never Substance use type: does not use Do You Feel Safe in your Home?: Yes Lack of Transportation: No Lack of Food: Never True Current Housing: I Have Housing Concerned About Future Housing: No Difficulty Paying Gas/Electric Bills: No Difficulty Paying for Meds: No Currently Unemployed: No Education: Associate Degree Difficulty w/ Childcare or Family Care: No Living arrangements: with family Additional living arrangements comments: . Currently living with her aunt. 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 Spiritual care concerns: No Agree to blood products: Yes Meds Home Medications and Allergies Home Medications ?Medication ?Instructions ?Recorded ?Confirmed ?Type escitalopram oxalate 20 mg tablet 20 mg PO DAILY #90 tabs 06/13/24 09/27/24 Rx trazodone 50 mg tablet 50 mg PO QHS #90 tabs 09/02/24 09/27/24 Rx hydroxyzine HCl 25 mg tablet 25 mg PO DAILY 09/26/24 09/27/24 History Allergies Allergy/AdvReac Type Severity Reaction Status Date / Time No Known Allergies Allergy Verified 09/27/24 18:03 Vital Signs Vital Signs - 24 hr 09/27/24 11:15 09/27/24 11:16 09/27/24 12:56 Temperature 97.9 F Pulse Rate 73 62 60 Respiratory Rate 12 17 15 Blood Pressure 122/70 124/64 Pulse Oximetry 100 100 100 Oxygen Delivery Room Air 09/27/24 13:08 09/27/24 14:37 Temperature Pulse Rate 65 71 Respiratory Rate 13 18 Blood Pressure 105/55 L Pulse Oximetry 100 100 Oxygen Delivery Imaging Head CT 09/27/24 12:41 IMPRESSION: 1. Linear increased density within the left basal ganglia which could represent either atherosclerotic calcification or thrombosis of a lenticulostriate artery. Dr. Lobato discussed these findings with Dr. Herrera at 12:47 PM. Head/Neck CTA 09/27/24 15:42 IMPRESSION: 1. Normal CTA head and neck. Percent stenosis per NASCET criteria is 0%. Exam Narrative: General: Thin, somewhat frail-appearing female female in the semi-Morales position in bed. Weight: 49 kg. BMI: 23.4. HEENT: Normocephalic, atraumatic. No nystagmus. PERRL, EOMI. Mild scleral icterus. Moist mucous membranes. Neck: Supple. No obvious carotid bruits or thyromegaly. Respiratory: Lungs are clear to auscultation bilaterally. Cardiovascular: Regular rate and rhythm with S1-S2. Murmur at the left sternal border. Gastrointestinal: Abdomen is soft, nontender, and nondistended with positive bowel sounds. Skin: Warm and dry. Extremities: No cyanosis, clubbing, or edema. Radial and pedal pulses intact. Neurological: Alert and oriented x4. Cranial nerves 2-12 are grossly intact. Speech is clear but her thought process is slow and at times she seems to be having difficulties coming up with the words that she wants to say. No facial asymmetry. No pronator drift. Hand event security officer and foot pushes are equal bilaterally. Gait was not assessed. No tremors. No asterixis. Mild dysmetria with [id number]. Psychiatric: Pleasant and cooperative with appropriate mood. She seems to be in pretty good spirits. Also seems to be a bit forgetful. H&P: Results Labs Labs: Short CBC 09/27/24 Range/Units 11:54 WBC 13.2 H (4.5-10.0) K/mm3 Hgb 12.0 (12.0-15.0) g/dL Hct 36.8 L (37.0-47.0) % Plt Count 178 (150-375) k/mm3 BMP 09/27/24 14:27 Sodium 138 Potassium < 2.0 L* Chloride 107 Carbon Dioxide 20 L BUN 8 Creatinine 0.49 L Glucose 113 H Calcium 8.7 Liver Function 09/27/24 Range/Units 14:27 Total Bilirubin 3.3 H (0.2-1.3) mg/dL AST 214 H (14-36) U/L ALT 31 (6-35) U/L Alkaline Phosphatase 191 H (38-126) U/L Albumin 3.6 (3.5-5.1) g/dL Imaging Head CT 09/27/24 12:41 IMPRESSION: 1. Linear increased density within the left basal ganglia which could represent either atherosclerotic calcification or thrombosis of a lenticulostriate artery. Dr. Lobato discussed these findings with Dr. Herrera at 12:47 PM. Head/Neck CTA 09/27/24 15:42 IMPRESSION: 1. Normal CTA head and neck. Percent stenosis per NASCET criteria is 0%. Assessment and Plan Assessment and plan (1) Cognitive changes: Code(s): R41.89 - Other symptoms and signs involving cognitive functions and awareness Status: Acute (2) Hypokalemia: Code(s): E87.6 - Hypokalemia Status: Acute (3) Elevated LFTs: Code(s): R79.89 - Other specified abnormal findings of blood chemistry Status: Acute (4) Elevated MCV: Code(s): R71.8 - Other abnormality of red blood cells Status: Acute (5) Depression with anxiety: Code(s): F41.8 - Other specified anxiety disorders Status: Acute (6) Hypertension: Qualifiers: Hypertension type: primary hypertension Qualified Code(s): I10 - Essential (primary) hypertension Code(s): I10 - Essential (primary) hypertension Status: Acute Plan The patient presented to the emergency department after she was found to have low potassium on labs drawn this morning as detailed in HPI. Labs, imaging, EKG, and all reports were personally reviewed. She has progressively declined since the beginning of the year, worse in the past week or so, to the point where she was told to take a leave of absence from work. She admits that she was in a deep depression in December in July and drink much more during that time frame however is adamant that she has not had any alcohol since the beginning of August. Total bilirubin, AST, and alkaline phosphatase are all elevated although the AST is significantly elevated when compared to the others which makes me wonder if she is still drinking. Right upper quadrant ultrasound ordered; consider MRCP depending. The etiology of her cognitive decline is not entirely clear with a broad differential diagnosis. She does not have any focal deficits on exam however I think stroke needs to be considered. Wernicke-Korsakoff syndrome is consideration with her history of alcohol abuse. Early dementia is also a possibility. Doubt underlying infection. Likely not medication related. Brain MRI ordered for tomorrow. Several labs have been ordered as well to rule out other causes including vitamin B12, thiamine, folate, ammonia, and TSH. Urine drug screen is pending. One high-dose thiamine has been ordered for after her labs are drawn. Potassium stores are probably significantly depleted and I suspect she will need more than 80 mEq to get her levels closer to 4. Repeat BMP is pending this evening. She has been off antihypertensives since her weight loss and blood pressures are stable. She denies suicidal thoughts and her mood seems to be pretty good. Her home medications will be reviewed and resumed as appropriate. Findings and treatment plan were discussed with the patient and her [id number] at bedside, with the patient's permission. Questions were solicited and answered to satisfaction. The patient's medical management will be taken over by the hospitalist team in a.m. Quality VTE Prophylaxis VTE prophylaxis: pharmacologic ordered The patient has been admitted under observation status. Hospitalist MIPS Advance Care Plan I have confirmed that the patient's Advanced Care Plan is present, code status is documented, or surrogate decision maker is listed in patient medical record.: Yes Medication Reconciliation The patient is not eligible for med reconciliation; the patient is in a emergent medical situation where delaying treatment would jeopardize the patients health.: Yes
--- OUTSIDE RECORDS SUMMARY | 2024-09-27 17:48 | XMS_ITS | Clinical Summary ---
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
--- OUTSIDE RECORDS SUMMARY | 2024-09-27 17:49 | XMS_ITS | Data Portability ---
Author Organization [place] - [facility] [employer], Main Office Address [address] [place] [address] Assessment Encounter Date Assessment Date Assessment LastModified by Organization Details LastModified Time 10/17/2022 10/17/2022 I have reconciled the patient's medications post their discharge from inpatient facility. Not available 10/17/2022 17:45:40 Plan of Treatment Reminders Order Date Submit Date Provider Last Modified By Organization Details Last Modified Time Details Appointments None recorded. Lab amylase + lipase, serum 2022 023 [email or web address] [facility] (Lab), [address] [place], [address], 3 17:32:37 CMP, serum or plasma 2022 023 [facility] (Lab), [address] [place], [address], 3 15:55:53 vitamin D, 25-hydroxy, total, serum 2022 023 [facility] (Lab), [address] [place], [address], 3 09:48:14 vitamin B12 + folate, serum or blood 2022 023 [facility] (Lab), [address] [place], [address], 3 09:48:14 magnesium, serum or plasma 2022 023 [facility] (Lab), [address] [place], [address], 3 09:48:15 lipid panel, serum 2022 023 [facility] (Lab), [address] [place], [address], 3 09:48:14 iron + TIBC + ferritin, serum 2022 023 [facility] (Lab), [address] [place], [address], 3 09:48:14 TSH, serum or plasma 2022 023 [facility] (Lab), [address] [place], [address], 3 09:48:15 CBC w/ auto diff 2022 023 [facility] (Lab), [address] [place], [address], 3 09:48:14 CMP, serum or plasma 2022 023 [facility] (Lab), [address] [place], [address], 3 09:48:14 glycohemogl obin, total, blood 2022 023 [facility] (Lab), [address] [place], [address], 3 09:48:14 Referral None recorded. Procedures None recorded. Surgeries None recorded. Imaging MAMMO, screening, digital, bilateral 2022 023 [email or web address] [facility], [address], [address], [place], [address], 3 10:50:57 XR, chest 2022 023 JULIA Not available 12:56:19 electrocard iogram 2022 023 JULIA Not available 15:36:05 Medication Orders methocarbam ol 500 mg tablet 2022 023 [facility]armacy #2510, [address] [place], [address], 3 14:57:04 atenolol 50 mg tablet 2022 023 [facility] [address] [place], [address], 3 14:57:04 Lexapro 20 mg tablet 2022 023 [facility] [address] [place], [address], 3 14:57:03 losartan 100 mg tablet 2022 023 [facility]/Pharmacy #2510, [address] [place], [address], 3 17:39:09 hydrochloro thiazide 12.5 mg capsule 2022 023 [facility]Pharmacy #2510, [address] [place], [address], 3 17:39:08 hydroxyzine HCl 25 mg tablet 2022 023 [facility] #2510, [address] [place], [address], 3 17:39:08 losartan 50 mg tablet 2022 023 [facility]/Pharmacy #2510, [address] [place], [address], 3 17:44:40 hydrochloro thiazide 12.5 mg capsule 2022 023 [facility]Pharmacy #3953, [address] [place], [address], 15:17:11 Patient TargetsNo targets recorded. Patient Instructions Encounter Date Encounter Id Patient Instructions Last Modified By Organization Details Last Modified Time 09/14/2022 [id number] FU in 2 weeks fo r bp, labs, ekg, chest xray. Not available 09/14/2022 15:20:02 10/17/2022 [id number] Thank you for your visit to our office today. We would like to request that you reach out to your referring or previous provider and request that they send us a Summary of Care in electronic form, so that we may have it on file in your medical record. At your visit, we had the medical records we needed to provide you with the best possible care; however, for insurance purposes, an electronic Summary of Care is beneficial. Thank you for your assistance in obtaining this information and we look forward to providing continued care to you. Please review your medication list from the Summary of Care for this visit. If there are any differences from what you are currently taking at home, please call us to discuss. Not available 10/17/2022 16:58:55 Homebound Status : {{Patient has an inability to leave the home without a taxing effort and assistance from another person Does not meet homebound status}} Required Home Health Services: {{none fpc, physical therapy, occupational therapy fpc, physical therapy fpc}} Durable Medical Equipment needed: {{cane walker wal ker with seat manual wheelchair bedsid e commode oxygen}} Billing Guidelines CPT code 10006- Transitional Care Management services with moderate medical decision complexity (prlw-gh-fsdn visit within 14 days of discharge). CPT code 48173- Transitional Care Management services with high medical decision complexity (kmnk-zh-pxtk visit within 7 days of discharge). Not available 10/17/2022 16:58:55 11/29/2022 [id number] FU in 2 mo for htn, lipid, depression/anxiet y, back pain Not available 11/29/2022 15:02:11 01/24/2023 [id number] FU in 6 mo for htn, lipid, depression/anxiet y, back pain [email or web address] Not available 01/24/2023 14:35:26 Reason for Referral None Reported. Results Created Date Observation Date Name Description Value Unit Range Abnormal Flag Note LastModifiedBy Organization Detail LastModifiedTime 09/16/1909/15/2022 XR, chest No observ ation record ed. [address], [place], [address], 09/15/2022 17:18:09 09/17/19 23 09/15/2022 elect sami julesgr am No observ ation record ed. [address] (Resp Services) [address] [place] [address], [address], 09/21/2022 14:34:20 10/09/19 23 10/08/2022 CT, abdom en + pelvi s, w/ contr ast No observ ation record ed. [address] [address], [place], [address], 10/09/2022 16:44:06 10/09/19 23 10/08/2022 US, abdom en, limit ed No observ ation record ed. [address], [address], 10/09/2022 16:44:51 Result Notes None recorded. Problems Name Problem SNOMED Code Status Onset Date Resolution Date Notes Provider Name and Address Organization Details Recorded Time Essential hypertensio n 35006053 Active 2022 Anna Marie Ellis NP [address], [address], [place], [address], [employer] 3 15:04:17 Serum iron above reference range 296512960 Active 2022 Anna Marie Ellis NP [address], [address], [place], [address], [employer] 3 19:52:39 Liver enzymes level above reference range 552235690 Active 2022 Anna Marie Ellis NP [address], [address], [place], [address], [employer] 3 19:52:54 Hyperlipide phyllis 05038055 Active 2022 Anna Marie Ellis NP [address], [address], [place], [address], [employer] 3 19:53:00 Hyperglycem ia 58258738 Active 2022 Anna Marie Ellis NP [address], [address], [place], [address], [employer] 3 19:53:08 Hemochromat osis 319437398 Active 2022 Anna Marie Ellis NP [address], [address], [place], [address], [employer] 3 19:53:53 Anxiety 16509058 Active 2022 Anna Marie Ellis NP [address], [address], [place], [address], [employer] 3 11:30:16 Mixed anxiety and depressive disorder 354790279 Active 2022 Anna Marie Ellis NP [address], [address], [place], [address], [employer] 3 17:20:40 Gastroesoph ageal reflux disease 367326099 Active 2022 Anna Marie Ellis NP [address], [address], [place], [address], [employer] 3 17:29:08 Acute pancreatiti s 017927063 Active 2022 Anna Marie Ellis NP [address], [address], [place], [address], [employer] [place] [facility] [employer] 3 17:36:34 Bereavement 96853229 Active 2022 Anna Marie Ellis NP [address], [address], [place], [address], [employer] 17:59:21 Spasm of back muscles 701748878 Active 2022 Anna Marie Ellis NP [address], [address], [place], [address], [employer] 14:50:55 Bilateral tinnitus 5741739296548 Active 2022 Anna Marie Ellis NP [address], [address], [place], [address], [employer] [facility] 14:33:11 Problem Notes None recorded. Procedures Surgical History Date Name Laterality Status Provider Name and Address Organization Details Recorded Time 10/18/19 Transitional_Care_M anagement completed Anna Marie Talamantes RN [facility] [employer] [facility] 10/17/2022 16:58:55 06/04/19 Gastric bypass for obesity completed Anna Marie Ellis NP [address] [facility], [address], [place], [address], [employer] [facility] 09/14/2022 15:11:10 section completed Anna Marie Talamantes RN [facility] [employer] [facility] 09/14/2022 14:50:55 cholecystectomy completed Anna Marie Talamantes RN [facility] [employer] [facility] 09/14/2022 14:51:09 decompression of ulnar nerve completed Anna Marie Talamantes RN [facility] [employer] [facility] 09/14/2022 14:52:53 Carpal tunnel surgery completed Anna Marie Talamantes RN [facility] [employer] [facility] 09/14/2022 14:53:05 Imaging Results Imaging Date Name Status LastModified by Organization Details LastModified Time 09/15/2022 XR, chest completed [address] [facility] [address], [place], [address], 09/15/2022 17:18:09 09/15/2022 electrocardiogram completed [address] (Resp Services) [address] [place] [address] [address], [place], [address], 09/21/2022 14:34:20 10/08/2022 CT, abdomen + pelvis, w/ contrast completed [address], [place], [address], 10/09/2022 16:44:06 10/08/2022 US, abdomen, limited completed [address], [place], [address], 10/09/2022 16:44:51 Procedure Notes None recorded. Medical Equipment None Reported. Allergies No known drug allergies Medications Name Sig Start Date Stop Date Status Note LastModified by Organization Details LastModified Time losartan 50 mg tablet TAKE 1 TABLET BY MOUTH EVERY DAY 10/17 completed Not Available Not Available Not Available methocarbam ol 500 mg tablet TAKE 1 TABLET 3 TIMES A DAY BY ORAL ROUTE NEEDED. active Not Available Not Available No t Available hydrocodone 5 mg-acetamin ophen 325 mg tablet TAKE 1 TABLET BY MOUTH EVERY 6 HOURS NEEDED 11/29 completed Not Available Not Available Not Available alprazolam 0.25 mg tablet 11/29 completed Not Available Not Available Not Available pantoprazol e 40 mg tablet,jayesh yed release 1 tab po daily. 11/29 completed Not Available Not Available Not Available hydrochloro thiazide 12.5 mg capsule TAKE 1 CAPSULE BY MOUTH EVERY DAY active Not Available Not Available No t Available hydroxyzine HCl 25 mg tablet TAKE 1 TABLET 3 TIMES A DAY BY ORAL ROUTE NEEDED. active Not Available Not Available No t Available methylpredn isolone 4 mg tablets in a dose pack TAKE 6 TABLETS ON DAY 1 DIRECTED ON PACKAGE AND DECREASE BY 1 TAB EACH DAY FOR A TOTAL OF 6 DAYS 09/14 completed Not Available Not Available Not Available losartan 100 mg tablet TAKE 1 TABLET BY MOUTH EVERY DAY active Not Available Not Available No t Available atenolol 50 mg tablet TAKE 1 TABLET BY MOUTH EVERY DAY active Not Available Not Available No t Available amoxicillin 875 mg-potassiu m clavulanate 125 mg tablet TAKE 1 TABLET BY MOUTH EVERY 12 HOURS 09/14 completed Not Available Not Available Not Available escitalopra m 10 mg tablet TAKE 1 TABLET BY MOUTH EVERY DAY 01/24 completed Not Available Not Available Not Available escitalopra m 20 mg tablet TAKE 1 TABLET BY MOUTH EVERY DAY 2023 active Not Available Not Available Not Avai lable multivitami n 10/17 completed Not Available Not Available Not Available Vitals Date Recorded Body weight Body mass index (BMI) Body height Body temperature Heart rate Respiratory rate Oxygen saturation Oxygen saturation in Arterial blood by Pulse oximetry Pain severity - 0-10 verbal numeric rating [Score] - Reported Systolic blood pressure Diastolic blood pressure Provider Name and Address Organization Details Last Updated DateTime 3 50664.1 7 g 31.3 kg/m2 149.86 cm 96 [degF] 86 /min 16 /min 96 % 96 % 0 210 mm[Hg] 120 mm[Hg] Anna Marie Talamantes RN [facility] [employer] 3 14:46:15 Date Recorded Body height Body mass index (BMI) Body weight Body temperature Respiratory rate Pain severity - 0-10 verbal numeric rating [Score] - Reported Heart rate Systolic blood pressure Diastolic blood pressure Provider Name and Address Organization Details Last Updated DateTime 3 149.86 cm 31.1 kg/m2 67926.5 7 g 97 [degF] 16 /min 4 88 /min 170 mm[Hg] 100 mm[Hg] Anna Marie Talamantes RN [facility] [employer] 3 17:05:26 Date Recorded Body height Body mass index (BMI) Body weight Body temperature Heart rate Oxygen saturation Oxygen saturation in Arterial blood by Pulse oximetry Systolic blood pressure Diastolic blood pressure Provider Name and Address Organization Details Last Updated DateTime 3 149.86 cm 32.1 kg/m2 79770.5 4 g 97.7 [degF] 61 /min 97 % 97 % 171 mm[Hg] 96 mm[Hg] Kristi Ovalle MA [employer] 3 14:33:48 Date Recorded Body height Body mass index (BMI) Body weight Body temperature Pain severity - 0-10 verbal numeric rating [Score] - Reported Respiratory rate Heart rate Oxygen saturation Oxygen saturation in Arterial blood by Pulse oximetry Systolic blood pressure Diastolic blood pressure Provider Name and Address Organization Details Last Updated DateTime 149.86 cm 32.5 kg/m2 38918.0 7 g 96.4 [degF] 0 16 /min 53 /min 97 % 97 % 122 mm[Hg] 76 mm[Hg] Anna Marie Talamantes RN [facility] [employer] [facility] 14:15:55 Social History Question Answer Notes LastModified by Organization Details LastModified Time Tobacco Smoking Status Never Smoker Anna Marie Talamantes RN [facility], [facility] [employer] [facility] 01/24/2023 14:10:15 Do You Have An Advance Directive? No Information not available 10/17/2022 What Is Your Level Of Alcohol Consumption? Moderate Information not available 09/14/2022 Is Blood Transfusion Acceptable In An Emergency? Yes Information not available 01/24/2023 What Is Your Level Of Caffeine Consumption? Occasional Information not available 09/14/2022 What Is Your Code Status? Full Code Information not available 01/24/2023 In The 14 Days Before Symptom Onset, Have You Had Close Contact With A Laboratory-confi rmed COVID-19 While That Case Was Ill? No Information not available 01/24/2023 In The 14 Days Before Symptom Onset, Have You Had Close Contact With A Person Who Is Under Investigation For COVID-19 While That Person Was Ill? No Information not available 01/24/2023 Are You Currently Employed? Yes Information not available 01/24/2023 What Type Of Diet Are You Following? REGULAR Low Fat Information not available 01/24/2023 What Is The Highest Grade Or Level Of School You Have Completed Or The Highest Degree You Have Received? [id number] Information not available 01/24/2023 What Is Your Occupation? [employer] Information not available 01/24/2023 Have There Been Any Changes To Your Family Or Social Situation? Yes Passed On 09/23/22 Information not available 01/24/2023 Do You Use Insect Repellent Routinely? Yes Information not available 01/24/2023 Where Do You Live? SingleLevelHouse Information not available 01/24/2023 Do You Have A Medical Power Of Mosaic Technician? No Information not available 01/24/2023 How Many Children Do You Have? 1 Information not available 01/24/2023 Do You Have Any Pets? Yes Information not available 01/24/2023 What Is Your Relationship Status? Information not available 10/17/2022 Do You Use Your Seat Belt Or Car Seat Routinely? Yes Information not available 01/24/2023 Do You Have Smoke And Carbon Monoxide Detectors In Your Home? Yes Information not available 01/24/2023 Are There Any Smokers In Your House? Yes Information not available 01/24/2023 Do You Participate In Social Media? No Information not available 01/24/2023 Do You Feel Stressed (tense, Restless, Nervous, Or Anxious, Or Unable To Sleep At Night)? [id number] Information not available 01/24/2023 Do You Use Any Illicit Or Recreational Drugs? No Information not available 01/24/2023 Do You Use Sunscreen Routinely? Yes Information not available 01/24/2023 Have You Recently Traveled Abroad? No Information not available 01/24/2023 Do You Have Any Dietary Restrictions? Yes Information not available 01/24/2023 Sex: Unknown Functional Status Question Answer Note LastModified by Organization D etails LastModified Time What is your exercise level? None Information not available 10/17/2022 Mental Status None recorded. Family History Relationship Description Onset Age of this Age Resolved Age Notes LastModified by Organization Details LastModified Time Father Hypertensive disorder Not available 2022 14:46:51 Father Diabetes mellitus Not available 2022 14:47:05 Father Myocardial infarction Not available 09/14 14:47:30 Mother Hypertensive disorder Not available 2022 14:46:51 Mother Myocardial infarction Not available 09/14 14:59:29 Sister Myocardial infarction Not available 04/13 /2023 14:47:30 Medical History Condition Response OTHER # 1 Y ANXIETY DISORDER Y DEPRESSION (INCLUDING POST ) Y HAVE YOU BEEN HOSPITALIZED OR SEEN IN [facility] ER IN THE PAST YEAR ? Y Gynecological History Statement/Question Response Date of Last Pap Smear Current Control Method IUD Date of Last Colonoscopy Most Recent Mammogram Most Recent Bone Density Obstetrics History GPAL:G 0 P 0 0 0 0 Past Encounters Encounter ID Performer Location Encounter Start Date Encounter Closed Date Diagnosis/Indication Diagnosis SNOMED-CT Code Diagnosis ICD10 Code Diagnosis Note [id number] Anna Marie Ellis NP [address] [address] 09/14/2022 14:35:40 09/14/2022 15:38:36 Essential hypertension 30150138 I10 Losartan 50 mg po daily. HCTZ 12.5 mg po daily. Anemia screening 4800199 07 Z13.0 Diabetes m ellitus screening 280827654 Z13.1 Thyroid di sorder screening 000301384 Z13.29 Hyperlipid emia screening 854417888 Z13.220 Screening for disorder 647295233 Z13.9 Screening mammography of bilateral breasts 4309070115 69329 Z12.31 Mammogram ordered 09/14/22 History of bypass of stomach 848991176 Z98.84 2009. Has been on iron tablets. [id number] Anna Marie Ellis NP [address] [address] 10/17/2022 16:47:14 10/17/2022 18:05:51 Essential hypertension 94546837 I10 Losartan 50 mg po daily to 100 mg po daily on 10/17/22. HCTZ 12.5 mg po daily. Mixed anxi ety and depressive disorder 735219543 F41.8 lexapro 10 mg po daily. Hydroxyzin e 25 mg po tid prn. Gastroesop hageal reflux disease 007213480 K21.9 pantoprazo le 40 mg po daily. will be on for 2 mo.Pancrea titis. Acute pancreatitis 5323 K85.80 Amylase/li pase/cmp. If still raised, will refer back to Dr. Yu MATIAS at [facility]. Bereavement 26764456 Z63 .4 Mourning sudden of . Plans to call [employer] and if needed, I will give referral and FMLA. [id number] Anna Marie Ellis NP [address] [address] 11/29/2022 14:20:11 11/29/2022 15:05:09 Mixed anxiety and depressive disorder 242250574 F41.8 Lexapro 20 mg po daily (increased dose from 10 mg 11/29/22). Hydroxyzin e 25 mg po tid prn. Gastroesop hageal reflux disease 921589571 K21.9 no further issues. Not on meds as of 11/29/22Pan creatitis. Hyperlipidemia 24099938 E78.5 low fat diet advisedlab 09/2022 Essential hypertension 83148859 I10 Losartan 100 mg po daily. HCTZ 12.5 mg po daily.Colonia olol 50 mg po daily added on 11/29/22 Bereavement 13998567 Z63 .4 Mourning sudden of . Plans to call [employer] and if needed, I will give referral and FMLA. Spasm of back muscles 20 7535571 M62.830 methocarba mol 500 mg po bid prn. [id number] Anna Marie Ellis NP [address] [address] 01/24/2023 14:04:33 01/24/2023 14:45:33 Essential hypertension 74752246 I10 Losartan 100 mg po daily. HCTZ 12.5 mg po daily.Colonia olol 50 mg po daily added on 11/29/22 Mixed anxi ety and depressive disorder 731984395 F41.8 Lexapro 20 mg po daily (increased dose from 10 mg 11/29/22). Hydroxyzin e 25 mg po tid prn. Gastroesop hageal reflux disease 536970144 K21.9 no further issues. Not on meds as of 11/29/22Pan creatitis. Hyperlipidemia 65283161 E78.5 low fat diet advisedlab s 09/2022 Bereavement 06302914 Z63 .4 Mourning sudden of . Plans to call [employer] and if needed, I will give referral and FMLA. Spasm of back muscles 20 2078114 M62.830 methocarba mol 500 mg po bid prn. Bilateral tinnitus 32368 50425 102 H93.13 worked for the [employer] and likely having hearing loss. Health Concerns Section Related Observation LastModified by Organization Detai ls LastModified Time None Recorded Concern Status LastModified by Organization Details LastModified Time None Recorded Advance Directives Directive N: Payers Encounter Date Sequence Insurance Name Policy Number Policy Gambino Covered Member ID Gambino Member ID Guarantor Name 09/14/2022 1 [employer] - CHOICE (POS II) [id number] Leonard Hanson [id number] Rima Hanson 10/17/2022 1 [employer] - CHOICE (POS II) [id number] Leonard Hanson [id number] Rima Hanson 11/29/2022 1 [employer] - CHOICE (POS II) [id number] Leonard Hanson [id number] Rima Hanson 01/24/2023 1 [employer] - CHOICE (POS II) [id number] Leonard Hanson [id number] Rima Hanson Notes Date Note Type Note Provider Name and Address Organization Details Recorded Time 09/14/2022 text/html Here for new patient appt.BP has been high and needing checked out. HTN- has been up at urgent care. Was up at in May and Jul. Caffeine weaned off. Salt- moderate. 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 Hasn't been to [employer] since 2019. Mirena due to be out. No periods since having Mirena.[employer] vision, reading and distance glasses.[facility] dental. 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 Wood Type [employer]. Anna Marie Ellis, [employer] [address] [facility], [address], [place], [address], [facility] [employer] 09/14/2022 15:31:37 10/17/2022 text/html Here with STEPHANIE. Pancreatitis- was using large amount of vodka after recent passing of . First time ever with pancreatitis. Still having Pain in stomach.No nausea.BM- Stool softner daily. BM not hard.Drinking unsweet ice tea and water. HTN- Elevated. Home bp high, second is lower, and 3rd is lowest. Average yellow, and never green. Plans to call [employer] through work to see about counselor. Anna Marie Ellis NP [address], [address], [place], [address], [employer] [facility] [employer] 10/17/2022 18:00:17 11/29/2022 text/html Here for 1 mo check up. Has been back to work on [employer]. Lexapro helps, hydroxyzine helps. At least when at home. When on the track gets PTSD flashbacks and everyone is mentioning things to her about condolences. BP- Not controlled. Still in red zone most times when checking. Pain in back. Sharp, knot. using topical rubs. Icy hot. heating pad and xtra strength tylenol. 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 Interested in muscle relaxer if possible. Anna Marie Ellis NP [address], [address], [place], [address], [employer] [facility] [employer] 11/29/2022 15:04:47 01/24/2023 text/html Here for 2 mo check up. Anxiety- hit and miss. Some days much worse than other.. Last night was a bad night sleeping. Fell asleep but woke up around 2 am. Then could not fall back asleep until 6 am.Lexapro helps, hydroxyzine helps. At least when at home. When on the track gets PTSD flashbacks and everyone is mentioning things to her about condolences.Will be getting a puppy end of february. Has been on a weight list for 3 years. BP- No Headache, cp, sinus pressure.Tinnitus- ringing in both ears.ETOH- little to none. 1 glass wine here and there. Back pain- muscle relaxer prn. 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 Heating pad helps. Anna Marie Ellis NP [address], [place], [place], [id number], [employer] [facility] [employer] 01/24/2023 14:40:27 OBGyn Episode No OBEpisode recorded.
--- NOTE | 2024-09-27 18:36 | ADMGEN ---
This patient, Rima Hanson, was admitted to IMU Room 231-01. Patient/family oriented to hospital policies and general routines including ID bracelet, bed and alarms, visiting hours, pain management, procedures, bathroom and other care routines, personal items, smoking policy, room service/diet, and visiting hours. Information on how to activate the Rapid Response Team has been discussed. Patient/Family are encouraged to report perceived risks to care and to ask questions if they do not understand what they are told or what they should do. Pt admitted to the unit. Head to toe assessment completed and documented. Pt voiced no complaints or concerns at this time. Pt belongings in reach and call light. bed in locked position with alarm on. Family at bedside. Will continue to monitor. Lucretia Berumen RN
[2024-09-27 23:25] LABS: Iron 60 ug/dL (37-170)
[2024-09-27 23:28] LABS: Bilirubin Direct 0.1 mg/dL (0-0.3); Bilirubin Indirect 1.1 mg/dL (0-1.1); Lactate Dehydrogenase 249 U/L (120-246); Magnesium 2.1 mg/dL (1.6-2.3); Potassium 2.4 mmol/L (3.4-5.0)
[2024-09-27 23:34] LABS: Percent Iron Saturation 33 % (20-50)
[2024-09-27 23:44] LABS: Ammonia 104 umol/L (9-30)
[2024-09-28] VITALS (16 sets, daily range): BP systolic 102–116; BP diastolic 60–74; PULSE 74–99; RESP 16–20; TEMP 36.7–37.4; O2SAT 93–100
[2024-09-28 00:09] LABS: Amphetamine Screen Urine Negative (Negative); Barbiturate Screen Urine Negative (Negative); Benzodiazepines Screen Urine Negative (Negative); Cannabinoid Screen Urine Negative (Negative); Cocaine Screen Urine Negative (Negative); Methadone Screen Urine Negative (Negative); Opiate Screen Urine Negative (Negative); Phencyclidine Screen Urine Negative (Negative)
[2024-09-28] MEDS: traZODone HCL 50 MG TABLET PO ×2 (00:22→20:26)
[2024-09-28] MEDS: THIAMINE 500 MG/NS 100 ML 500 MG/100 ML BAG 200 MG IVPB (00:22)
[2024-09-28 00:32] LABS: Folic Acid 8.9 ng/mL (2.76->20)
[2024-09-28 04:24] LABS: Hematocrit 31.8 % (37.0-47.0); Hemoglobin 10.3 g/dL (12.0-15.0); Mean Corpuscular HGB Conc 32.4 g/dl (32-36); Mean Corpuscular Hemoglobin 34.3 pg (26-34); Mean Platelet Volume 9.8 fl (7.4-10.4); Platelet Count Result 164 k/mm3 (150-375); Red Cell Distribution Width 16.6 % (11.5-14.5)
[2024-09-28 05:42] LABS: Alanine Aminotransferase 30 U/L (6-35); Albumin Level 3.2 g/dL (3.5-5.1); Alkaline Phosphatase 183 U/L (38-126); Anion Gap 9 mmol/L (4-12); Aspartate Amino Transferase 191 U/L (14-36); Blood Urea Nitrogen 7 mg/dL (7-17); Calcium 8.5 mg/dL (8.4-10.2); Carbon Dioxide 16 mmol/L (22-30); Chloride 117 mmol/L (98-107); Estimated Glomerular Filt Rate > 60; Glucose 94 mg/dL (65-110); Potassium 3.4 mmol/L (3.4-5.0); Sodium 142 mmol/L (137-145)
--- NOTE | 2024-09-28 08:06 | P.PNIM_ITS ---
Progress Note: A&P Assessment and Plan (1) Cognitive changes: Code(s): R41.89 - Other symptoms and signs involving cognitive functions and awareness Status: Acute Assessment and Plan: * Progressive decline since the beginning of the year, triggered by passing of her last year * Heavy alcohol use and development of depression * Head CT: Linear increased density within the left basal ganglia which could represent either atherosclerotic calcification or thrombosis of a lenticulostriate artery. Dr. Lobato discussed these findings with Dr. Herrera at 12:47 PM. * Head/Neck CTA: Normal CTA head and neck. Percent stenosis per NASCET criteria is 0% * Vitamin B12 935, Vit B1 pending, Folate 8.9, pending vitamin D * Multivitamin supplementation * Fe 60, TIBC 181, % Sat 33 * EKG 09/27: bradycardia, normal QTC interval, normal NC interval. No ST segment elevations or depressions. * Neurology consult pending * Brain MRI pending * CIWA assessment q12hr (2) Hypokalemia: Code(s): E87.6 - Hypokalemia Status: Acute Assessment and Plan: * In ED: 1.7 * Given potassium chloride 80 mEq upon admission * 09/28 3.4 * Will continue to monitor and supplement as needed (3) Elevated LFTs: Code(s): R79.89 - Other specified abnormal findings of blood chemistry Status: Acute Assessment and Plan: * In ED: AST 217, ALT 31, Alk Phos 207, GGT 423, Total bilirubin 3.0 * Likely chronic alcohol consumption induced * Continue to trend (4) Depression with anxiety: Code(s): F41.8 - Other specified anxiety disorders Status: Acute Assessment and Plan: - Lexapro 20mg daily, Atarax 25mg daily, Trazodone 50mg - No SI/HI (5) Hypertension: Qualifiers: Hypertension type: primary hypertension Qualified Code(s): I10 - Essential (primary) hypertension Code(s): I10 - Essential (primary) hypertension Status: Acute Assessment and Plan: -Stable, no home medications Time Spent With Patient Time: Subjective Date/time seen: 09/28/24 08:06 Interval history: 54-year-old female with a 2 year history of alcohol abuse, hypertension, hyperlipidemia, pancreatitis, anxiety, and depression who presented to the emergency department after she was found to have low potassium. 09/28/2024 Patient sitting comfortably in bed at time examination. Denies any chest pain, shortness a breath, nausea/vomiting, headaches, dizziness, abdominal pain, or urinary/bowel complaints. Has been ambulatory to and from the bathroom with minimal assistance. Neurology pending at this time. Brain MRI pending. Vitamin B1 pending. Will start thiamine and folic acid, as well as lactulose. Will also add on Lipase, hepatic panel, vitamin D. Review of Systems Review of Systems: 12 systems were reviewed and are negativ e except for as per HPI. Exam Narrative: General: Thin, somewhat frail-appearing female female in the semi-Morales position in bed. Weight: 49 kg. BMI: 23.4. HEENT: Normocephalic, atraumatic. No nystagmus. PERRL, EOMI. Mild scleral icterus. Moist mucous membranes. Neck: Supple. No obvious carotid bruits or thyromegaly. Respiratory: Lungs are clear to auscultation bilaterally. Cardiovascular: Regular rate and rhythm with S1-S2. Murmur at the left sternal border. Gastrointestinal: Abdomen is soft, nontender, and nondistended with positive bowel sounds. Skin: Warm and dry. Extremities: No cyanosis, clubbing, or edema. Radial and pedal pulses intact. Neurological: Alert and oriented x4. Cranial nerves 2-12 are grossly intact. Speech is clear but her thought process is slow and at times she seems to be having difficulties coming up with the words that she wants to say. No facial asymmetry. No pronator drift. 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 Gait was not assessed. No tremors. No asterixis. Mild dysmetria with [id number]. Psychiatric: Pleasant and cooperative with appropriate mood. She seems to be in pretty good spirits. Also seems to be a bit forgetful. Objective Data Vital Signs Vital Signs: Vital Signs - 24 hr 09/27/24 11:15 09/27/24 11:16 09/27/24 12:56 Temperature 97.9 F Pulse Rate 73 62 60 Respiratory Rate 12 17 15 Blood Pressure 122/70 124/64 Pulse Oximetry 100 100 100 Oxygen Delivery Room Air 09/27/24 13:08 09/27/24 14:37 09/27/24 15:48 Temperature Pulse Rate 65 71 81 Respiratory Rate 13 18 12 Blood Pressure 105/55 L 109/65 Pulse Oximetry 100 100 100 Oxygen Delivery 09/27/24 16:45 09/27/24 17:21 09/27/24 18:00 Temperature Pulse Rate 72 72 68 Respiratory Rate 16 18 Blood Pressure 122/70 122/70 Pulse Oximetry 100 100 Oxygen Delivery 09/27/24 18:20 09/27/24 20:00 09/27/24 20:00 Temperature 98.8 F Pulse Rate 84 84 Respiratory Rate 16 Blood Pressure 110/64 Pulse Oximetry 100 Oxygen Delivery Room Air 09/27/24 21:47 09/28/24 00:00 09/28/24 00:00 Temperature 98.3 F Pulse Rate 74 78 77 Respiratory Rate 16 16 Blood Pressure 116/66 Pulse Oximetry 100 100 Oxygen Delivery Room Air 09/28/24 00:00 09/28/24 02:00 09/28/24 04:00 Temperature Pulse Rate 77 74 93 Respiratory Rate 16 Blood Pressure Pulse Oximetry 100 Oxygen Delivery Room Air 09/28/24 04:00 09/28/24 04:00 09/28/24 06:00 Temperature 98.4 F Pulse Rate 93 84 76 Respiratory Rate 16 Blood Pressure 108/60 Pulse Oximetry 100 Oxygen Delivery Intake/Output Intake/Output: Intake & Output 09/25/24 09/26/24 09/27/24 09/28/24 23:59 23:59 23:59 23:59 Intake Total 520 550 Output Total 1000 Balance 520 -450 Meds/Results Medications: Active Medications Generic Name Dose Route Start Last Admin Trade Name Freq PRN Reason Stop Dose Admin Acetaminophen 650 mg 09/27/24 23:27 Acetaminophen 325 Mg Tablet PO Q6H PRN Mild Pain (1-3) or Fever Enoxaparin Sodium 30 mg 09/28/24 09:00 Enoxaparin 30 Mg/0.3 Ml Syringe SUB-Q DAILY [facility] Escitalopram Oxalate 20 mg 09/28/24 09:00 Escitalopram Oxalate 10 Mg Tablet PO DAILY JENELLE Hydroxyzine HCl 25 mg 09/28/24 09:00 Hydroxyzine Hcl 25 Mg Tablet PO DAILY [facility] Ondansetron HCl 4 mg 09/27/24 16:59 Ondansetron Inj 4 Mg/2 Ml Vial IV PUSH Q4H PRN Nausea Trazodone HCl 50 mg 09/28/24 00:05 09/28/24 00:22 Trazodone Hcl 50 Mg Tablet PO 50 mg QHS JENELLE Administration Radiology Results: ITS Impressions Head CT 09/27/24 12:41 IMPRESSION: 1. Linear increased density within the left basal ganglia which could represent either atherosclerotic calcification or thrombosis of a lenticulostriate artery. Dr. Lobato discussed these findings with Dr. Herrera at 12:47 PM. Head/Neck CTA 09/27/24 15:42 IMPRESSION: 1. Normal CTA head and neck. Percent stenosis per NASCET criteria is 0%. Labs Labs: Laboratory Results - last 24 hr 09/27/24 09/27/24 09/27/24 11:54 14:27 23:08 WBC 13.2 H RBC 3.41 L Hgb 12.0 Hct 36.8 L MCV 107.9 H MCH 35.2 H MCHC 32.6 RDW 16.7 H Plt Count 178 MPV 10.2 Immature Gran % (Auto) 0.5 Neut % (Auto) 77.7 H Lymph % (Auto) 14.4 L [place] % (Auto) 5.9 Eos % (Auto) 0.7 Baso % (Auto) 0.8 Lymph # (Auto) 1.90 [place] # (Auto) 0.8 H Eos # (Auto) 0.1 Baso # (Auto) 0.1 Abs Immat Gran (auto) 0.07 H Absolute Neuts (auto) 10.3 H Absolute Nucleated RBC 0.000 Band Neutrophils % Not Reportable Nucleated RBC % 0.0 Atypical Lymphocytes Present Platelet Estimate Adequate Anisocytosis 1+ Macrocytosis 1+ Schistocytes None seen Sodium 138 Potassium < 2.0 L* 2.4 L* Chloride 107 Carbon Dioxide 20 L Anion Gap 11 BUN 8 Creatinine 0.49 L Estim Creat Clear Calc Not Reportable Estimated GFR > 60 Glucose 113 H Calcium 8.7 Magnesium 2.1 2.1 Iron TIBC % Saturation Ferritin Total Bilirubin 3.3 H Direct Bilirubin 0.1 Indirect Bilirubin 1.1 AST 214 H ALT 31 Alkaline Phosphatase 191 H Ammonia Lactate Dehydrogenase 249 H Total Protein 8.0 Albumin 3.6 Vitamin B12 935.0 H Folate 8.9 TSH (Reflex) Urine Opiates Screen Urine Methadone Screen Ur Barbiturates Screen Ur Phencyclidine Scrn Ur Amphetamine Screen U Benzodiazepines Scrn Urine Cocaine Screen U Cannabinoids Screen Ethyl Alcohol < 10 09/27/24 09/27/24 09/27/24 23:09 23:29 23:44 WBC RBC Hgb Hct MCV MCH MCHC RDW Plt Count MPV Immature Gran % (Auto) Neut % (Auto) Lymph % (Auto) [place] % (Auto) Eos % (Auto) Baso % (Auto) Lymph # (Auto) [place] # (Auto) Eos # (Auto) Baso # (Auto) Abs Immat Gran (auto) Absolute Neuts (auto) Absolute Nucleated RBC Band Neutrophils % Nucleated RBC % Atypical Lymphocytes Platelet Estimate Anisocytosis Macrocytosis Schistocytes Sodium Potassium Chloride Carbon Dioxide Anion Gap BUN Creatinine Estim Creat Clear Calc Estimated GFR Glucose Calcium Magnesium Iron 60 TIBC 181 L % Saturation 33 Ferritin 172.00 Total Bilirubin Direct Bilirubin Indirect Bilirubin AST ALT Alkaline Phosphatase Ammonia 104 H Lactate Dehydrogenase Total Protein Albumin Vitamin B12 Folate TSH (Reflex) 3.030 Urine Opiates Screen Negative Urine Methadone Screen Negative Ur Barbiturates Screen Negative Ur Phencyclidine Scrn Negative Ur Amphetamine Screen Negative U Benzodiazepines Scrn Negative Urine Cocaine Screen Negative U Cannabinoids Screen Negative Ethyl Alcohol 09/28/24 04:17 WBC 13.0 H RBC 3.00 L Hgb 10.3 L Hct 31.8 L MCV 106.0 H MCH 34.3 H MCHC 32.4 RDW 16.6 H Plt Count 164 MPV 9.8 Immature Gran % (Auto) Neut % (Auto) Lymph % (Auto) [place] % (Auto) Eos % (Auto) Baso % (Auto) Lymph # (Auto) [place] # (Auto) Eos # (Auto) Baso # (Auto) Abs Immat Gran (auto) Absolute Neuts (auto) Absolute Nucleated RBC Band Neutrophils % Nucleated RBC % Atypical Lymphocytes Platelet Estimate Anisocytosis Macrocytosis Schistocytes Sodium 142 Potassium 3.4 Chloride 117 H Carbon Dioxide 16 L Anion Gap 9 BUN 7 Creatinine 0.54 L Estim Creat Clear Calc Not Reportable Estimated GFR > 60 Glucose 94 Calcium 8.5 Magnesium Iron TIBC % Saturation Ferritin Total Bilirubin 3.0 H Direct Bilirubin Indirect Bilirubin AST 191 H ALT 30 Alkaline Phosphatase 183 H Ammonia Lactate Dehydrogenase Total Protein 7.0 Albumin 3.2 L Vitamin B12 Folate TSH (Reflex) Urine Opiates Screen Urine Methadone Screen Ur Barbiturates Screen Ur Phencyclidine Scrn Ur Amphetamine Screen U Benzodiazepines Scrn Urine Cocaine Screen U Cannabinoids Screen Ethyl Alcohol Quality VTE Prophylaxis VTE prophylaxis: pharmacologic ordered
[2024-09-28] MEDS: ESCITALOPRAM OXALATE 10 MG TABLET 20 MG PO (08:33)
[2024-09-28] MEDS: ENOXAPARIN 30 MG/0.3 ML SYRINGE SUB-Q (08:34)
[2024-09-28] MEDS: hydrOXYzine HCL 25 MG TABLET PO (08:34)
[2024-09-28 12:13] LABS: Anion Gap 12 mmol/L (4-12); Blood Urea Nitrogen 6 mg/dL (7-17); Calcium 8.6 mg/dL (8.4-10.2); Carbon Dioxide 14 mmol/L (22-30); Chloride 114 mmol/L (98-107); Estimated Glomerular Filt Rate > 60; Glucose 176 mg/dL (65-110); Potassium 3.2 mmol/L (3.4-5.0); Sodium 140 mmol/L (137-145)
[2024-09-28 13:03] LABS: GGT 423 U/L (3-70)
[2024-09-28] MEDS: FOLIC ACID 0.4 MG TABLET PO (15:27)
[2024-09-28] MEDS: LACTULOSE 20 GM/30 ML UDC PO ×2 (15:27→18:24)
[2024-09-28] MEDS: THIAMINE HCL 100 MG TABLET PO (15:28)
[2024-09-28] MEDS: POTASSIUM CHLORIDE 20 MEQ PACKET (FOR LIQUID) 40 MEQ PO (16:10)
[2024-09-28 18:12] LABS: Alanine Aminotransferase 32 U/L (6-35); Albumin Level 3.4 g/dL (3.5-5.1); Alkaline Phosphatase 216 U/L (38-126); Aspartate Amino Transferase 184 U/L (14-36); Bilirubin,Total 2.8 mg/dL (0.2-1.3); Lipase 55 U/L (23-300)
[2024-09-28 18:27] LABS: Vitamin D 25 Hydroxy 42.8 ng/mL
[2024-09-29] VITALS (12 sets, daily range): BP systolic 99–119; BP diastolic 59–72; PULSE 79–100; RESP 12–16; TEMP 36.5–37; O2SAT 96–100; BMI 23.6
[2024-09-29 04:52] LABS: Basophils Absolute Auto 0.1 K/mm3 (0.0-0.1); Basophils Percent Auto 0.8 % (0.2-1.2); Eosinophils Absolute Auto 0.2 K/mm3 (0-0.3); Eosinophils Percent Auto 1.7 % (0-4.4); Hematocrit 29.2 % (37.0-47.0); Hemoglobin 9.4 g/dL (12.0-15.0); Immature Granulocyte Absolute 0.05 K/mm3 (0.00-0.031); Immature Granulocyte Percent A 0.4 % (0-0.5); Lymphocytes Absolute Auto 2.28 K/mm3 (0.9-3.2); Lymphocytes Percent Auto 19.2 % (18.3-44.2); Mean Corpuscular HGB Conc 32.2 g/dl (32-36); Mean Corpuscular Hemoglobin 34.7 pg (26-34); Mean Corpuscular Volume 107.7 fl (80-100); Mean Platelet Volume 9.8 fl (7.4-10.4); Neutrophils Absolute Auto 8.3 K/mm3 (1.3-6.7); Neutrophils Percent Auto 69.9 % (45.5-73.1); Platelet Count Result 138 k/mm3 (150-375); Red Blood Count 2.71 M/mm3 (4.2-5.4); Red Cell Distribution Width 16.8 % (11.5-14.5); White Blood Count 11.9 K/mm3 (4.5-10.0)
[2024-09-29 04:59] LABS: Ammonia 13 umol/L (9-30)
[2024-09-29 05:03] LABS: Alanine Aminotransferase 26 U/L (6-35); Albumin Level 2.9 g/dL (3.5-5.1); Alkaline Phosphatase 186 U/L (38-126); Anion Gap 12 mmol/L (4-12); Aspartate Amino Transferase 141 U/L (14-36); Bilirubin,Total 2.1 mg/dL (0.2-1.3); Blood Urea Nitrogen 3 mg/dL (7-17); Calcium 8.2 mg/dL (8.4-10.2); Carbon Dioxide 15 mmol/L (22-30); Chloride 112 mmol/L (98-107); Estimated Glomerular Filt Rate > 60; Glucose 106 mg/dL (65-110); Potassium 2.9 mmol/L (3.4-5.0); Sodium 139 mmol/L (137-145)
[2024-09-29 05:23] LABS: Anisocytosis 1+; Macrocytosis 1+ (NORMAL); Platelet Estimate Slightly Decreased (Adequate); Schistocytes Rare
[2024-09-29 06:23] LABS: Magnesium 1.9 mg/dL (1.6-2.3); Phosphorus 2.1 mg/dL (2.5-4.5)
[2024-09-29] MEDS: POTASSIUM CHLORIDE 20 MEQ ER TABLET 40 MEQ PO (06:25)
--- NOTE | 2024-09-29 07:51 | P.PNIM_ITS ---
Progress Note: A&P Assessment and Plan (1) Cognitive changes: Code(s): R41.89 - Other symptoms and signs involving cognitive functions and awareness Status: Acute Assessment and Plan: * Progressive decline since the beginning of the year, triggered by passing of her last year * Heavy alcohol use and development of depression * Head CT: Linear increased density within the left basal ganglia which could represent either atherosclerotic calcification or thrombosis of a lenticulostriate artery. Dr. Lobato discussed these findings with Dr. Herrera at 12:47 PM. * Head/Neck CTA: Normal CTA head and neck. Percent stenosis per NASCET criteria is 0% * Vitamin B12 935, Vit B1 pending, Folate 8.9, Vit D wnl * Multivitamin supplementation * Fe 60, TIBC 181, % Sat 33 * EKG 09/27: bradycardia, normal QTC interval, normal IA interval. No ST segment elevations or depressions. * Neurology consult pending * Brain MRI pending * CIWA assessment q12hr (2) Hypokalemia: Code(s): E87.6 - Hypokalemia Status: Acute Assessment and Plan: * In ED: 1.7 * Given potassium chloride 80 mEq upon admission * 09/29 3.2 * Will supplement 40 mEq and continue to monitor (3) Elevated LFTs: Code(s): R79.89 - Other specified abnormal findings of blood chemistry Status: Acute Assessment and Plan: * In ED: AST 217, ALT 31, Alk Phos 207, GGT 423, Total bilirubin 3.0 * Likely chronic alcohol consumption induced * Continue to trend (4) Depression with anxiety: Code(s): F41.8 - Other specified anxiety disorders Status: Acute Assessment and Plan: - Lexapro 20mg daily, Atarax 25mg daily, Trazodone 50mg - No SI/HI (5) Hypertension: Qualifiers: Hypertension type: primary hypertension Qualified Code(s): I10 - Essential (primary) hypertension Code(s): I10 - Essential (primary) hypertension Status: Acute Assessment and Plan: -Stable, no home medications Time Spent With Patient Time: Subjective Date/time seen: 09/29/24 07:51 Interval history: 54-year-old female with a 2 year history of alcohol abuse, hypertension, hyperlipidemia, pancreatitis, anxiety, and depression who presented to the emergency department after she was found to have low potassium. 09/29/2024 Patient sitting comfortably in bed at time of exam. Doing much better today, continues to deny any chest shortness shortness of breath, nausea vomiting, dizziness, headaches, difficulty ambulating, or abdominal pain. Able to work with PT/OT with minimal difficulties. Neurological exam continues to be benign. Neurology consult still pending at this time. Brain MRI normal. Will initiate transfer to [address] [place] [address]/surg and d/c lactulose. Potassium still low at 2.9, continue to supplement. Review of Systems Review of Systems: 12 systems were reviewed and are negativ e except for as per HPI. Exam Narrative: General: Thin, somewhat frail-appearing female female in the semi-Morales position in bed. Weight: 49 kg. BMI: 23.4. HEENT: Normocephalic, atraumatic. No nystagmus. PERRL, EOMI. Mild scleral icterus. Moist mucous membranes. Neck: Supple. No obvious carotid bruits or thyromegaly. Respiratory: Lungs are clear to auscultation bilaterally. Cardiovascular: Regular rate and rhythm with S1-S2. Murmur at the left sternal border. Gastrointestinal: Abdomen is soft, nontender, and nondistended with positive bowel sounds. Skin: Warm and dry. Extremities: No cyanosis, clubbing, or edema. Radial and pedal pulses intact. Neurological: Alert and oriented x4. Cranial nerves 2-12 are grossly intact. Speech is clear but her thought process is slow and at times she seems to be having difficulties coming up with the words that she wants to say. No facial asymmetry. No pronator drift. 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 Gait was not assessed. No tremors. No asterixis. Mild dysmetria with [id number]. Psychiatric: Pleasant and cooperative with appropriate mood. She seems to be in pretty good spirits. Also seems to be a bit forgetful. Objective Data Vital Signs Vital Signs: Vital Signs - 24 hr 09/28/24 08:00 09/28/24 08:00 09/28/24 08:00 Temperature 98.1 F Pulse Rate 90 88 Pulse Rate [Monitor] Respiratory Rate 20 Blood Pressure 109/74 Pulse Oximetry 100 100 Oxygen Delivery Room Air 09/28/24 09:22 09/28/24 10:00 09/28/24 11:56 Temperature 98.2 F Pulse Rate 88 82 Pulse Rate [Monitor] Respiratory Rate 16 Blood Pressure 107/69 Pulse Oximetry 100 100 Oxygen Delivery Room Air 09/28/24 12:00 09/28/24 12:00 09/28/24 14:00 Temperature Pulse Rate 90 99 Pulse Rate [Monitor] Respiratory Rate Blood Pressure Pulse Oximetry 100 Oxygen Delivery Room Air 09/28/24 15:53 09/28/24 16:00 09/28/24 16:00 Temperature 98.1 F Pulse Rate 81 92 Pulse Rate [Monitor] Respiratory Rate 16 Blood Pressure 108/63 Pulse Oximetry 100 100 Oxygen Delivery Room Air 09/28/24 18:00 09/28/24 20:00 09/28/24 20:00 Temperature 98.0 F Pulse Rate 86 80 Pulse Rate [Monitor] 87 Respiratory Rate 20 Blood Pressure 107/69 Pulse Oximetry 93 Oxygen Delivery 09/28/24 20:00 09/28/24 20:00 09/28/24 22:00 Temperature Pulse Rate 87 85 Pulse Rate [Monitor] Respiratory Rate Blood Pressure Pulse Oximetry 100 Oxygen Delivery Room Air 09/28/24 23:59 09/29/24 00:00 09/29/24 00:00 Temperature 99.3 F Pulse Rate 88 96 Pulse Rate [Monitor] Respiratory Rate 16 Blood Pressure 102/61 Pulse Oximetry 100 Oxygen Delivery Room Air 09/29/24 02:00 09/29/24 04:00 09/29/24 04:00 Temperature 98.6 F Pulse Rate 88 89 Pulse Rate [Monitor] Respiratory Rate 16 Blood Pressure 105/59 L Pulse Oximetry 98 Oxygen Delivery Room Air 09/29/24 04:00 09/29/24 06:00 Temperature Pulse Rate 84 79 Pulse Rate [Monitor] Respiratory Rate Blood Pressure Pulse Oximetry Oxygen Delivery Intake/Output Intake/Output: Intake & Output 09/26/24 09/27/24 09/28/24 09/29/24 23:59 23:59 23:59 23:59 Intake Total 520 2490 680 Output Total 1100 Balance 520 1390 680 Meds/Results Medications: Active Medications Generic Name Dose Route Start Last Admin Trade Name Freq PRN Reason Stop Dose Admin Acetaminophen 650 mg 09/27/24 23:27 Acetaminophen 325 Mg Tablet PO Q6H PRN Mild Pain (1-3) or Fever Enoxaparin Sodium 30 mg 09/28/24 09:00 09/28/24 08:34 Enoxaparin 30 Mg/0.3 Ml Syringe SUB-Q 30 mg DAILY JENELLE Administration Escitalopram Oxalate 20 mg 09/28/24 09:00 09/28/24 08:33 Escitalopram Oxalate 10 Mg Tablet PO 20 mg DAILY JENELLE Administration Folic Acid 0.4 mg 09/28/24 12:50 09/28/24 15:27 Folic Acid 0.4 Mg Tablet PO 0.4 mg DAILY JENELLE Administration Hydroxyzine HCl 25 mg 09/28/24 09:00 09/28/24 08:34 Hydroxyzine Hcl 25 Mg Tablet PO 25 mg DAILY JENELLE Administration Lactulose 20 gm 09/28/24 13:00 09/28/24 18:24 Lactulose 20 Gm/30 Ml Udc PO 20 gm TID JENELLE Administration Multivitamins/Calcium 1 tablet 09/29/24 09:00 Therapeutic Multivitamins/Minerals Tab (*Bkc) PO QAM [facility] Ondansetron HCl 4 mg 09/27/24 16:59 Ondansetron Inj 4 Mg/2 Ml Vial IV PUSH Q4H PRN Nausea Potassium Chloride 40 meq 09/29/24 08:00 Potassium Chloride 20 Meq Er Tablet PO 09/29/24 08:01 ONCE ONE Potassium Chloride 40 meq 09/29/24 09:00 Potassium Chloride 20 Meq Packet (For Liquid) PO DAILY [facility] Thiamine HCl 100 mg 09/28/24 12:50 09/28/24 15:28 Thiamine Hcl 100 Mg Tablet PO 10/02/24 12:49 100 mg QAM [facility] Administration Trazodone HCl 50 mg 09/28/24 00:05 09/28/24 20:26 Trazodone Hcl 50 Mg Tablet PO 50 mg QHS JENELLE Administration Radiology Results: ITS Impressions Head CT 09/27/24 12:41 IMPRESSION: 1. Linear increased density within the left basal ganglia which could represent either atherosclerotic calcification or thrombosis of a lenticulostriate artery. Dr. Lobato discussed these findings with Dr. Herrera at 12:47 PM. Head/Neck CTA 09/27/24 15:42 IMPRESSION: 1. Normal CTA head and neck. Percent stenosis per NASCET criteria is 0%. Labs Labs: Laboratory Results - last 24 hr 09/27/24 09/28/24 09/28/24 23:09 11:58 17:54 WBC RBC Hgb Hct MCV MCH MCHC RDW Plt Count MPV Immature Gran % (Auto) Neut % (Auto) Lymph % (Auto) [place] % (Auto) Eos % (Auto) Baso % (Auto) Lymph # (Auto) [place] # (Auto) Eos # (Auto) Baso # (Auto) Abs Immat Gran (auto) Absolute Neuts (auto) Absolute Nucleated RBC Band Neutrophils % Nucleated RBC % Platelet Estimate Anisocytosis Macrocytosis Schistocytes Sodium 140 Potassium 3.2 L Chloride 114 H Carbon Dioxide 14 L Anion Gap 12 BUN 6 L Creatinine 0.55 L Estim Creat Clear Calc Not Reportable Estimated GFR > 60 Glucose 176 H Calcium 8.6 Phosphorus Magnesium Total Bilirubin 2.8 H Direct Bilirubin 0.0 GGT 423 H AST 184 H ALT 32 Alkaline Phosphatase 216 H Ammonia Total Protein 7.0 Albumin 3.4 L Lipase 55 Vitamin B1 Cancelled Vitamin D 25-Hydroxy 42.8 09/29/24 04:37 WBC 11.9 H RBC 2.71 L Hgb 9.4 L Hct 29.2 L MCV 107.7 H MCH 34.7 H MCHC 32.2 RDW 16.8 H Plt Count 138 L MPV 9.8 Immature Gran % (Auto) 0.4 Neut % (Auto) 69.9 Lymph % (Auto) 19.2 [place] % (Auto) 8.0 Eos % (Auto) 1.7 Baso % (Auto) 0.8 Lymph # (Auto) 2.28 [place] # (Auto) 1.0 H Eos # (Auto) 0.2 Baso # (Auto) 0.1 Abs Immat Gran (auto) 0.05 H Absolute Neuts (auto) 8.3 H Absolute Nucleated RBC 0.000 Band Neutrophils % Not Reportable Nucleated RBC % 0.0 Platelet Estimate Slightly decreased Anisocytosis 1+ Macrocytosis 1+ Schistocytes Rare Sodium 139 Potassium 2.9 L Chloride 112 H Carbon Dioxide 15 L Anion Gap 12 BUN 3 L Creatinine 0.51 L Estim Creat Clear Calc Not Reportable Estimated GFR > 60 Glucose 106 Calcium 8.2 L Phosphorus 2.1 L Magnesium 1.9 Total Bilirubin 2.1 H Direct Bilirubin GGT AST 141 H ALT 26 Alkaline Phosphatase 186 H Ammonia 13 Total Protein 6.0 L Albumin 2.9 L Lipase Vitamin B1 Vitamin D 25-Hydroxy Quality VTE Prophylaxis VTE prophylaxis: pharmacologic ordered
--- NOTE | 2024-09-29 08:02 | PC.NURSE ---
Notified Luke of patients Mag and Phos this AM per provider communication order from overnight. Provider to recheck labs later today and received order to give potassium powder and not PO potassium. Order read back and verified.
[2024-09-29] MEDS: FOLIC ACID 0.4 MG TABLET PO (09:18)
[2024-09-29] MEDS: THIAMINE HCL 100 MG TABLET PO (09:18)
[2024-09-29] MEDS: LACTULOSE 20 GM/30 ML UDC PO (09:18)
[2024-09-29] MEDS: hydrOXYzine HCL 25 MG TABLET PO (09:18)
[2024-09-29] MEDS: POTASSIUM CHLORIDE 20 MEQ PACKET (FOR LIQUID) 40 MEQ PO (09:18)
[2024-09-29] MEDS: THERAPEUTIC MULTIVITAMINS/MINERALS TAB (*BKC) 1 TABLET PO (09:18)
[2024-09-29] MEDS: ESCITALOPRAM OXALATE 10 MG TABLET 20 MG PO (09:18)
[2024-09-29] MEDS: ENOXAPARIN 30 MG/0.3 ML SYRINGE SUB-Q (09:18)
[2024-09-29 13:47] LABS: Potassium 3.8 mmol/L (3.4-5.0)
[2024-09-29 13:56] LABS: Anion Gap 10 mmol/L (4-12); Carbon Dioxide 13 mmol/L (22-30); Chloride 113 mmol/L (98-107); Estimated Glomerular Filt Rate > 60; Glucose 143 mg/dL (65-110); Potassium 3.8 mmol/L (3.4-5.0); Sodium 136 mmol/L (137-145)
[2024-09-29 14:15] LABS: Blood Urea Nitrogen < 2 mg/dL (7-17)
--- NOTE | 2024-09-29 16:59 | P.CONNEU_ITS ---
Assessment and Plan Assessment and plan (1) Depression with anxiety: Code(s): F41.8 - Other specified anxiety disorders Status: Acute (2) Alcohol use disorder: Code(s): F10.90 - Alcohol use, unspecified, uncomplicated Status: Acute (3) Abnormal LFTs: Code(s): R79.89 - Other specified abnormal findings of blood chemistry Status: Acute Plan on neurologic examination I did not find any focal deficit. She was able to ambulate for short distance in the room without any problem. However she does face numerous other medical problems and I noted that her hemoglobin is 9.4 and liver enzymes are somewhat higher. Vitamin B1 level is pending. Vitamin B12 level was normal. Vitamin-D and folate were normal. TSH was also normal. CT angiogram and MRI were normal. I have reviewed the MRI and feel that this is within acceptable normal range. Please let me know is if the any further questions from neurologic point of view. Consult date: 09/29/24 HPI: Rima Hanson is a 54 year old female Being evaluated for generalized weakness and difficulty in walking and balance. The patient has a history of drinking alcohol for last 2 years and she also has lost a lot of weight. Her last year. Her [id number] was present at the time of this evaluation and indeed very supportive. I noted that she had a CT scan of the brain done at the time of the admission which did not show any significant abnormalities except for some calcification in the basal ganglia thought to be that of an artery. CT angiogram of the head and neck did not show any abnormality. Patient has had intermittent confusion. MRI of the brain was performed which did not show any significant abnormalities. Her AST and alkaline phosphatase were high which were thought to be due to alcohol. Patient has been going to bathroom by herself and seems she doing fairly well. She does her daughter who lives in [place] but does not keep close contact with her. Review of Systems 2 Review of Systems: All systems reviewed & are unremarkable except as noted in HPI and below PMFSH Past Medical History Medical History Depression Hypertension Anxiety Alcohol abuse Surgical History Surgical History History of section History of laparoscopic cholecystectomy History of carpal tunnel release History of gastric bypass Family History Family History Father Diabetes mellitus Hypertension Heart disease Mother Asthma Diabetes mellitus Hypertension Heart disease Sibling Hypertension Depression Heart disease Social History Social History Social History: Surrogate medical decision maker: Alayna Torres ([id number]) or Delores Pian (daughter). Code status: Full code. Smoking status: Never smoker Second hand tobacco smoke exposure: No Alcohol intake: former Drinks per week: 12 Substance use: never Substance use type: does not use Do You Feel Safe in your Home?: Yes Lack of Transportation: No Lack of Food: Never True Current Housing: I Have Housing Concerned About Future Housing: No Difficulty Paying Gas/Electric Bills: No Difficulty Paying for Meds: No Currently Unemployed: No Education: Associate Degree Difficulty w/ Childcare or Family Care: No Living arrangements: with family Additional living arrangements comments: . Currently living with her aunt. Occupation/Education: occupation Additional occupation/education comments: [employer] for [employer]. Spiritual care concerns: No Agree to blood products: Yes Meds Home Medications and Allergies Home Medications ?Medication ?Instructions ?Recorded ?Confirmed ?Type escitalopram oxalate 20 mg tablet 20 mg PO DAILY #90 tabs 06/13/24 09/27/24 Rx trazodone 50 mg tablet 50 mg PO QHS #90 tabs 09/02/24 09/27/24 Rx hydroxyzine HCl 25 mg tablet 25 mg PO DAILY 09/26/24 09/27/24 History Allergies Allergy/AdvReac Type Severity Reaction Status Date / Time No Known Allergies Allergy Verified 09/27/24 18:03 Vital Signs Vital Signs - 24 hr 09/28/24 18:00 09/28/24 20:00 09/28/24 20:00 Temperature 98.0 F Pulse Rate 86 80 Pulse Rate [Monitor] 87 Respiratory Rate 20 Blood Pressure 107/69 Pulse Oximetry 93 Oxygen Delivery 09/28/24 20:00 09/28/24 20:00 09/28/24 22:00 Temperature Pulse Rate 87 85 Pulse Rate [Monitor] Respiratory Rate Blood Pressure Pulse Oximetry 100 Oxygen Delivery Room Air 09/28/24 23:59 09/29/24 00:00 09/29/24 00:00 Temperature 99.3 F Pulse Rate 88 96 Pulse Rate [Monitor] Respiratory Rate 16 Blood Pressure 102/61 Pulse Oximetry 100 Oxygen Delivery Room Air 09/29/24 02:00 09/29/24 04:00 09/29/24 04:00 Temperature 98.6 F Pulse Rate 88 89 Pulse Rate [Monitor] Respiratory Rate 16 Blood Pressure 105/59 L Pulse Oximetry 98 Oxygen Delivery Room Air 09/29/24 04:00 09/29/24 06:00 09/29/24 07:32 Temperature 98.3 F Pulse Rate 84 79 82 Pulse Rate [Monitor] Respiratory Rate 16 Blood Pressure 118/71 Pulse Oximetry 100 Oxygen Delivery 09/29/24 08:00 09/29/24 08:00 09/29/24 08:00 Temperature Pulse Rate 100 Pulse Rate [Monitor] 85 Respiratory Rate Blood Pressure Pulse Oximetry Oxygen Delivery Room Air 09/29/24 09:46 09/29/24 10:00 09/29/24 10:10 Temperature Pulse Rate 79 Pulse Rate [Monitor] Respiratory Rate Blood Pressure Pulse Oximetry Oxygen Delivery Room Air Room Air 09/29/24 11:44 09/29/24 15:58 Temperature 97.7 F 98.2 F Pulse Rate 81 85 Pulse Rate [Monitor] Respiratory Rate 12 16 Blood Pressure 111/67 99/59 L Pulse Oximetry 96 100 Oxygen Delivery Exam 2 Const: General: cooperative, well developed and alert O rientation/consciousness: patient oriented x3 Other: Patient appears emaciated HENMT: Head: atraumatic Mouth: Yes oropharynx normal Eyes: Alignment and Position: position normal Pupils: Equal, round and reactive pupils present EOM: EOMs intact bilaterally Neck: Neck: supple Resp: Effort & Inspection: normal respiratory effort Neuro: General: patient oriented x3 Cranial nerves: Yes CN's II-XII intact bilaterally, Yes facial sensation intact/muscles of mastication intact, Yes Equal, round and reactive pupils present, Yes facial symmetry and Yes Midline tongue present Cognition (Neuro): normal cognition Speech: normal speech Gait exam (Neuro): Normal gait present Motor exam (neuro): 5/5 motor strength present throughout Sensory Exam: normal sensation Coordination: f [id number] test normal and Normal rapid alternating movements of the distal upper extremity present (Neuro) Results Labs 09/29/24 04:37 09/29/24 13:22 Labs: Short CBC 09/29/24 Range/Units 04:37 WBC 11.9 H (4.5-10.0) K/mm3 Hgb 9.4 L (12.0-15.0) g/dL Hct 29.2 L (37.0-47.0) % Plt Count 138 L (150-375) k/mm3 BMP 09/29/24 09/29/24 09/29/24 04:37 13:18 13:22 Sodium 139 136 L Potassium 2.9 L 3.8 3.8 Chloride 112 H 113 H Carbon Dioxide 15 L 13 L BUN 3 L < 2 L Creatinine 0.51 L 0.48 L Glucose 106 143 H Calcium 8.2 L 8.0 L Liver Function 09/28/24 09/29/24 Range/Units 17:54 04:37 Total Bilirubin 2.8 H 2.1 H (0.2-1.3) mg/dL Direct Bilirubin 0.0 (0-0.3) mg/dL AST 184 H 141 H (14-36) U/L ALT 32 26 (6-35) U/L Alkaline Phosphatase 216 H 186 H (38-126) U/L Albumin 3.4 L 2.9 L (3.5-5.1) g/dL
[2024-09-29] MEDS: traZODone HCL 50 MG TABLET PO (20:32)
[2024-09-30 04:00] VITALS: BP 97/58; PULSE 93; RESP 16; TEMP 37.1; O2SAT 100
[2024-09-30 04:33] LABS: Basophils Absolute Auto 0.1 K/mm3 (0.0-0.1); Basophils Percent Auto 0.7 % (0.2-1.2); Eosinophils Absolute Auto 0.2 K/mm3 (0-0.3); Eosinophils Percent Auto 1.8 % (0-4.4); Hematocrit 30.6 % (37.0-47.0); Hemoglobin 9.7 g/dL (12.0-15.0); Immature Granulocyte Absolute 0.06 K/mm3 (0.00-0.031); Immature Granulocyte Percent A 0.5 % (0-0.5); Lymphocytes Absolute Auto 1.87 K/mm3 (0.9-3.2); Lymphocytes Percent Auto 14.6 % (18.3-44.2); Mean Corpuscular HGB Conc 31.7 g/dl (32-36); Mean Corpuscular Hemoglobin 34.2 pg (26-34); Mean Corpuscular Volume 107.7 fl (80-100); Mean Platelet Volume 9.7 fl (7.4-10.4); Monocytes Absolute Auto 0.9 K/mm3 (0.1-0.6); Monocytes Percent Auto 7.3 % (2.6-8.5); Neutrophils Absolute Auto 9.6 K/mm3 (1.3-6.7); Neutrophils Percent Auto 75.1 % (45.5-73.1); Platelet Count Result 146 k/mm3 (150-375); Red Blood Count 2.84 M/mm3 (4.2-5.4); Red Cell Distribution Width 16.2 % (11.5-14.5); White Blood Count 12.8 K/mm3 (4.5-10.0)
[2024-09-30 04:48] LABS: Haptoglobin 73 mg/dL (43-212)
[2024-09-30 04:53] LABS: Alanine Aminotransferase 25 U/L (6-35); Albumin Level 2.8 g/dL (3.5-5.1); Alkaline Phosphatase 180 U/L (38-126); Anion Gap 11 mmol/L (4-12); Aspartate Amino Transferase 109 U/L (14-36); Bilirubin,Total 2.1 mg/dL (0.2-1.3); Calcium 7.9 mg/dL (8.4-10.2); Carbon Dioxide 16 mmol/L (22-30); Chloride 109 mmol/L (98-107); Estimated Glomerular Filt Rate > 60; Glucose 127 mg/dL (65-110); Potassium 3.5 mmol/L (3.4-5.0); Sodium 136 mmol/L (137-145)
[2024-09-30 04:59] LABS: Anisocytosis 1+; Platelet Estimate Slightly Decreased (Adequate)
[2024-09-30 05:00] LABS: Macrocytosis 1+ (NORMAL); Schistocytes None Seen
[2024-09-30 05:04] LABS: Ammonia 54 umol/L (9-30)
[2024-09-30 05:08] LABS: Blood Urea Nitrogen < 2 mg/dL (7-17)
[2024-09-30 08:00] VITALS: BP 107/59; PULSE 80; RESP 20; TEMP 36.8; O2SAT 100
--- NOTE | 2024-09-30 08:41 | P.CDI_ITS ---
CDI Query Clarification Request BMI: 24.9 Nutritional Diagnostic Statement: Please refer to the comprehensive nutrition assessment for further information. If you agree with diagnosis of Severe protein calorie malnutrition related to chronic alcohol abuse, loss of appetite as evidenced by weight loss 6%/1 month; 19%/9 months; intakes<75% needs >1 month; moderate muscle wasting and fat loss. Please specify severity if known: * Mild * Moderate * Severe * Other/Unknown <Kanchan Lamb RN - Last Filed: 09/30/24 08:42> Clarified Diagnosis Clarified Diagnosis: Agree with Severe protein calorie malnutrition related to chronic alcohol abuse, loss of appetite assessment, appreciate recommendations <Luke Barnhart PA-C - Last Filed: 09/30/24 13:02>
[2024-09-30] MEDS: ENOXAPARIN 40 MG/0.4 ML SYRINGE SUB-Q (08:46)
[2024-09-30] MEDS: ESCITALOPRAM OXALATE 10 MG TABLET 20 MG PO (08:47)
[2024-09-30] MEDS: hydrOXYzine HCL 25 MG TABLET PO (08:47)
[2024-09-30] MEDS: THERAPEUTIC MULTIVITAMINS/MINERALS TAB (*BKC) 1 TABLET PO (08:47)
[2024-09-30] MEDS: FOLIC ACID 0.4 MG TABLET PO (08:47)
[2024-09-30] MEDS: THIAMINE HCL 100 MG TABLET PO (08:47)
[2024-09-30] MEDS: POTASSIUM CHLORIDE 20 MEQ PACKET (FOR LIQUID) 40 MEQ PO (08:47)
[2024-09-30 12:07] VITALS: BP 105/64; PULSE 79; RESP 16; TEMP 36.8; O2SAT 100
--- NOTE | 2024-09-30 12:57 | P.DS_ITS ---
DS: Admitting Diagnosis Discharge Date 09/30/2024 Admitting Diagnosis Cognitive changes Hypokalemia Elevated LFT DS: Discharge Diagnosis Discharge Diagnosis (1) Cognitive changes: Code(s): R41.89 - Other symptoms and signs involving cognitive functions and awareness Status: Acute (2) Hypokalemia: Code(s): E87.6 - Hypokalemia Status: Acute (3) Elevated LFTs: Code(s): R79.89 - Other specified abnormal findings of blood chemistry Status: Acute (4) Depression with anxiety: Code(s): F41.8 - Other specified anxiety disorders Status: Acute (5) Hypertension: Qualifiers: Hypertension type: primary hypertension Qualified Code(s): I10 - Essential (primary) hypertension Code(s): I10 - Essential (primary) hypertension Status: Acute (6) Severe protein-calorie malnutrition: Code(s): E43 - Unspecified severe protein-calorie malnutrition Status: Acute DS: Summary Hospital Course Reason for hospitalization: Low potassium Hospital Course: This is a 54-year-old female with a 2 year history of alcohol abuse, hypertension, hyperlipidemia, pancreatitis, anxiety, and depression who presented to the emergency department after she was found to have low potassium on labs drawn earlier this morning. The patient provides some history but she defers a lot of my questions to her [id number] September who is at bedside. September states that the patient has been drinking heavily since her brother (the patient's ) . Sometime in June Rima contracted an upper respiratory infection and she has gone progressively downhill since that time. It sounds as though she was drinking more than usual in June and July and she settled into a deep depression. He was not eating much and barely left her room and she has lost about 25 lb since last fall. Family members convinced her to move in with her aunt at the end of July and the patient states that she has not had any alcohol since that time. Her aunt has not seen any evidence to suggest that she has been drinking however the patient works for [employer] and she is gone 6 days at a time and returns home for 5 days before her next trip. She returned home early last week after her last work rotation and at that time she reported that she was told that she needed to take a leave of absence as she was not able to keep up with her job. With further questioning it sounds as though she has been having trouble with her balance, is moving slower than usual, and is having problems with recall. The patient tells me that she feels as though she is ?short circuited.? She denies syncope, near syncope, head trauma, fever, headache, neck ache, cold and flu symptoms, chest pain, shortness of breath, abdominal pain, back pain, dysuria, and hematuria. She also denies vertigo, visual changes, facial droop, difficulty speaking and swallowing, focal weakness, and paresthesias. No suicidal thoughts. Again, she denies alcohol use since the end of July and also denies illicit drug use. She is not taking any [id number] medications or supplements. No personal or family history of dementia. In the ED: Her vital signs were stable on arrival. Labs are significant for a WBC count of 13.2, hemoglobin 12.0, hematocrit 36.8%, MCV 107.9, platelet 178, potassium less than 2, carbon dioxide 20, BUN 8, creatinine 0.49, glucose 113, magnesium 2.1, calcium 8.7, total bilirubin 3.3, AST 214, ALT 31, alkaline phosphatase 191, total protein 8.0, albumin 3.6, ethyl alcohol less than 10. Head CT showed a linear increased density within the left basal ganglia which could represent either atherosclerotic calcification or thrombus of the lenticulostriate artery. Subsequent CTA of the head and neck was normal. She was given potassium chloride 40 mEq p.o. and 40 mEq IV. She is being admitted in this setting for close monitoring and further workup. Neurology consulted given broad cognitive changes. Neurological examination is benign and did not yield any focal deficits. For her visit she has been able to ambulate short to medium distances without difficulty or assistance. Upon admission to the hospital, patient's speech and thought process was somewhat delayed, and patient expressed some mild confusion but was otherwise A&O x4. Brain MRI showed few scattered T2 and FLAIR hyperintense signal areas which may indicate white matter disease versus deep white matter ischemic changes, otherwise no significant abnormalities seen. Vitamin B12, C, and folate were normal. TSH normal. Vitamin B 1 level still pending but will take 2-3 days to result as it is a send out. Throughout 4 day hospital stay, patient's symptoms improved greatly and has been able to ambulate independently without any dif ficulties. Patient's speech and thought process has also improved. Patient otherwise hemodynamically stable with stable vital signs and blood work. Patient would benefit from continued care and monitoring in the outpatient setting through her PCP. Patient requires no further workup in the hospital. Symptoms likely attributed to combination of malnutrition and chronic alcohol abuse. Patient instructed to have close with primary care physician and will be discharged. Patient is amenable to this plan, she will be given a prescription for further thiamine and potassium supplementation associated see her primary care physician. Status at Discharge Functional status at discharge: independent ambulation Overall status at discharge: patient is back to baseline Time Spent with Patient Time attestation: Total time spent providing and/or coordinating discharge services: 35 Exam Narrative: General: Thin, somewhat frail-appearing female female in the semi-Morales position in bed. Weight: 49 kg. BMI: 23.4. HEENT: Normocephalic, atraumatic. No nystagmus. PERRL, EOMI. Mild scleral icterus. Moist mucous membranes. Neck: Supple. No obvious carotid bruits or thyromegaly. Respiratory: Lungs are clear to auscultation bilaterally. Cardiovascular: Regular rate and rhythm with S1-S2. Murmur at the left sternal border. Gastrointestinal: Abdomen is soft, nontender, and nondistended with positive bowel sounds. Skin: Warm and dry. Extremities: No cyanosis, clubbing, or edema. Radial and pedal pulses intact. Neurological: Alert and oriented x4. Cranial nerves 2-12 are grossly intact. Speech is clear and thought process greatly improved. No facial asymmetry. No pronator drift. 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 Gait was not assessed. No tremors. No asterixis. No dysmetria with [id number]. Psychiatric: Pleasant and cooperative with appropriate mood. DS: Data Data Completed and Pending Labs on day of discharge: Labs from last 24 hours 09/30/24 09/29/24 09/29/24 04:25 13:22 13:18 WBC 12.8 H RBC 2.84 L Hgb 9.7 L Hct 30.6 L MCV 107.7 H MCH 34.2 H MCHC 31.7 L RDW 16.2 H Plt Count 146 L MPV 9.7 Immature Gran % (Auto) 0.5 Neut % (Auto) 75.1 H Lymph % (Auto) 14.6 L [place] % (Auto) 7.3 Eos % (Auto) 1.8 Baso % (Auto) 0.7 Lymph # (Auto) 1.87 [place] # (Auto) 0.9 H Eos # (Auto) 0.2 Baso # (Auto) 0.1 Abs Immat Gran (auto) 0.06 H Absolute Neuts (auto) 9.6 H Absolute Nucleated RBC 0.000 Band Neutrophils % Not Reportable Nucleated RBC % 0.0 Platelet Estimate Slightly decreased Anisocytosis 1+ Macrocytosis 1+ Schistocytes None seen Haptoglobin Sodium 136 L 136 L Potassium 3.5 3.8 3.8 Chloride 109 H 113 H Carbon Dioxide 16 L 13 L Anion Gap 11 10 BUN < 2 L < 2 L Creatinine 0.48 L 0.48 L Estim Creat Clear Calc Not Reportable Not Reportable Estimated GFR > 60 > 60 Glucose 127 H 143 H Calcium 7.9 L 8.0 L Total Bilirubin 2.1 H AST 109 H ALT 25 Alkaline Phosphatase 180 H Ammonia 54 H Total Protein 6.0 L Albumin 2.8 L Vitamin B1 Pending 09/27/24 23:09 WBC RBC Hgb Hct MCV MCH MCHC RDW Plt Count MPV Immature Gran % (Auto) Neut % (Auto) Lymph % (Auto) [place] % (Auto) Eos % (Auto) Baso % (Auto) Lymph # (Auto) [place] # (Auto) Eos # (Auto) Baso # (Auto) Abs Immat Gran (auto) Absolute Neuts (auto) Absolute Nucleated RBC Band Neutrophils % Nucleated RBC % Platelet Estimate Anisocytosis Macrocytosis Schistocytes Haptoglobin 73 Sodium Potassium Chloride Carbon Dioxide Anion Gap BUN Creatinine Estim Creat Clear Calc Estimated GFR Glucose Calcium Total Bilirubin AST ALT Alkaline Phosphatase Ammonia Total Protein Albumin Vitamin B1 Discharge Plan Discharge Attending physician on discharge: Luke Barnhart Consulting providers: Sonya Patel Discharging Clinician: Luke Barnhart Anticipated Discharge Date/Time: 09/30/24 12:53 Patient Disposition: Home Activity: as tolerated Diet: as tolerated Discharge Instructions: Discharge disposition: Stable Take medications as prescribed Monitor blood pressures Take caution while standing, rising, or moving Change positions slowly taking a break between each position change If you standing feel dizzy sit back down and take a break Encouraged to continue with yearly vaccinations Return to the emergency department if he developed sudden shortness of breath, chest pain, nausea, vomiting, upset stomach or intractable diarrhea Return to the emergency department if you develop fever greater than 101.5 Follow-up with the primary care physician within 1-2 weeks Thank you for [facility] for your healthcare needs Patient Instructions: Antibiotic Form, Hypokalemia (DC) Patient Language: Kenyan Stand Alone Forms: General Discharge Information Follow-up/Referrals: Anna Marie Ellis APRN [Primary Care Provider] - Discharge Medications: New potassium chloride 20 mEq/15 mL liquid 20 meq PO DAILY 5 Days Qty: 75 0RF thiamine HCl (vitamin B1) 100 mg capsule 100 mg PO DAILY Qty: 5 0RF Continued hydroxyzine HCl 25 mg tablet 25 mg PO DAILY escitalopram oxalate 20 mg tablet 20 mg PO DAILY Qty: 90 0RF trazodone 50 mg tablet 50 mg PO QHS Qty: 90 0RF Date of admission: 09/29/24 14:54 Primary Care Provider: Anna Marie Ellis Admitting Provider: Fallon Ghosh Attending physician on admission: Luke Barnhart Condition: Stable Quality VTE Prophylaxis VTE prophylaxis: pharmacologic ordered
[2024-10-03 08:38] LABS: Vitamin B1 19 nmol/L (8-30)
[2024-10-03 16:13] LABS: Vitamin A 6 mcg/dL (38-98)
== END 2024-09-30 14:12 | disposition home or self-care (01) | DRG 640 ==
LOC: ANHED 15:21 → ANHIMU 17:47
PROVIDERS: Internal Medicine; Physician Assistant; Admitting Provider Hospitalist; Emergency Provider Student in an Organized Health Care Education/Training Program; PCP Nurse Practitioner Family; Visit Provider Physician Assistant
DX: E87.6 Hypokalemia (principal); E43 Unspecified severe protein-calorie malnutrition; R41.89 Other symptoms and signs involving cognitive functions and awareness; K70.9 Alcoholic liver disease, unspecified; F10.10 Alcohol abuse, uncomplicated; E78.5 Hyperlipidemia, unspecified; I10 Essential (primary) hypertension; F41.8 Other specified anxiety disorders; Z68.24 Body mass index [BMI] 24.0-24.9, adult; Z90.49 Acquired absence of other specified parts of digestive tract; Z98.84 Bariatric surgery status
CPT/HCPCS: 36415; 70450; 70496; 70498; 70551; 80048; 80053; 80061; 80076; 80307; 82077; 82140; 82248; 82306; 82607; 82728; 82746; 82977; 83010; 83036; 83540; 83550; 83615; 83690; 83735; 84100; 84132; 84425; 84443; 84590; 85025; 85027; 92507; 92523; 93005; 96365; 96366; 96372; 96376; 97161; 97165; 99285; A9270; G0378; J1650; J3411; J3480; J7040; Q9967

== ENCOUNTER 2024-10-01 10:44 | Outpatient (CLI) | payer OTHER, SELFPAY ==
--- NOTE | ~2024-10-01 | US_ITS ---
Limited Abdominal Sonogram: Real-time sonographic imaging of the right upper quadrant was performed. Clinical History: Alcohol abuse Findings: The liver appears echogenic, with no evidence of mass lesion or bile duct dilatation. It m easures 18.2 cm in length. Main portal vein demonstrates normal direction of flow. The gallbladder is absent, compatible prior cholecystectomy. The common bile duct measures 6 mm. The visualized pancre as, aorta, and IVC are unremarkable. Impression: Fatty infiltration of liver with associated hepatomegaly. Reviewed, dictated and finalized at location M. Impression: Fatty infiltration of liver with associated hepatomegaly.
== END 2024-10-01 10:45 | disposition home or self-care (01) ==
PROVIDERS: PCP Nurse Practitioner Family; Visit Provider Nurse Practitioner Family
DX: K76.0 Fatty (change of) liver, not elsewhere classified (principal); F10.10 Alcohol abuse, uncomplicated; R42 Dizziness and giddiness
CPT/HCPCS: 76705

== ENCOUNTER 2024-10-10 09:16 | Outpatient (CLI) | payer OTHER, SELFPAY ==
--- OUTSIDE RECORDS SUMMARY | 2024-10-10 09:20 | XMS_ITS | Clinical Summary ---
Author Organization [facility] Care Team Providers Care Chief Substation Operator Name Role Phone Unavailable Primary Care Provider Unavailabl e Social History Tobacco Use Types Packs/Day Years Used Date Smoking Tobacco: Never Assessed Comments Unknown Sex and Gender Information Value Date Recorded Sex Assigned at Not on file Legal Sex Female 12:41 PM OFFICE REP Gender Identity Not on file Sexual Orientation [...]
--- OUTSIDE RECORDS SUMMARY | 2024-10-10 09:20 | XMS_ITS | Data Portability ---
Author Organization [place] - [facility] [employer], Main Office Address [address] [place] [address] Assessment Encounter Date Assessment Date Assessment LastModified by Organization Details LastModified Time 10/17/2022 10/17/2022 I have reconciled the patient's medications post their discharge from inpatient facility. Not available 10/17/2022 17:45:40 Plan of Treatment Reminders Order Date Submit Date Provider Last Modified By Organization Details Last Modified Time Details Appointments None recorded. Lab amylase + lipase, serum 2022 023 [email or web address] [facility] (Lab), [address] [place], [address], 3 17:32:37 CMP, serum or plasma 2022 023 [facility] (Lab), [address] [place], [address], 3 15:55:53 vitamin D, 25-hydroxy, total, serum 2022 023 [facility] (Lab), [address] [place], [address], 3 09:48:14 vitamin B12 + folate, serum or blood 2022 023 [facility] (Lab), [address] [place], [address], 3 09:48:14 magnesium, serum or plasma 2022 023 [facility] (Lab), [address] [place], [address], 3 09:48:15 lipid panel, serum 2022 023 [facility] (Lab), [address] [place], [address], 3 09:48:14 iron + TIBC + ferritin, serum 2022 023 [facility] (Lab), [address] [place], [address], 3 09:48:14 TSH, serum or plasma 2022 023 [facility] (Lab), [address] [place], [address], 3 09:48:15 CBC w/ auto diff 2022 023 [facility] (Lab), [address] [place], [address], 3 09:48:14 CMP, serum or plasma 2022 023 [facility] (Lab), [address] [place], [address], 3 09:48:14 glycohemogl obin, total, blood 2022 023 [facility] (Lab), [address] [place], [address], 3 09:48:14 Referral None recorded. Procedures None recorded. Surgeries None recorded. Imaging MAMMO, screening, digital, bilateral 2022 023 [email or web address], [address], [address], [place], [address], 3 10:50:57 XR, chest 2022 023 JULIA Not available 12:56:19 electrocard iogram 2022 023 JULIA Not available 15:36:05 Medication Orders methocarbam ol 500 mg tablet 2022 023 [facility]armacy #2510, [address] [place], [address], 3 14:57:04 atenolol 50 mg tablet 2022 023 [facility] [address] [place], [address], 3 14:57:04 Lexapro 20 mg tablet 2022 023 [facility] [address] [place], [address], 3 14:57:03 losartan 100 mg tablet 2022 023 [facility]/Pharmacy #2510, [address] [place], [address], 3 17:39:09 hydrochloro thiazide 12.5 mg capsule 2022 023 [facility]/Pharmacy #2510, [address] [place], [address], 3 17:39:08 hydroxyzine HCl 25 mg tablet 2022 023 [facility]/Pharmacy #2510, [address] [place], [address], 3 17:39:08 losartan 50 [address] [facility]/Pharmacy #2510, [address] [place], [address], 3 17:44:40 hydrochloro thiazide 12.5 mg capsule 2022 023 [facility] #3315, [address] [place], [address], 15:17:11 Patient TargetsNo targets recorded. Patient Instructions Encounter Date Encounter Id Patient Instructions Last Modified By Organization Details Last Modified Time 09/14/2022 [id number] FU in 2 weeks fo r bp, labs, ekg, chest xray. Not available 09/14/2022 15:20:02 10/17/2022 [id number] Thank you for your visit to our [...] homebound status}} Required Home Health Services: {{none senior care, physical therapy, occupational therapy senior care, physical therapy senior care}} Durable Medical Equipment needed: {{cane walker wal ker with seat manual wheelchair bedsid e commode oxygen}} Billing Guidelines CPT code 45129- Transitional Care Management services with moderate medical decision complexity (xvry-of-exxh visit within 14 days of discharge). CPT code 53600- Transitional Care Management services with high medical decision complexity (rqbb-un-btnu visit within 7 days of discharge). Not available 10/17/2022 16:58:55 11/29/2022 [id number] FU in 2 mo for htn, lipid, depression/anxiet y, back pain Not available 11/29/2022 15:02:11 01/24/2023 [id number] FU in 6 mo for htn, lipid, depression/anxiet y, back pain [email or web address] Not available 01/24/2023 14:35:26 Reason for Referral None Reported. Results Created Date Observation Date Name Description Value Unit Range Abnormal Flag Note LastModifiedBy Organization Detail LastModifiedTime 09/16/1909/15/2022 XR, chest No observ ation record ed. [address], [place], [address], 09/15/2022 17:18:09 09/17/19 23 09/15/2022 elect sami julesgr am No observ ation record ed. [address] (Resp Services) [address] [place] [address], [address], 09/21/2022 14:34:20 10/09/19 23 10/08/2022 CT, abdom en + pelvi s, w/ contr ast No observ ation record ed. [address] [address], [place], [address], 10/09/2022 16:44:06 10/09/19 23 10/08/2022 US, abdom en, limit ed No observ ation record ed. [address], [address], 10/09/2022 16:44:51 Result Notes None recorded. Problems Name Problem SNOMED Code Status Onset Date Resolution Date Notes Provider Name and Address Organization Details Recorded Time Essential hypertensio n 09207973 Active 2022 Anna Marie Ellis NP [address], [address], [place], [address], [employer] 3 15:04:17 Serum iron above reference range 094960804 Active 2022 Anna Marie Ellis NP [address], [address], [place], [address], [employer] 3 19:52:39 Liver enzymes level above reference range 136867283 Active 2022 Anna Marie Ellis NP [address], [address], [place], [address], [employer] 3 19:52:54 Hyperlipide phyllis 15044339 Active 2022 Anna Marie Ellis NP [address], [address], [place], [address], [employer] 3 19:53:00 Hyperglycem ia 51989236 Active 2022 Anna Marie Ellis NP [address], [address], [place], [address], [employer] 3 19:53:08 Hemochromat osis 418686946 Active 2022 Anna Marie Ellis NP [address], [address], [place], [address], [employer] 3 19:53:53 Anxiety 57808064 Active 2022 Anna Marie Ellis NP [address], [address], [place], [address], [employer] 3 11:30:16 Mixed anxiety and depressive disorder 758083674 Active 2022 Anna Marie Ellis NP [address], [address], [place], [address], [employer] 3 17:20:40 Gastroesoph ageal reflux disease 322309390 Active 2022 Anna Marie Ellis NP [address], [address], [place], [address], [employer] 3 17:29:08 Acute pancreatiti s 243047714 Active 2022 Anna Marie Ellis NP [address], [address], [place], [address], [employer] [place] [facility] [employer] 3 17:36:34 Bereavement 91544564 Active 2022 Anna Marie Ellis NP [address], [address], [place], [address], [employer] 17:59:21 Spasm of back muscles 844446724 Active 2022 Anna Marie Ellis NP [address], [address], [place], [address], [employer] 14:50:55 Bilateral tinnitus 2528397752735 Active 2022 Anna Marie Ellis NP [address], [address], [place], [address], [employer] [facility] 14:33:11 Problem Notes None recorded. Procedures Surgical History Date Name Laterality Status Provider Name and Address Organization Details Recorded Time 10/18/19 Transitional_Care_M anagement completed Anna Marie Talamantes RN [facility] [employer] [facility] 10/17/2022 16:58:55 06/04/19 Gastric bypass for obesity completed Anna Marie Ellis NP [address] [facility], [address], [place], [address], [employer] [facility] 09/14/2022 15:11:10 section completed Anna Marie Talamantes RN [facility] [employer] [facility] 09/14/2022 14:50:55 cholecystectomy completed Anna Marie Talamantes RN [facility] [employer] [facility] 09/14/2022 14:51:09 decompression of ulnar nerve completed Anna Marie Talamantes RN [facility] [employer] [facility] 09/14/2022 14:52:53 Carpal tunnel surgery completed Anna Marie Talamantes RN [facility] [employer] [facility] 09/14/2022 14:53:05 Imaging Results Imaging Date Name Status LastModified by Organization Details LastModified Time 09/15/2022 XR, chest completed [address] [facility] [address], [place], [address], 09/15/2022 17:18:09 09/15/2022 electrocardiogram completed [address] (Resp Services) [address] [place] [address] [address], [place], [address], 09/21/2022 14:34:20 10/08/2022 CT, abdomen + pelvis, w/ contrast completed [address], [place], [address], 10/09/2022 16:44:06 10/08/2022 US, abdomen, limited completed [address], [place], [address], 10/09/2022 16:44:51 Procedure Notes None recorded. Medical [...] Address Organization Details Last Updated DateTime 3 39677.1 7 g 31.3 kg/m2 149.86 cm 96 [degF] 86 /min 16 /min 96 % 96 % 0 210 mm[Hg] 120 mm[Hg] Anna Marie Talamantes RN [facility] [employer] 3 14:46:15 Date Recorded Body height Body mass index (BMI) Body weight Body temperature Respiratory rate Pain severity - 0-10 verbal numeric rating [Score] - Reported Heart rate Systolic blood pressure Diastolic blood pressure Provider Name and Address Organization Details Last Updated DateTime 3 149.86 cm 31.1 kg/m2 96700.5 7 g 97 [degF] 16 /min 4 88 /min 170 mm[Hg] 100 mm[Hg] Anna Marie Talamantes RN [facility] [employer] 3 17:05:26 Date Recorded Body height Body mass index (BMI) Body weight Body temperature Heart rate Oxygen saturation Oxygen saturation in Arterial blood by Pulse oximetry Systolic blood pressure Diastolic blood pressure Provider Name and Address Organization Details Last Updated DateTime 3 149.86 cm 32.1 kg/m2 92563.5 4 g 97.7 [degF] 61 /min 97 % 97 % 171 mm[Hg] 96 mm[Hg] Kristi Ovalle MA [employer] 3 14:33:48 Date Recorded Body height Body mass index (BMI) Body weight Body temperature Pain severity - 0-10 verbal numeric rating [Score] - Reported Respiratory rate Heart rate Oxygen saturation Oxygen saturation in Arterial blood by Pulse oximetry Systolic blood pressure Diastolic blood pressure Provider Name and Address Organization Details Last Updated DateTime 149.86 cm 32.5 kg/m2 05019.0 7 g 96.4 [degF] 0 16 /min 53 /min 97 % 97 % 122 mm[Hg] 76 mm[Hg] Anna Marie Talamantes RN [facility] [employer] [facility] 14:15:55 Social History Question Answer Notes LastModified by Organization Details LastModified Time Tobacco Smoking Status Never Smoker Anna Marie Talamantes RN [facility], [facility] [employer] [facility] 01/24/2023 14:10:15 Do You Have An [...] Or The Highest Degree You Have Received? [id number] Information not available 01/24/2023 What Is Your Occupation? [employer] Information not available 01/24/2023 Have There Been Any Changes To Your Family Or Social Situation? Yes Passed On 09/23/22 Information not available 01/24/2023 Do You Use Insect Repellent Routinely? Yes Information not available 01/24/2023 Where Do You Live? [place]House Information not available 01/24/2023 Do You Have A Medical Power Of [employer] Administrator? No Information not available 01/24/2023 How Many [...] Anxious, Or Unable To Sleep At Night)? [id number] Information not available 01/24/2023 Do You Use [...] HAVE YOU BEEN HOSPITALIZED OR SEEN IN [facility] IN THE PAST YEAR ? Y Gynecological History Statement/Question Response Date of Last Pap Smear Current Control Method IUD Date of Last Colonoscopy Most Recent Mammogram Most Recent Bone Density Obstetrics History GPAL:G 0 P 0 0 0 0 Past Encounters Encounter ID Performer Location Encounter Start Date Encounter Closed Date Diagnosis/Indication Diagnosis SNOMED-CT Code Diagnosis ICD10 Code Diagnosis Note [id number] Anna Marie Ellis NP [address] [address] 09/14/2022 14:35:40 09/14/2022 15:38:36 Essential hypertension 38911343 I10 Losartan 50 mg po daily. HCTZ 12.5 mg po daily. Anemia screening 6681158 07 Z13.0 Diabetes m ellitus screening 774402229 Z13.1 Thyroid di sorder screening 454781309 Z13.29 Hyperlipid emia screening 954493008 Z13.220 Screening for disorder 292269221 Z13.9 Screening mammography of bilateral breasts 8248772294 11933 Z12.31 Mammogram ordered 09/14/22 History of bypass of stomach 992144637 Z98.84 2009. Has been on iron tablets. [id number] Anna Marie Ellis NP [address] [address] 10/17/2022 16:47:14 10/17/2022 18:05:51 Essential hypertension 25654506 I10 Losartan 50 mg po daily to 100 mg po daily on 10/17/22. HCTZ 12.5 mg po daily. Mixed anxi ety and depressive disorder 712575269 F41.8 lexapro 10 mg po daily. Hydroxyzin e 25 mg po tid prn. Gastroesop hageal reflux disease 099764568 K21.9 pantoprazo le 40 mg po daily. will be on for 2 mo.Pancrea titis. Acute pancreatitis 2142 K85.80 Amylase/li pase/cmp. If still raised, will refer back to Dr. Yu MATIAS at [facility]. Bereavement 91418198 Z63 .4 Mourning sudden of . Plans to call [employer] and if needed, I will give referral and FMLA. [id number] Anna Marie Ellis NP [address] [address] 11/29/2022 14:20:11 11/29/2022 15:05:09 Mixed anxiety and depressive disorder 439901862 F41.8 Lexapro 20 mg po daily (increased dose from 10 mg 11/29/22). Hydroxyzin e 25 mg po tid prn. Gastroesop hageal reflux disease 894271772 K21.9 no further issues. Not on meds as of 11/29/22Pan creatitis. Hyperlipidemia 38154901 E78.5 low fat diet [facility] 09/2022 Essential hypertension 02615325 I10 Losartan 100 mg po daily. HCTZ 12.5 mg po daily.Hilbert olol 50 mg po daily added on 11/29/22 Bereavement 66850865 Z63 .4 Mourning sudden of . Plans to call [employer] and if needed, I will give referral and FMLA. Spasm of back muscles 20 4134102 M62.830 methocarba mol 500 mg po bid prn. [id number] Anna Marie Ellis NP [address] [address] 01/24/2023 14:04:33 01/24/2023 14:45:33 Essential hypertension 70227256 I10 Losartan 100 mg po daily. HCTZ 12.5 mg po daily.Hilbert olol 50 mg po daily added on 11/29/22 Mixed anxi ety and depressive disorder 367292375 F41.8 Lexapro 20 mg po daily (increased dose from 10 mg 11/29/22). Hydroxyzin e 25 mg po tid prn. Gastroesop hageal reflux disease 032760472 K21.9 no further issues. Not on meds as of 11/29/22Pan creatitis. Hyperlipidemia 46943092 E78.5 low fat diet [facility] s 09/2022 Bereavement 78438809 Z63 .4 Mourning sudden of . Plans to call [employer] and if needed, I will give referral and FMLA. Spasm of back muscles 20 8578941 M62.830 methocarba mol 500 mg po bid prn. Bilateral tinnitus 21520 54187 102 H93.13 worked for the [employer] and likely having hearing loss. Health Concerns Section Related Observation LastModified by Organization Detai ls LastModified Time None Recorded Concern Status LastModified by Organization Details LastModified Time None Recorded Advance Directives Directive N: Payers Encounter Date Sequence Insurance Name Policy Number Policy Gambino Covered Member ID Gambino Member ID Guarantor Name 09/14/2022 1 [employer] - CHOICE (POS II) [id number] Leonard Hanson [id number] Rima Hanson 10/17/2022 1 [employer] - CHOICE (POS II) [id number] Leonard Hanson [id number] Rima Hanson 11/29/2022 1 [employer] - CHOICE (POS II) [id number] Leonard Hanson [id number] Rima Hanson 01/24/2023 1 [employer] - CHOICE (POS II) [id number] Leonard Hanson [id number] Rima Hanson Notes Date Note Type Note Provider Name and Address Organization Details Recorded Time 09/14/2022 text/html Here for new patient appt.BP has been high and needing checked out. HTN- has been up at urgent care. Was up at in May and Jul. Caffeine weaned off. Salt- moderate. 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 Hasn't been to [facility] since 2019. Mirena due to be out. No periods since having Mirena.[employer] vision, reading and distance glasses.[facility] dental. 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 Anna Marie Ellis, [employer] [address] [facility], [address], [place], [address], [facility] [employer] 09/14/2022 15:31:37 10/17/2022 text/html Here with STEPHANIE. [...] Ellis NP [address], [address], [place], [address], [employer] [facility] [employer] 10/17/2022 18:00:17 11/29/2022 text/html Here for 1 mo check up. Has been back to work on [employer]. Lexapro helps, hydroxyzine helps. At least when [...] Ellis NP [address], [address], [place], [address], [employer] [facility] [employer] 11/29/2022 15:04:47 01/24/2023 text/html Here for 2 [...] Ellis NP [address], [address], [place], [address], [employer] [facility] [employer] 01/24/2023 14:40:27 OBGyn Episode No OBEpisode recorded.
[2024-10-10 10:01] LABS: Basophils Absolute Auto 0.1 K/mm3 (0.0-0.1); Basophils Percent Auto 0.7 % (0.2-1.2); Eosinophils Absolute Auto 0.2 K/mm3 (0-0.3); Eosinophils Percent Auto 2.7 % (0-4.4); Hemoglobin 11.1 g/dL (12.0-15.0); Immature Granulocyte Absolute 0.05 K/mm3 (0.00-0.031); Immature Granulocyte Percent A 0.6 % (0-0.5); Lymphocytes Absolute Auto 1.68 K/mm3 (0.9-3.2); Lymphocytes Percent Auto 19.1 % (18.3-44.2); Mean Corpuscular HGB Conc 31.7 g/dl (32-36); Mean Corpuscular Hemoglobin 33.7 pg (26-34); Mean Corpuscular Volume 106.4 fl (80-100); Mean Platelet Volume 9.4 fl (7.4-10.4); Monocytes Absolute Auto 0.6 K/mm3 (0.1-0.6); Monocytes Percent Auto 6.6 % (2.6-8.5); Neutrophils Absolute Auto 6.2 K/mm3 (1.3-6.7); Neutrophils Percent Auto 70.3 % (45.5-73.1); Platelet Count Result 189 k/mm3 (150-375); Red Blood Count 3.29 M/mm3 (4.2-5.4); Red Cell Distribution Width 15.4 % (11.5-14.5); White Blood Count 8.8 K/mm3 (4.5-10.0)
[2024-10-10 10:20] LABS: Alanine Aminotransferase 24 U/L (6-35); Albumin Level 3.3 g/dL (3.5-5.1); Alkaline Phosphatase 182 U/L (38-126); Anion Gap 9 mmol/L (4-12); Aspartate Amino Transferase 150 U/L (14-36); Bilirubin,Total 2.4 mg/dL (0.2-1.3); Blood Urea Nitrogen 6 mg/dL (7-17); Calcium 8.8 mg/dL (8.4-10.2); Carbon Dioxide 22 mmol/L (22-30); Chloride 111 mmol/L (98-107); Cholesterol 291 mg/dL (0-200); Estimated Glomerular Filt Rate > 60; Glucose 99 mg/dL (65-110); HDL Direct 37 mg/dL; Sodium 142 mmol/L (137-145); Triglycerides 219 mg/dL (<150)
[2024-10-10 10:23] LABS: Hemoglobin A1C 4.3 % (<5.7)
[2024-10-10 10:31] LABS: LDL Cholesterol Direct 148 mg/dL
[2024-10-10 11:44] LABS: Hypochromasia 1+; Platelet Estimate Adequate (Adequate); Schistocytes None Seen
[2024-10-10 11:46] LABS: Macrocytosis 1+ (NORMAL)
[2024-10-10 20:43] LABS: GGT 271 U/L (3-70)
== END 2024-10-10 09:17 | disposition home or self-care (01) ==
LOC: ANHLAB 09:17
PROVIDERS: PCP Nurse Practitioner Family; Visit Provider Nurse Practitioner Family
DX: Z13.220 Encounter for screening for lipoid disorders (principal); Z13.0 Encounter for screening for diseases of the blood and blood-forming organs and certain disorders involving the immune mechanism; Z13.1 Encounter for screening for diabetes mellitus; Z13.29 Encounter for screening for other suspected endocrine disorder; E87.6 Hypokalemia; F10.10 Alcohol abuse, uncomplicated
CPT/HCPCS: 36415; 80053; 80061; 82977; 83036; 84443; 85025

== ENCOUNTER 2024-10-22 14:35 | Outpatient (CLI) | payer OTHER, SELFPAY ==
--- OUTSIDE RECORDS SUMMARY | 2024-10-22 14:33 | XMS_ITS | Data Portability ---
Author Organization [place] [facility], Main Office Address [address] [place] [address] Assessment Encounter Date Assessment Date Assessment LastModified by Organization Details LastModified Time 10/17/2022 10/17/2022 I have reconciled the patient's medications post their discharge from inpatient facility. Not available 10/17/2022 17:45:40 Plan of Treatment Reminders Order Date Submit Date Provider Last Modified By Organization Details Last Modified Time Details Appointments None recorded. Lab amylase + lipase, serum 2022 023 [email or web address] [facility] (Lab), [address] [place], [address], 3 17:32:37 CMP, serum or plasma 2022 023 [facility] (Lab), [address] [place], [address], 3 15:55:53 vitamin D, 25-hydroxy, total, serum 2022 023 [facility] (Lab), [address] [place], [address], 3 09:48:14 vitamin B12 + folate, serum or blood 2022 023 [facility] (Lab), [address] [place], [address], 3 09:48:14 magnesium, serum or plasma 2022 023 [facility] (Lab), [address] [place], [address], 3 09:48:15 lipid panel, serum 2022 023 [facility] (Lab), [address] [place], [address], 3 09:48:14 iron + TIBC + ferritin, serum 2022 023 [facility] (Lab), [address] [place], [address], 3 09:48:14 TSH, serum or plasma 2022 023 [facility] (Lab), [address] [place], [address], 3 09:48:15 CBC w/ auto diff 2022 023 [facility] (Lab), [address] [place], [address], 3 09:48:14 CMP, serum or plasma 2022 023 [facility] (Lab), [address] [place], [address], 3 09:48:14 glycohemogl obin, total, blood 2022 023 [facility] (Lab), [address] [place], [address], 3 09:48:14 Referral None recorded. Procedures None recorded. Surgeries None recorded. Imaging MAMMO, screening, digital, bilateral 2022 023 [email or web address] [facility], [address], [address], [place], [address], 3 10:50:57 XR, chest 2022 023 JULIA Not available 12:56:19 electrocard iogram 2022 023 JULIA Not available 15:36:05 Medication Orders methocarbam ol 500 mg tablet 2022 023 [facility]2510, [address] [place], [address], 3 14:57:04 atenolol 50 mg tablet 2022 023 [facility] [address] [place], [address], 3 14:57:04 Lexapro 20 mg tablet 2022 023 [facility] [address] [place], [address], 3 14:57:03 losartan 100 mg tablet 2022 023 [facility] #2510, [address] [place], [address], 3 17:39:09 hydrochloro thiazide 12.5 mg capsule 2022 023 [facility] #2510, [address] [place], [address], 3 17:39:08 hydroxyzine HCl 25 mg tablet 2022 023 [facility]2510, [address] [place], [address], 3 17:39:08 losartan 50 mg tablet 2022 023 [facility]/Pharmacy #2510, [address] [place], [address], 3 17:44:40 hydrochloro thiazide 12.5 mg capsule 2022 023 [facility] #0343, [address] [place], [address], 15:17:11 Patient TargetsNo targets recorded. Patient Instructions Encounter Date Encounter Id Patient Instructions Last Modified By Organization Details Last Modified Time 09/14/2022 [id number] FU in 2 weeks fo r bp, labs, ekg, chest xray. Not available 09/14/2022 15:20:02 10/17/2022 [id number] Thank you for your visit to our [...] homebound status}} Required Home Health Services: {{none assisted, physical therapy, occupational therapy assisted, physical therapy assisted}} Durable Medical Equipment needed: {{cane walker wal ker with seat manual wheelchair bedsid e commode oxygen}} Billing Guidelines CPT code 31828- Transitional Care Management services with moderate medical decision complexity (ttyt-vd-kafu visit within 14 days of discharge). CPT code 16177- Transitional Care Management services with high medical decision complexity (lxso-oz-datz visit within 7 days of discharge). Not available 10/17/2022 16:58:55 11/29/2022 [id number] FU in 2 mo for htn, lipid, depression/anxiet y, back pain Not available 11/29/2022 15:02:11 01/24/2023 [id number] FU in 6 mo for htn, lipid, depression/anxiet y, back pain [email or web address] Not available 01/24/2023 14:35:26 Reason for Referral None Reported. Results Created Date Observation Date Name Description Value Unit Range Abnormal Flag Note LastModifiedBy Organization Detail LastModifiedTime 09/16/1909/15/2022 XR, chest No observ ation record ed. [address], [place], [address], 09/15/2022 17:18:09 09/17/19 23 09/15/2022 elect sami julesgr am No observ ation record ed. [address] (Resp Services) [address] [place] [address], [address], 09/21/2022 14:34:20 10/09/19 23 10/08/2022 CT, abdom en + pelvi s, w/ contr ast No observ ation record ed. [address] [address], [place], [address], 10/09/2022 16:44:06 10/09/19 23 10/08/2022 US, abdom en, limit ed No observ ation record ed. [address], [address], 10/09/2022 16:44:51 Result Notes None recorded. Problems Name Problem SNOMED Code Status Onset Date Resolution Date Notes Provider Name and Address Organization Details Recorded Time Essential hypertensio n 44185748 Active 2022 Anna Marie Ellis NP [address], [address], [place], [address], [employer] 3 15:04:17 Serum iron above reference range 879599241 Active 2022 Anna Marie Ellis NP [address], [address], [place], [address], [employer] 3 19:52:39 Liver enzymes level above reference range 803406748 Active 2022 Anna Marie Ellis NP [address], [address], [place], [address], [email or web address] [facility] 3 19:52:54 Hyperlipide phyllis 74735903 Active 2022 Anna Marie Ellis NP [address], [address], [place], [address], [employer] [facility] 3 19:53:00 Hyperglycem ia 31914761 Active 2022 Anna Marie Ellis NP [address], [address], [place], [address], [employer] [facility] 3 19:53:08 Hemochromat osis 924159352 Active 2022 Anna Marie Ellis NP [address], [address], [place], [address], [employer] [facility] 3 19:53:53 Anxiety 17141190 Active 2022 Anna Marie Ellis NP [address], [address], [place], [address], [employer] [facility] 3 11:30:16 Mixed anxiety and depressive disorder 741198865 Active 2022 Anna Marie Ellis NP [address], [address], [place], [address], [email or web address] [facility] [employer] 3 17:20:40 Gastroesoph ageal reflux disease 201312343 Active 2022 Anna Marie Ellis NP [address], [address], [place], [address], [employer] 3 17:29:08 Acute pancreatiti s 744434327 Active 2022 Anna Marie Ellis NP [address], [address], [place], [address], [employer] [place] [facility] [employer] 3 17:36:34 Bereavement 74596152 Active 2022 Anna Marie Ellis NP [address], [address], [place], [address], [employer] 17:59:21 Spasm of back muscles 054403142 Active 2022 Anna Marie Ellis NP [address], [address], [place], [address], [employer] 14:50:55 Bilateral tinnitus 9046065980970 Active 2022 Anna Marie Ellis NP [address], [address], [place], [address], [employer] [facility] 14:33:11 Problem Notes None recorded. Procedures Surgical History Date Name Laterality Status Provider Name and Address Organization Details Recorded Time 10/18/19 Transitional_Care_M anagement completed Anna Marie Talamantes RN [facility] [employer] [facility] 10/17/2022 16:58:55 06/04/19 Gastric bypass for obesity completed Anna Marie Ellis NP [address] [facility], [address], [place], [address], [employer] [facility] 09/14/2022 15:11:10 section completed Anna Marie Talamantes RN [facility] [employer] [facility] 09/14/2022 14:50:55 cholecystectomy completed Anna Marie Talamantes RN [facility] [employer] [facility] 09/14/2022 14:51:09 decompression of ulnar nerve completed Anna Marie Talamantes RN [facility] [employer] [facility] 09/14/2022 14:52:53 Carpal tunnel surgery completed Anna Marie Talamantes RN [facility] [employer] [facility] 09/14/2022 14:53:05 Imaging Results Imaging Date Name Status LastModified by Organization Details LastModified Time 09/15/2022 XR, chest completed [address] [facility] [address], [place], [address], 09/15/2022 17:18:09 09/15/2022 electrocardiogram completed [address] (Resp Services) [address] [place] [address] [address], [place], [address], 09/21/2022 14:34:20 10/08/2022 CT, abdomen + pelvis, w/ contrast completed [address], [place], [address], 10/09/2022 16:44:06 10/08/2022 US, abdomen, limited completed [address], [place], [address], 10/09/2022 16:44:51 Procedure Notes None recorded. Medical [...] Address Organization Details Last Updated DateTime 3 43548.1 7 g 31.3 kg/m2 149.86 cm 96 [degF] 86 /min 16 /min 96 % 96 % 210 mm[Hg] 120 mm[Hg] Anna Marie Talamantes RN [facility] [employer] [facility] 3 14:46:15 Date Recorded Body height Body mass index (BMI) Body weight Body temperature Respiratory rate Heart rate Systolic blood pressure Diastolic blood pressure Provider Name and Address Organization Details Last Updated DateTime 3 149.86 cm 31.1 kg/m2 77317.5 7 g 97 [degF] 16 /min 88 /min 170 mm[Hg] 100 mm[Hg] Anna Marie Talamantes RN [facility] [employer] [facility] 3 17:05:26 Date Recorded Body height Body mass index (BMI) Body weight Body temperature Heart rate Oxygen saturation Oxygen saturation in Arterial blood by Pulse oximetry Systolic blood pressure Diastolic blood pressure Provider Name and Address Organization Details Last Updated DateTime 3 149.86 cm 32.1 kg/m2 85344.5 4 g 97.7 [degF] 61 /min 97 % 97 % 171 mm[Hg] 96 mm[Hg] Kristi Ovalle MA [facility] [employer] [facility] 3 14:33:48 Date Recorded Body height Body mass index (BMI) Body weight Body temperature Respiratory rate Heart rate Oxygen saturation Oxygen saturation in Arterial blood by Pulse oximetry Systolic blood pressure Diastolic blood pressure Provider Name and Address Organization Details Last Updated DateTime 3 149.86 cm 32.5 kg/m2 14108.0 7 g 96.4 [degF] 16 /min 53 /min 97 % 97 % 122 mm[Hg] 76 mm[Hg] Anna Marie Talamantes RN [facility] [employer] [facility] 14:15:55 Social History Question Answer Notes LastModified by Organization Details LastModified Time Tobacco Smoking Status Never Smoker Anna Marie Talamantes RN [facility], [facility] [employer] [facility] 01/24/2023 14:10:15 Do You Have An Advance Directive? No Information not available 10/17/2022 Is Blood Transfusion Acceptable In An Emergency? [...] Was Ill? No Information not available 01/24/2023 What Type Of Diet Are You Following? REGULAR Low Fat Information not available 01/24/2023 What Is The Highest Grade Or Level Of School You Have Completed Or The Highest Degree You Have Received? [id number] Information not available 01/24/2023 Have There Been Any Changes To Your Family Or Social Situation? Yes Passed On 09/23/22 Information not available 01/24/2023 Do You Use Insect Repellent Routinely? Yes Information not available 01/24/2023 Where Do You Live? SingleLevelHouse Information not available 01/24/2023 Do You Have A Medical Power Of Contour Grinder? No Information not available 01/24/2023 How Many [...] Functional Status Question Answer Note LastModified by [employer] ion Details LastModified Time Do you use any illicit or recreational drugs? No Information not available 01/24/2023 What is your level of alcohol consumption? Moderate Information not available 09/14/2022 Are you currently employed? Yes Information not available 01/24/2023 What is your occupation? [employer] Information not available 01/24/2023 What is your exercise level? None Information not available 10/17/2022 Mental Status Question Answer Note LastModified by Organization D etails LastModified Time Do you feel stressed (tense, restless, nervous, or anxious, or unable to sleep at night)? [id number] Information not available 01/24/2023 Family History Relationship Description Onset Age of this Age Resolved Age Notes LastModified by Organization Details LastModified Time Father Hypertensive disorder Not available 2022 14:46:51 Father Diabetes mellitus Not available 2022 14:47:05 Father Myocardial infarction Not available 09/14 14:47:30 Mother Hypertensive disorder Not available 2022 14:46:51 Mother Myocardial infarction Not available 09/14 14:59:29 Sister Myocardial infarction Not available 09/14 14:47:30 Medical History Condition Response OTHER # 1 Y ANXIETY DISORDER Y DEPRESSION (INCLUDING POST ) Y HAVE YOU BEEN HOSPITALIZED OR SEEN IN TH E ER IN THE PAST YEAR ? Y Gynecological History Statement/Question Response Date of Last Pap Smear Current Control Method IUD Date of Last Colonoscopy Most Recent Mammogram Most Recent Bone Density Obstetrics History GPAL:G 0 P 0 0 0 0 Past Encounters Encounter ID Performer Location Encounter Start Date Encounter Closed Date Diagnosis/Indication Diagnosis SNOMED-CT Code Diagnosis ICD10 Code Diagnosis Note [id number] Anna Marie Ellis NP [facility] [address] [place] [address] 09/14/2022 14:35:40 09/14/2022 15:38:36 Essential hypertension 76653409 I10 Losartan 50 mg po daily. HCTZ 12.5 mg po daily. Anemia screening 9154043 07 Z13.0 Diabetes m ellitus screening 615946808 Z13.1 Thyroid di sorder screening 823703697 Z13.29 Hyperlipid emia screening 429120070 Z13.220 Screening for disorder 471830878 Z13.9 Screening mammography of bilateral breasts 4960657623 40385 Z12.31 Mammogram ordered 09/14/22 History of bypass of stomach 331021511 Z98.84 2009. Has been on iron tablets. [id number] Anna Marie Ellis NP [facility] [address] [place] [address] 10/17/2022 16:47:14 10/17/2022 18:05:51 Essential hypertension 24147711 I10 Losartan 50 mg po daily to 100 mg po daily on 10/17/22. HCTZ 12.5 mg po daily. Mixed anxi ety and depressive disorder 888885081 F41.8 lexapro 10 mg po daily. Hydroxyzin e 25 mg po tid prn. Gastroesop hageal reflux disease 483803243 K21.9 pantoprazo le 40 mg po daily. will be on for 2 mo.Pancrea titis. Acute pancreatitis 1294 K85.80 Amylase/li pase/cmp. If still raised, will refer back to Dr. Yu MATIAS at [facility]. Bereavement 55913284 Z63 .4 Mourning sudden of . Plans to call [employer]AP and if needed, I will give referral and FMLA. [id number] Anna Marie Ellis NP [facility] [address] [place] [address] 11/29/2022 14:20:11 11/29/2022 15:05:09 Mixed anxiety and depressive disorder 095516811 F41.8 Lexapro 20 mg po daily (increased dose from 10 mg 11/29/22). Hydroxyzin e 25 mg po tid prn. Gastroesop hageal reflux disease 560770834 K21.9 no further issues. Not on meds as of 11/29/22Pan creatitis. Hyperlipidemia 01411732 E78.5 low fat diet [facility] s 09/2022 Essential hypertension 87077988 I10 Losartan 100 mg po daily. HCTZ 12.5 mg po daily.Pabellones olol 50 mg po daily added on 11/29/22 Bereavement 13645656 Z63 .4 Mourning sudden of . Plans to call [employer] and if needed, I will give referral and FMLA. Spasm of back muscles 20 4848501 M62.830 methocarba mol 500 mg po bid prn. [id number] Anna Marie Ellis NP [facility] [address] [place] [address] 01/24/2023 14:04:33 01/24/2023 14:45:33 Essential hypertension 80117016 I10 Losartan 100 mg po daily. HCTZ 12.5 mg po daily.Pabellones olol 50 mg po daily added on 11/29/22 Mixed anxi ety and depressive disorder 057683436 F41.8 Lexapro 20 mg po daily (increased dose from 10 mg 11/29/22). Hydroxyzin e 25 mg po tid prn. Gastroesop hageal reflux disease 959621485 K21.9 no further issues. Not on meds as of 11/29/22Pan creatitis. Hyperlipidemia 75057194 E78.5 low [facility] 09/2022 Bereavement 67734595 Z63 .4 Mourning sudden of . Plans to call [employer] and if needed, I will give referral and FMLA. Spasm of back muscles 20 3038461 M62.830 methocarba mol 500 mg po bid prn. Bilateral tinnitus 87233 51935 102 H93.13 worked for the [employer] and likely having hearing loss. Health Concerns Section Related Observation LastModified by Organization Detai ls LastModified Time None Recorded Concern Status LastModified by Organization Details LastModified Time None Recorded Advance Directives Directive N: Payers Encounter Date Sequence Insurance Name Policy Number Policy Gambino Covered Member ID Gambino Member ID Guarantor Name 09/14/2022 1 [employer] - CHOICE (POS II) [id number] Leonard Hanson [id number] Rima Hanson 10/17/2022 1 [employer] - CHOICE (POS II) [id number] Leonard Hanson [id number] Rima Hanson 11/29/2022 1 [employer] - CHOICE (POS II) [id number] Leonard Hanson [id number] Rima Hanson 01/24/2023 1 [employer] - CHOICE (POS II) [id number] Leonard Hanson [id number] Rima Hanson Notes Date Note Type Note Provider Name and Address Organization Details Recorded Time 09/14/2022 text/html Here for new patient appt.BP has been high and needing checked out. HTN- has been up at urgent care. Was up at in May and Jul. Caffeine weaned off. Salt- moderate. 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 Hasn't been to [employer] since 2019. Mirena due to be out. No periods since having Mirena.[employer] vision, reading and distance glasses.[employer] dental. 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 Anna Marie Ellis NP [address] [facility], [facility] [address], [place], [address], [facility] [employer] 09/14/2022 15:31:37 10/17/2022 text/html Here with STEPHANIE. [...] Marie Ellis NP [address], [address], [place], [address], [employer] 10/17/2022 18:00:17 11/29/2022 text/html Here for 1 mo check up. Has been back to work on [employer]. Lexapro helps, hydroxyzine helps. At least when [...] Marie Ellis NP [address], [address], [place], [address], [employer] [facility] 11/29/2022 15:04:47 01/24/2023 text/html Here for 2 [...] Marie Ellis NP [address], [address], [place], [address], [employer] [facility] 01/24/2023 14:40:27 OBGyn Episode No OBEpisode recorded.
--- OUTSIDE RECORDS SUMMARY | 2024-10-22 14:33 | XMS_ITS | Clinical Summary ---
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
--- NOTE | 2024-10-22 14:56 | ECHO_ITS ---
Patient Info Name: Rima Hanson Age: 54 years : 1970 Gender: Female Ht: 59 in Wt: 120 lbs BSA: 1.52 m2 HR: 76 bpm BP: 123 / 82 mmHg Heart Rhythm: Sinus Rhythm Technical Quality: Good Exam Date: 10/22/2024 3:01 PM Patient Status: O Admit Date: 10/22/2024 Exam Type: CA echo doppler color flow Complete two-dimensional, color flow and Doppler transthoracic echocardiogram is performed. Gyroscope Technician: Birgit Rose Attending Provider: Anna Marie Ellis Summary 1. Complete two-dimensional, color flow and Doppler transthoracic echocardiogram is performed. 2. Left ventricular chamber dimension is normal. 3. Left ventricular systolic function is normal, estimated at 60-65. 4. The left ventricular diastolic function is grade II diastolic dysfunction. 5. E/e' 12 is mildly elevated. 6. There is mild aortic valve sclerosis. 7. There is trace aortic valve regurgitation. 8. The mitral valve has a moderately calcified annulus. 9. There is mild mitral valve regurgitation. 10. There is mild tricuspid valve regurgitation. 11. No pulmonary hypertension, estimated pulmonary arterial systolic pressure is 25 mmHg. 12. There is trace pulmonic regurgitation. Left Ventricle E/e' 12 is mildly elevated. Left ventricular chamber dimension is normal. Left ventricular systolic function is normal, estimated at 60-65. The left ventricular diastolic function is grade II diastolic dysfunction. Right Ventricle Right ventricular chamber dimension is normal. Right ventricular systolic function is normal and with normal TAPSE 1.9 cm. Left Atria Left atrial chamber dimension is mildly enlarged. Right Atria Right atrial chamber dimension is normal. Aortic Valve The aortic valve is trileaflet. There is mild aortic valve sclerosis. There is no aortic valve stenosis. There is trace aortic valve regurgitation. Pulmonic Valve There is trace pulmonic regurgitation. Mitral Valve The mitral valve has a moderately calcified annulus. There is no mitral valve stenosis. There is mild mitral valve regurgitation. Tricuspid Valve There is mild tricuspid valve regurgitation. No pulmonary hypertension, estimated pulmonary arterial systolic pressure is 25 mmHg. Pericardium/Pleural There is no pericardial effusion. Inferior Vena Cava Normal inferior vena cava with >50% collapse upon inspiration consistent with normal right atrial pressure, 5 mmHg. Aorta The aortic root size at the sinus of Valsalva is normal. Left Ventricular Outflow Tract Name Value Normal LVOT 2D LVOT Diameter 2.0 cm LVOT Doppler LVOT Peak Velocity 144 cm/s LVOT Peak Gradient 8 mmHg LVOT Mean Gradient 4 mmHg LVOT VTI 27 cm LVOT VTI/AV VTI Ratio 0.7 LVOT Stroke Volume 83 ml LVOT CO 6.0 l/min LVOT CI 3.9 l/min/m2 Pulmonic Valve Name Value Normal RVOT Doppler RVOT Peak Velocity 66 cm/s RVOT Peak Gradient 2 mmHg PV Doppler PV Peak Velocity 102 cm/s PV Peak Gradient 4 mmHg Mitral Valve Name Value Normal MV Diastolic Function MV E Peak Velocity 103 cm/s MV A Peak Velocity 86 cm/s MV E/A 1.2 MV Decel Time (PW) 296 ms MV Annular TDI MV E/e' (Septal) 14.9 MV E/e' (Lateral) 11.1 MV E/e' (Average) 13.0 Tricuspid Valve Name Value Normal TV Regurgitation Doppler TR Peak Velocity 223 cm/s TR Peak Gradient 20 mmHg Estimated PAP/RSVP RA Pressure 5 mmHg <=5 PA Systolic Pressure 25 mmHg <36 RV Systolic Pressure 25 mmHg <36 TV Annular TDI TV Lateral Megan s' Velocity 12.8 cm/s >=9.5 Aorta Name Value Normal Ascending Aorta Ao Root Diameter (MM) 5.0 cm Ao Root Diam Index (MM) 3.3 cm/m2 Aortic Valve Name Value Normal AV Doppler AV Peak Velocity 185 cm/s AV Peak Gradient 14 mmHg AV Mean Gradient 8 mmHg AV VTI 38 cm AV Area (Cont Eq VTI) 2.2 cm2 >=3.0 AV Area (Cont Eq Mirza) 2.4 cm2 AV DI (Mirza) 0.78 AV Regurgitation 2D LVOT Area 3.1 cm2 Ventricles Name Value Normal LV Dimensions 2D/MM IVS Diastolic Thickness (2D) 1.0 cm 0.6-1.0 LVID Diastole (2D) 4.3 cm 3.8-5.2 LVIW Diastolic Thickness (2D) 1.0 cm 0.6-0.9 LVID Systole (2D) 3.0 cm 2.2-3.5 LVOT Diameter 2.0 cm LV Mass (2D Cubed) 141.81 g 67.00-162.00 LV Mass Index (2D Cubed) 93 g/m2 43-95 Relative Wall Thickness (2D) 0.47 <=0.42 LV Fractional Shortening/Ejection Fraction 2D/MM LV Fractional Shortening (2D) 29 % 27-45 LV EF (2D Teichholz) 56 % LV Diastolic Volume (4C MOD) 91 ml LV EF (4C MOD) 62 % LV Diastolic Volume (2C MOD) 88 ml LV EF (2C MOD) 67 % LV Diastolic Volume (BP MOD) 92 ml 46-106 LV Diastolic Volume Index (BP MOD) 61 ml/m2 29-61 LV Systolic Volume (BP MOD) 31 ml 14-42 LV Systolic Volume Index (BP MOD) 21 ml/m2 8-24 LV EF (BP MOD) 66 % 54-74 LV Diastolic Length (4C) 7.7 cm LV Systolic Length (4C) 6.0 cm LV Stroke Volume (4C MOD) 56 ml Atria Name Value Normal LA Dimensions LA Volume (4C A-L) 48 ml LA Volume (BP A-L) 57 ml RA Dimensions RA Area (4C) 9.4 cm2 <=18.0 Report Signatures
[2024-10-22 16:35] LABS: Alanine Aminotransferase 23 U/L (6-35); Albumin Level 3.4 g/dL (3.5-5.1); Alkaline Phosphatase 154 U/L (38-126); Anion Gap 8 mmol/L (4-12); Aspartate Amino Transferase 106 U/L (14-36); Bilirubin,Total 2.4 mg/dL (0.2-1.3); Blood Urea Nitrogen 7 mg/dL (7-17); Calcium 8.8 mg/dL (8.4-10.2); Carbon Dioxide 20 mmol/L (22-30); Chloride 107 mmol/L (98-107); Estimated Glomerular Filt Rate > 60; Glucose 99 mg/dL (65-110); Potassium 3.1 mmol/L (3.4-5.0); Sodium 135 mmol/L (137-145)
== END 2024-10-22 14:36 | disposition home or self-care (01) ==
LOC: ANHCARD 14:36
PROVIDERS: PCP Nurse Practitioner Family; Visit Provider Nurse Practitioner Family
DX: R01.1 Cardiac murmur, unspecified (principal); I08.3 Combined rheumatic disorders of mitral, aortic and tricuspid valves; D50.9 Iron deficiency anemia, unspecified; I10 Essential (primary) hypertension; F10.10 Alcohol abuse, uncomplicated; Z13.1 Encounter for screening for diabetes mellitus
CPT/HCPCS: 36415; 80053; 82728; 93306

== ENCOUNTER 2024-11-25 13:50 | Outpatient (CLI) | payer OTHER, SELFPAY ==
[2024-11-25 14:44] LABS: Alanine Aminotransferase 20 U/L (6-35); Albumin Level 3.6 g/dL (3.5-5.1); Alkaline Phosphatase 156 U/L (38-126); Anion Gap 9 mmol/L (4-12); Aspartate Amino Transferase 60 U/L (14-36); Blood Urea Nitrogen 3 mg/dL (7-17); Calcium 8.9 mg/dL (8.4-10.2); Carbon Dioxide 20 mmol/L (22-30); Chloride 110 mmol/L (98-107); Estimated Glomerular Filt Rate > 60; Glucose 85 mg/dL (65-110); Iron 121 ug/dL (37-170); Potassium 3.4 mmol/L (3.4-5.0); Sodium 139 mmol/L (137-145); Total Protein 7.7 g/dL (6.3-8.2)
[2024-11-25 14:50] LABS: Immunoglobulin G 1916 mg/dL (700-1600)
[2024-11-25 14:58] LABS: Percent Iron Saturation 49 % (20-50)
[2024-11-25 15:15] LABS: Hepatitis B Surface Antigen Negative (Negative)
[2024-11-25 15:21] LABS: HAV RESULT Negative (Negative); Hepatitis B Core IgM Result Negative (Negative)
[2024-11-25 15:33] LABS: Hepatitis C Virus Antibody Negative (Negative)
[2024-11-25 15:56] LABS: Folic Acid > 20.0 ng/mL (2.76->20)
[2024-11-27 11:48] LABS: Alpha-1-Antitrypsin, QN. 172 mg/dL (83-199)
[2024-11-28 09:33] LABS: Anti Nuclear Antibody Pattern Cytoplasmic; Anti Nuclear Antibody Titer 1:40 titer
[2024-11-28 21:48] LABS: Actin Antibody (IgG). <20 U (<20)
[2024-11-29 16:14] LABS: PEth 16:0/18:1 (PLPEth) NEGATIVE ng/mL (<20); PEth 16:0/18:2 (PLPEth) NEGATIVE ng/mL (<20)
== END 2024-11-25 13:51 | disposition home or self-care (01) ==
LOC: ANHLAB 13:52
PROVIDERS: PCP Nurse Practitioner Family; Visit Provider Nurse Practitioner
DX: R18.8 Other ascites (principal); R79.89 Other specified abnormal findings of blood chemistry; R14.0 Abdominal distension (gaseous); R16.0 Hepatomegaly, not elsewhere classified; R19.7 Diarrhea, unspecified; R10.9 Unspecified abdominal pain
CPT/HCPCS: 36415; 80053; 80074; 80321; 82103; 82105; 82248; 82607; 82746; 82784; 83540; 83550; 86038; 86039; 86364; G0480

== ENCOUNTER 2024-11-27 12:20 | Outpatient (CLI) | payer OTHER, SELFPAY ==
[2024-11-27 13:02] LABS: Hematocrit 32.5 % (37.0-47.0); Hemoglobin 10.5 g/dL (12.0-15.0); Mean Corpuscular HGB Conc 32.3 g/dl (32-36); Mean Corpuscular Hemoglobin 31.1 pg (26-34); Mean Corpuscular Volume 96.2 fl (80-100); Mean Platelet Volume 9.3 fl (7.4-10.4); Platelet Count Result 166 k/mm3 (150-375); Red Blood Count 3.38 M/mm3 (4.2-5.4); Red Cell Distribution Width 15.9 % (11.5-14.5)
[2024-11-27 13:12] LABS: INR 1.3; Prothrombin Time 15.9 Seconds (11.1-14.7)
[2024-11-27 13:23] LABS: Lipase 30 U/L (23-300)
[2024-11-27 13:30] LABS: Immunoglobulin G 1801 mg/dL (700-1600)
[2024-11-27 14:04] LABS: Hepatitis B Surface Antigen Negative (Negative)
[2024-11-28 17:38] LABS: Hepatitis A Antibody Total REACTIVE (NON-REACTIVE); Hepatitis B Core Ab Total NON-REACTIVE (NON-REACTIVE)
[2024-11-28 22:24] LABS: Ceruloplasmin. 23 mg/dL (14-48)
[2024-12-02 20:08] LABS: Mitochondrial (M2) Ab (IgG). <20.0 U
[2024-12-03 11:24] LABS: LKM 1 Antibody. <=20.0 U (<=20.0)
[2024-12-05 00:44] LABS: ALT 10 U/L (6-29); Alpha-2-Macroglobulin 214 mg/dL (106-279); Apolipoprotein A1 146 mg/dL (101-198); Fibrosis Score 0.73; Fibrosis Stage F3-F4; GGT 84 U/L (3-70); Haptoglobin 21 mg/dL (43-212); Necroinflammat Act Grade A0; Total Bilirubin 1.4 mg/dL (0.2-1.2)
== END 2024-11-27 12:21 | disposition home or self-care (01) ==
LOC: ANHLAB 12:21
PROVIDERS: PCP Nurse Practitioner Family; Visit Provider Nurse Practitioner
DX: R18.8 Other ascites (principal); R79.89 Other specified abnormal findings of blood chemistry; R14.0 Abdominal distension (gaseous); R16.0 Hepatomegaly, not elsewhere classified; R19.7 Diarrhea, unspecified; R10.9 Unspecified abdominal pain
CPT/HCPCS: 36415; 81596; 82390; 82728; 82784; 83520; 83690; 85027; 85610; 86376; 86704; 86708; 87340

== ENCOUNTER 2024-12-03 14:38 | Outpatient (CLI) | payer OTHER, SELFPAY ==
--- NOTE | ~2024-12-03 | CT_ITS ---
CT of the Abdomen and Pelvis: Indication: Ascites, abdominal pain Technique: 2.5 mm axial scans were obtained through the abdomen and pelvis following intravenous adm inistration of 100 cc of Omnipaque 350. Dose reduction technique was used on this scan by utilizing a utomated exposure control and iterative reconstruction technique. The dose-length product (DLP) was 3 48.80 mGy-cm. COMPARISON: 10/08/2022 Findings: Scans through the lung bases are unremarkable. Liver measures 20.2 cm in length. No focal hepatic mass evident. The spleen, pancreas, adrenals and k idneys are within normal limits. Cholecystectomy clips are present. No evidence of aortic aneurysm. No lymphadenopathy. There is extensive wall thickening of large and small bowel, which may represent bowel edema related to ascites. No bowel obstruction. Images through the pelvis were performed. Urinary bladder unremarkable. IUD in place. No adnexal mass seen. Large amount of abdominopelvic ascites present. Impression: Large amount of abdominopelvic ascites. Extensive wall thickening of large and small bowel, probably reflecting bowel wall edema related to t he presence of ascites. Hepatomegaly. Reviewed, dictated and finalized at location M. Impression: Large amount of abdominopelvic ascites. Extensive wall thickening of large and small bowel, probably reflecting bowel w all edema related to the presence of ascites. Hepatomegaly.
--- OUTSIDE RECORDS SUMMARY | 2024-12-03 14:41 | XMS_ITS | Data Portability ---
Author Organization [place] [facility], Main Office Address [address] [place] [address] Assessment Encounter Date Assessment Date Assessment LastModified by Organization Details LastModified Time 10/17/2022 10/17/2022 I have reconciled the patient's medications post their discharge from inpatient facility. Not available 10/17/2022 17:45:40 Plan of Treatment Reminders Order Date Submit Date Provider Last Modified By Organization Details Last Modified Time Details Appointments None recorded. Lab amylase + lipase, serum 2022 023 [email or web address] [facility] (Lab), [address] [place], [address], 3 17:32:37 CMP, serum or plasma 2022 023 [facility] (Lab), [address] [place], [address], 3 15:55:53 vitamin D, 25-hydroxy, total, serum 2022 023 [facility] (Lab), [address] [place], [address], 3 09:48:14 vitamin B12 + folate, serum or blood 2022 023 [facility] (Lab), [address] [place], [address], 3 09:48:14 magnesium, serum or plasma 2022 023 [facility] (Lab), [address] [place], [address], 3 09:48:15 lipid panel, serum 2022 023 [facility] (Lab), [address] [place], [address], 3 09:48:14 iron + TIBC + ferritin, serum 2022 023 [facility] (Lab), [address] [place], [address], 3 09:48:14 TSH, serum or plasma 2022 023 [facility] (Lab), [address] [place], [address], 3 09:48:15 CBC w/ auto diff 2022 023 [facility] (Lab), [address] [place], [address], 3 09:48:14 CMP, serum or plasma 2022 023 [facility] (Lab), [address] [place], [address], 3 09:48:14 glycohemogl obin, total, blood 2022 023 [facility] (Lab), [address] [place], [address], 3 09:48:14 Referral None recorded. Procedures None recorded. Surgeries None recorded. Imaging MAMMO, screening, digital, bilateral 2022 023 [email or web address] [facility], [address], [address] [address], [place], [address], 3 10:50:57 XR, chest 2022 023 JULIA Not available 12:56:19 electrocard iogram 2022 023 JULIA Not available 15:36:05 Medication Orders methocarbam ol 500 mg tablet 2022 023 [facility], [address] [place], [address], 3 14:57:04 atenolol 50 mg tablet 2022 023 [facility], [address] [place], [address], 3 14:57:04 Lexapro 20 mg tablet 2022 023 [facility], [address] [place], [address], 3 14:57:03 losartan 100 mg tablet 2022 023 [facility], [address] [place], [address], 3 17:39:09 hydrochloro thiazide 12.5 mg capsule 2022 023 [facility] #2510, [address] [place], [address], 3 17:39:08 hydroxyzine HCl 25 mg tablet 2022 023 [facility], [address] [place], [address], 3 17:39:08 losartan 50 mg tablet 2022 023 [facility]armacy #2510, [address] [place], [address], 3 17:44:40 hydrochloro thiazide 12.5 mg capsule 2022 023 [facility]3357, [address] [place], [address], 15:17:11 Patient TargetsNo targets recorded. Patient Instructions Encounter Date Encounter Id Patient Instructions Last Modified By Organization Details Last Modified Time 09/14/2022 [id number] FU in 2 weeks fo r bp, labs, ekg, chest xray. Not available 09/14/2022 15:20:02 10/17/2022 [id number] Thank you for your visit to our [...] Not available 10/17/2022 16:58:55 Homebound Status : Required Home Health Services: Durable Medical Equipment needed: Billing Guidelines CPT code 48789- Transitional Care Management services with moderate medical decision complexity (rpxl-yb-uuxg visit within 14 days of discharge). CPT code 64471- Transitional Care Management services with high medical decision complexity (icvv-nn-fmqw visit within 7 days of discharge). Not available 10/17/2022 16:58:55 11/29/2022 [id number] FU in 2 mo for htn, lipid, depression/anxiet y, back pain Not available 11/29/2022 15:02:11 01/24/2023 [id number] FU in 6 mo for htn, lipid, depression/anxiet y, back pain Not available 01/24/2023 14:35:26 Reason for Referral None Reported. Results Created Date Observation Date Name Description Value Unit Range Abnormal Flag Note LastModifiedBy Organization Detail LastModifiedTime 09/16/19 23 09/15/2022 XR, chest No observ ation record ed. [address], [place], [address], 09/15/2022 17:18:09 09/17/19 23 09/15/2022 elect sami julesgr am No observ ation record ed. [address] (Resp Services) [address] [place] [address] [facility], [place], [address], 09/21/2022 14:34:20 10/09/19 23 10/08/2022 CT, abdom en + pelvi s, w/ contr ast No observ ation record ed. [address] [address], [place], [address], 10/09/2022 16:44:06 10/09/19 23 10/08/2022 US, abdom en, limit ed No observ ation record ed. [address] [address], [place], [address], 10/09/2022 16:44:51 Result Notes None recorded. Problems Name Problem SNOMED Code Status Onset Date Resolution Date Notes Provider Name and Address Organization Details Recorded Time Essential hypertensio n 10029733 Active 2022 Anna Marie Ellis NP [address], [address], [place], [address], [employer] 3 15:04:17 Serum iron above reference range 304030622 Active 2022 Anna Marie Ellis NP [address], [address], [place], [address], [employer] 3 19:52:39 Liver enzymes level above reference range 755558764 Active 2022 Anna Marie Ellis NP [address], [address], [place], [address], [employer] 3 19:52:54 Hyperlipide phyllis 61950801 Active 2022 Anna Marie Ellis NP [address], [address], [place], [address], [employer] 3 19:53:00 Hyperglycem ia 44534983 Active 2022 Anna Marie Ellis NP [address], [address], [place], [address], [employer] 3 19:53:08 Hemochromat osis 979918060 Active 2022 Anna Marie Ellis NP [address], [address], [place], [address], [employer] 3 19:53:53 Anxiety 28798393 Active 2022 Anna Marie Ellis NP [address], [address], [place], [address], [employer] 3 11:30:16 Mixed anxiety and depressive disorder 968389178 Active 2022 Anna Marie Ellis NP [address], [address], [place], [address], [employer] 3 17:20:40 Gastroesoph ageal reflux disease 961284100 Active 2022 Anna Marie Ellis NP [address], [address], [place], [address], [employer] 3 17:29:08 Acute pancreatiti s 689279121 Active 2022 Anna Marie Ellis NP [address], [address], [place], [address], [employer] 3 17:36:34 Bereavement 86494786 Active 2022 Anna Marie Ellis NP [address], [address], [place], [address], [employer] 3 17:59:21 Spasm of back muscles 199784251 Active 2022 Anna Marie Ellis NP [address], [address], [place], [address], [employer] [facility] 14:50:55 Bilateral tinnitus 8046766218644 Active 2022 Anna Marie Ellis NP [address], [address], [place], [address], [employer] [facility] 14:33:11 Problem Notes None recorded. Procedures Surgical History Date Name Laterality Status Provider Name and Address Organization Details Recorded Time 10/18/19 Transitional_Care_M anagement completed Anna Marie Talamantes RN [facility] [employer] [facility] 10/17/2022 16:58:55 06/04/19 Gastric bypass for obesity completed Anna Marie Ellis NP [address], [facility] [address], [place], [address], [employer] [facility] [employer] [facility] 09/14/2022 15:11:10 section completed Anna Marie Talamantes RN [facility] [employer] [facility] 09/14/2022 14:50:55 cholecystectomy completed Anna Marie Talamantes RN [facility] [employer] [facility] 09/14/2022 14:51:09 decompression of ulnar nerve completed Anna Marie Talamantes RN [facility] [employer] [facility] 09/14/2022 14:52:53 Carpal tunnel surgery completed Anna Marie Talamantes RN [facility] [employer] [facility] 09/14/2022 14:53:05 Imaging Results None recorded. Procedure Notes None recorded. Medical Equipment None [...] Address Organization Details Last Updated DateTime 3 69533.1 7 g 31.3 kg/m2 149.86 cm 96 [degF] 86 /min 16 /min 96 % 96 % 210 mm[Hg] 120 mm[Hg] Anna Marie Talamantes RN [facility] [employer] [facility] 3 14:46:15 Date Recorded Body height Body mass index (BMI) Body weight Body temperature Respiratory rate Heart rate Systolic blood pressure Diastolic blood pressure Provider Name and Address Organization Details Last Updated DateTime 3 149.86 cm 31.1 kg/m2 48671.5 7 g 97 [degF] 16 /min 88 /min 170 mm[Hg] 100 mm[Hg] Anna Marie Talamantes RN [facility] [employer] [facility] 3 17:05:26 Date Recorded Body height Body mass index (BMI) Body weight Body temperature Heart rate Oxygen saturation Oxygen saturation in Arterial blood by Pulse oximetry Systolic blood pressure Diastolic blood pressure Provider Name and Address Organization Details Last Updated DateTime 3 149.86 cm 32.1 kg/m2 45073.5 4 g 97.7 [degF] 61 /min 97 % 97 % 171 mm[Hg] 96 mm[Hg] Kristi Ovalle MA [facility] [employer] [facility] 14:33:48 Date Recorded Body height Body mass index (BMI) Body weight Body temperature Respiratory rate Heart rate Oxygen saturation Oxygen saturation in Arterial blood by Pulse oximetry Systolic blood pressure Diastolic blood pressure Provider Name and Address Organization Details Last Updated DateTime 3 149.86 cm 32.5 kg/m2 41873.0 7 g 96.4 [degF] 16 /min 53 /min 97 % 97 % 122 mm[Hg] 76 mm[Hg] Anna Marie Talamantes RN [facility] [employer] [facility] 14:15:55 Social History Question Answer Notes LastModified by Organization Details LastModified Time Tobacco Smoking Status Never Smoker Anna Marie Talamantes RN [facility] [employer] [facility] 01/24/2023 14:10:15 Do You Have An [...] Or The Highest Degree You Have Received? [id number] Information not available 01/24/2023 Have There Been Any Changes To Your Family Or Social Situation? Yes Passed On 09/23/22 Information not available 01/24/2023 Do You Use Insect Repellent Routinely? Yes Information not available 01/24/2023 Where Do You Live? SingleLevelHouse Information not available 01/24/2023 Do You Have A Medical Power Of Personal Development Mentor? No Information not available 01/24/2023 How Many [...] Functional Status Question Answer Note LastModified by Organizat ion Details LastModified Time Do you use [...] anxious, or unable to sleep at night)? [id number] Information not available 01/24/2023 Family History Relationship [...] History Condition Response OTHER # 1 Y DEPRESSION (INCLUDING POST ) Y ANXIETY DISORDER Y HAVE YOU BEEN HOSPITALIZED OR SEEN IN [facility] IN THE PAST YEAR ? Y Gynecological History Statement/Question Response Date of Last Pap Smear Current Control Method IUD Date of Last Colonoscopy Most Recent Mammogram Most Recent Bone Density Obstetrics History GPAL:G 0 P 0 0 0 0 Past Encounters Encounter ID Performer Location Encounter Start Date Encounter Closed Date Diagnosis/Indication Diagnosis SNOMED-CT Code Diagnosis ICD10 Code Diagnosis Note [id number] Anna Marie Ellis NP [address] [address] 09/14/2022 14:35:40 09/14/2022 15:38:36 Essential hypertension 38830732 I10 Losartan 50 mg po daily. HCTZ 12.5 mg po daily. Anemia screening 2038339 07 Z13.0 Diabetes m ellitus screening 576209344 Z13.1 Thyroid di sorder screening 317183836 Z13.29 Hyperlipid emia screening 730953230 Z13.220 Screening for disorder 688165768 Z13.9 Screening mammography of bilateral breasts 6182342296 93845 Z12.31 Mammogram ordered 09/14/22 History of bypass of stomach 763170713 Z98.84 2009. Has been on iron tablets. [id number] Anna Marie Ellis NP [facility] [address] [place] [address] 10/17/2022 16:47:14 10/17/2022 18:05:51 Essential hypertension 70583052 I10 Losartan 50 mg po daily to 100 mg po daily on 10/17/22. HCTZ 12.5 mg po daily. Mixed anxi ety and depressive disorder 713306188 F41.8 lexapro 10 mg po daily. Hydroxyzin e 25 mg po tid prn. Gastroesop hageal reflux disease 521168197 K21.9 pantoprazo le 40 mg po daily. will be on for 2 mo.Pancrea titis. Acute pancreatitis 600 K85.80 Amylase/li pase/cmp. If still raised, will refer back to Dr. Yu MATIAS at [facility]. Bereavement 91945655 Z63 .4 Mourning sudden of . Plans to call [employer] and if needed, I will give referral and FMLA. [id number] Anna Marie Ellis NP [address] [address] 11/29/2022 14:20:11 11/29/2022 15:05:09 Mixed anxiety and depressive disorder 082340811 F41.8 Lexapro 20 mg po daily (increased dose from 10 mg 11/29/22). Hydroxyzin e 25 mg po tid prn. Gastroesop hageal reflux disease 039241788 K21.9 no further issues. Not on meds as of 11/29/22Pan creatitis. Hyperlipidemia 85705194 E78.5 low fat diet advisedlab s 09/2022 Essential hypertension 25394561 I10 Losartan 100 mg po daily. HCTZ 12.5 mg po daily.Hulett olol 50 mg po daily added on 11/29/22 Bereavement 48082736 Z63 .4 Mourning sudden of . Plans to call [employer] and if needed, I will give referral and FMLA. Spasm of back muscles 20 9792642 M62.830 methocarba mol 500 mg po bid prn. [id number] Anna Marie Ellis NP [address] [address] 01/24/2023 14:04:33 01/24/2023 14:45:33 Essential hypertension 57820937 I10 Losartan 100 mg po daily. HCTZ 12.5 mg po daily.Hulett olol 50 mg po daily added on 11/29/22 Mixed anxi ety and depressive disorder 918487388 F41.8 Lexapro 20 mg po daily (increased dose from 10 mg 11/29/22). Hydroxyzin e 25 mg po tid prn. Gastroesop hageal reflux disease 745374010 K21.9 no further issues. Not on meds as of 11/29/22Pan creatitis. Hyperlipidemia 78789533 E78.5 low fat diet advisedlab s 09/2022 Bereavement 04877401 Z63 .4 Mourning sudden of . Plans to call [employer] and if needed, I will give referral and FMLA. Spasm of back muscles 20 1178949 M62.830 methocarba mol 500 mg po bid prn. Bilateral tinnitus 52849 10777 102 H93.13 worked for the [employer] and likely having hearing loss. Health Concerns Section Related Observation LastModified by Organization Detai ls LastModified Time None Recorded Concern Status LastModified by Organization Details LastModified Time None Recorded Advance Directives Directive N: Payers Insurance Date Sequence Insurance Name Policy Number Policy Gambino Covered Member ID Gambino Member ID Guarantor Name 01/21/2023 1 [employer] (POS II) [id number] Leonard Hanson [id number] Rima Hanson Notes Date Note Type Note Provider Name and Address Organization Details Recorded Time 09/14/2022 text/html Here for new patient appt.BP has been high and needing checked out. HTN- has been up at urgent care. Was up at in May and Jul. Caffeine weaned off. Salt- moderate. 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 Hasn't been to [facility] since 2019. Mirena due to be out. No periods since having Mirena.[employer] vision, reading and distance glasses.[employer] dental. 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 [employer]. Anna Marie Ellis, [employer] [address] [facility], [facility] [address], [place], [address], [facility] 09/14/2022 15:31:37 10/17/2022 text/html Here with STEPHANIE. [...] counselor. Anna Marie Ellis NP [address], [address], [place], [address], [employer] [facility] 10/17/2022 18:00:17 11/29/2022 text/html Here for 1 mo check up. Has been back to work on [employer]. Lexapro helps, hydroxyzine helps. At least when [...] if possible. Anna Marie Ellis NP [address] [employer] [address], [place], [address], [employer] [facility] 11/29/2022 15:04:47 01/24/2023 text/html Here for 2 [...] pad helps. Anna Marie Ellis NP [address] [employer] [address], [place], [address], [employer] [facility] 01/24/2023 14:40:27 OBGyn Episode No OBEpisode recorded.
--- OUTSIDE RECORDS SUMMARY | 2024-12-03 14:41 | XMS_ITS | Clinical Summary ---
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
== END 2024-12-03 14:39 | disposition home or self-care (01) ==
LOC: ANHIMG 14:39
PROVIDERS: PCP Nurse Practitioner Family; Visit Provider Nurse Practitioner
DX: R16.0 Hepatomegaly, not elsewhere classified (principal); R18.8 Other ascites; R79.89 Other specified abnormal findings of blood chemistry; R10.9 Unspecified abdominal pain
CPT/HCPCS: 74177; Q9967

== ENCOUNTER 2024-12-16 12:18 | Outpatient (CLI) | payer OTHER, SELFPAY ==
--- OUTSIDE RECORDS SUMMARY | 2024-12-16 12:24 | XMS_ITS | Clinical Summary ---
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
--- OUTSIDE RECORDS SUMMARY | 2024-12-16 12:24 | XMS_ITS | Data Portability ---
Author Organization [place] - [facility] [employer], Main Office Address [address] [place] [address] Assessment Encounter Date Assessment Date Assessment LastModified by Organization Details LastModified Time 10/17/2022 10/17/2022 I have reconciled the patient's medications post their discharge from inpatient facility. Not available 10/17/2022 17:45:40 Plan of Treatment Reminders Order Date Submit Date Provider Last Modified By Organization Details Last Modified Time Details Appointments None recorded. Lab amylase + lipase, serum 2022 023 [email or web address] [facility] (Lab), [address] [place], [address], 3 17:32:37 CMP, serum or plasma 2022 023 [facility] (Lab), [address] [place], [address], 3 15:55:53 vitamin D, 25-hydroxy, total, serum 2022 023 [facility] (Lab), [address] [place], [address], 3 09:48:14 vitamin B12 + folate, serum or blood 2022 023 [facility] (Lab), [address] [place], [address], 3 09:48:14 magnesium, serum or plasma 2022 023 [facility] (Lab), [address] [place], [address], 3 09:48:15 lipid panel, serum 2022 023 [facility] (Lab), [address] [place], [address], 3 09:48:14 iron + TIBC + ferritin, serum 2022 023 [facility] (Lab), [address] [place], [address], 3 09:48:14 TSH, serum or plasma 2022 023 [facility] (Lab), [address] [place], [address], 3 09:48:15 CBC w/ auto diff 2022 023 [facility] (Lab), [address] [place], [address], 3 09:48:14 CMP, serum or plasma 2022 023 [facility] (Lab), [address] [place], [address], 3 09:48:14 glycohemogl obin, total, blood 2022 023 [facility] (Lab), [address] [place], [address], 3 09:48:14 Referral None recorded. Procedures None recorded. Surgeries None recorded. Imaging MAMMO, screening, digital, bilateral 2022 023 [email or web address] [facility], [address] [address], [place], [address], 3 10:50:57 XR, chest 2022 023 JULIA Not available 12:56:19 electrocard iogram 2022 023 JULIA Not available 15:36:05 Medication Orders methocarbam ol 500 mg tablet 2022 023 [facility] [address] [place], [address], 3 14:57:04 atenolol 50 mg tablet 2022 023 [facility], [address] [place], [address], 3 14:57:04 Lexapro 20 mg tablet 2022 023 [facility] [address] [place], [address], 3 14:57:03 losartan 100 mg tablet 2022 023 [facility] [address] [place], [address], 3 17:39:09 hydrochloro thiazide 12.5 mg capsule 2022 023 [facility]/Pharmacy #2510, [address] [place], [address], 3 17:39:08 hydroxyzine HCl 25 mg tablet 2022 023 [facility]acy #2510, [address] [place], [address], 3 17:39:08 losartan 50 mg tablet 2022 023 [facility]/Pharmacy #2510, [address] [place], [address], 3 17:44:40 hydrochloro thiazide 12.5 mg capsule 2022 023 [facility]/Pharmacy #3544, [address] [place], [address], 15:17:11 Patient TargetsNo targets recorded. Patient Instructions Encounter Date Encounter Id Patient Instructions Last Modified By Organization Details Last Modified Time 09/14/2022 [id number] FU in 2 weeks fo r bp, labs, ekg, chest xray. Not available 09/14/2022 15:20:02 10/17/2022 [id number] Thank you for your visit to our [...] Medical Equipment needed: Billing Guidelines CPT code 69412- Transitional Care Management services with moderate medical decision complexity (zarg-kx-gubq visit within 14 days of discharge). CPT code 40952- Transitional Care Management services with high medical decision complexity (qsoi-op-emzl visit within 7 days of discharge). Not available 10/17/2022 16:58:55 11/29/2022 [id number] FU in 2 mo for htn, lipid, depression/anxiet y, back pain Not available 11/29/2022 15:02:11 01/24/2023 [id number] FU in 6 mo for htn, lipid, depression/anxiet y, back pain Not available 01/24/2023 14:35:26 Reason for Referral None Reported. Results Created Date Observation Date Name Description Value Unit Range Abnormal Flag Note LastModifiedBy Organization Detail LastModifiedTime 09/16/19 23 09/15/2022 XR, chest No observ ation record ed. [address], [place], [address], 09/15/2022 17:18:09 09/17/19 23 09/15/2022 elect sami julesgr am No observ ation record ed. [address] (Resp Services) [address] [place] [address] [facility], [place], [address], 09/21/2022 14:34:20 10/09/19 23 10/08/2022 CT, abdom en + pelvi s, w/ contr ast No observ ation record ed. [address] [address], [place], [address], 10/09/2022 16:44:06 10/09/19 23 10/08/2022 US, abdom en, limit ed No observ ation record ed. [address] [address], [place], [address], 10/09/2022 16:44:51 Result Notes None recorded. Problems Name Problem SNOMED Code Status Onset Date Resolution Date Notes Provider Name and Address Organization Details Recorded Time Essential hypertensio n 39637334 Active 2022 Anna Marie Ellis NP [address], [address], [place], [address], [employer] 3 15:04:17 Serum iron above reference range 336526017 Active 2022 Anna Marie lElis NP [address], [address], [place], [address], [employer] 3 19:52:39 Liver enzymes level above reference range 246621411 Active 2022 Anna Marie Ellis NP [address], [address], [place], [address], [employer] 3 19:52:54 Hyperlipide phyllis 90970348 Active 2022 Anna Marie Ellis NP [address], [address], [place], [address], [employer] 3 19:53:00 Hyperglycem ia 97722956 Active 2022 Anna Marie Ellis NP [address], [address], [place], [address], [employer] 3 19:53:08 Hemochromat osis 505411526 Active 2022 Anna Marie Ellis NP [address], [address], [place], [address], [employer] 3 19:53:53 Anxiety 50183027 Active 2022 Anna Marie Ellis NP [address], [address], [place], [address], [employer] 3 11:30:16 Mixed anxiety and depressive disorder 581575512 Active 2022 Anna Marie Ellis NP [address], [address], [place], [address], [employer] 3 17:20:40 Gastroesoph ageal reflux disease 665978231 Active 2022 Anna Marie Ellis NP [address], [address], [place], [address], [employer] 3 17:29:08 Acute pancreatiti s 662202311 Active 2022 Anna Marie Ellis NP [address], [address], [place], [address], [employer] 3 17:36:34 Bereavement 22314995 Active 2022 Anna Marie Ellsi NP [address], [address], [place], [address], [employer] 3 17:59:21 Spasm of back muscles 424220443 Active 2022 Anna Marie Ellis NP [address], [place], [address], [employer] [facility] 14:50:55 Bilateral tinnitus 7288786954211 Active 2022 Anna Marie Ellis NP [address], [address], [place], [address], [employer] [facility] 14:33:11 Problem Notes None recorded. Procedures Surgical History Date Name Laterality Status Provider Name and Address Organization Details Recorded Time 10/18/19 Transitional_Care_M anagement completed Anna Marie Talamantes RN [facility] [employer] [facility] 10/17/2022 16:58:55 06/04/19 Gastric bypass for obesity completed Anna Marie Ellis NP [address] [facility] [address], [place], [address], [employer] [facility] [employer] [facility] 09/14/2022 15:11:10 section completed Anna Marie Talamantes RN [facility] [employer] [facility] 09/14/2022 14:50:55 cholecystectomy completed Anna Marie Talamantes RN [facility] [employer] [facility] 09/14/2022 14:51:09 decompression of ulnar nerve completed Anna Marie Talamantes RN [facility] [employer] [facility] 09/14/2022 14:52:53 Carpal tunnel surgery completed Anna Marie Talamantes RN [facility] [employer] [facility] 09/14/2022 14:53:05 Imaging Results None recorded. Procedure [...] in Arterial blood by Pulse oximetry Systolic And Diastolic Provider Name and Address Organization Details Last Updated DateTime 3 93618.1 7 g 31.3 kg/m2 149.86 cm 96 [degF] 86 /min 16 /min 96 % 96 % 210/120 mm[Hg] Anna Marie Talamantes RN [facility] [employer] 3 14:46:15 Date Recorded Body height Body mass index (BMI) Body weight Body temperature Respiratory rate Heart rate Systolic And Diastolic Provider Name and Address Organization Details Last Updated DateTime 3 149.86 cm 31.1 kg/m2 66229.5 7 g 97 [degF] 16 /min 88 /min 170/100 mm[Hg] Anna Marie Talamantes RN [facility] [employer] [facility] 3 17:05:26 Date Recorded Body height Body mass index (BMI) Body weight Body temperature Heart rate Oxygen saturation Oxygen saturation in Arterial blood by Pulse oximetry Systolic And Diastolic Provider Name and Address Organization Details Last Updated DateTime 3 149.86 cm 32.1 kg/m2 56248.5 4 g 97.7 [degF] 61 /min 97 % 97 % 171/96 mm[Hg] Kristi Ovalle MA [facility] [employer] [facility] 14:33:48 Date Recorded Body height Body mass index (BMI) Body weight Body temperature Respiratory rate Heart rate Oxygen saturation Oxygen saturation in Arterial blood by Pulse oximetry Systolic And Diastolic Provider Name and Address Organization Details Last Updated DateTime 3 149.86 cm 32.5 kg/m2 34296.0 7 g 96.4 [degF] 16 /min 53 /min 97 % 97 % 122/76 mm[Hg] Anna Marie Talamantes RN [facility] [employer] [facility] 14:15:55 Social History Question Answer Notes LastModified by Organization Details LastModified Time Tobacco Smoking Status Never Smoker Anna Marie Talamantes RN [facility] [employer] [facility] 01/24/2023 14:10:15 Do You Have An Advance [...] Or The Highest Degree You Have Received? [id number] Information not available 01/24/2023 Have There Been Any Changes To Your Family Or Social Situation? Yes Passed On 09/23/22 Information not available 01/24/2023 Do You Use Insect Repellent Routinely? Yes Information not available 01/24/2023 Where Do You Live? SingleLevelHouse Information not available 01/24/2023 Do You Have A Medical Power Of Inside Sales Director? No Information not available 01/24/2023 How Many [...] anxious, or unable to sleep at night)? [id number] Information not available 01/24/2023 Family History Relationship [...] HAVE YOU BEEN HOSPITALIZED OR SEEN IN [facility] IN THE PAST YEAR ? Y Gynecological History Statement/Question Response Date of Last Pap Smear Current Control Method IUD Date of Last Colonoscopy Most Recent Mammogram Most Recent Bone Density Obstetrics History GPAL:G 0 P 0 0 0 0 Past Encounters Encounter ID Performer Location Encounter Start Date Encounter Closed Date Diagnosis/Indication Diagnosis SNOMED-CT Code Diagnosis ICD10 Code Diagnosis Note [id number] Anna Marie Ellis NP [address] [address] 09/14/2022 14:35:40 09/14/2022 15:38:36 Essential hypertension 79915620 I10 Losartan 50 mg po daily. HCTZ 12.5 mg po daily. Anemia screening 4826894 07 Z13.0 Diabetes m ellitus screening 308214631 Z13.1 Thyroid di sorder screening 247436908 Z13.29 Hyperlipid emia screening 127030690 Z13.220 Screening for disorder 076705387 Z13.9 Screening mammography of bilateral breasts 7924162083 04260 Z12.31 Mammogram ordered 09/14/22 History of bypass of stomach 660841725 Z98.84 2009. Has been on iron tablets. [id number] Anna Marie Ellis NP [facility] [address] [place] [address] 10/17/2022 16:47:14 10/17/2022 18:05:51 Essential hypertension 68955999 I10 Losartan 50 mg po daily to 100 mg po daily on 10/17/22. HCTZ 12.5 mg po daily. Mixed anxi ety and depressive disorder 553999628 F41.8 lexapro 10 mg po daily. Hydroxyzin e 25 mg po tid prn. Gastroesop hageal reflux disease 481123485 K21.9 pantoprazo le 40 mg po daily. will be on for 2 mo.Pancrea titis. Acute pancreatitis 44016 6007 K85.80 Amylase/li pase/cmp. If still raised, will refer back to Dr. Yu MATIAS at [facility]. Bereavement 29190616 Z63 .4 Mourning sudden of . Plans to call [employer] and if needed, I will give referral and FMLA. [id number] Anna Marie Ellis NP [address] [address] 11/29/2022 14:20:11 11/29/2022 15:05:09 Mixed anxiety and depressive disorder 332824442 F41.8 Lexapro 20 mg po daily (increased dose from 10 mg 11/29/22). Hydroxyzin e 25 mg po tid prn. Gastroesop hageal reflux disease 063116499 K21.9 no further issues. Not on meds as of 11/29/22Pan creatitis. Hyperlipidemia 95507734 E78.5 low fat diet advised[facility] s 09/2022 Essential hypertension 24479500 I10 Losartan 100 mg po daily. HCTZ 12.5 mg po daily.[place] olol 50 mg po daily added on 11/29/22 Bereavement 84142035 Z63 .4 Mourning sudden of . Plans to call [employer] and if needed, I will give referral and FMLA. Spasm of back muscles 20 4937656 M62.830 methocarba mol 500 mg po bid prn. [id number] Anna Marie Ellis NP [address] [address] 01/24/2023 14:04:33 01/24/2023 14:45:33 Essential hypertension 71598266 I10 Losartan 100 mg po daily. HCTZ 12.5 mg po daily.[place] olol 50 mg po daily added on 11/29/22 Mixed anxi ety and depressive disorder 231555158 F41.8 Lexapro 20 mg po daily (increased dose from 10 mg 11/29/22). Hydroxyzin e 25 mg po tid prn. Gastroesop hageal reflux disease 214380892 K21.9 no further issues. Not on meds as of 11/29/22Pan creatitis. Hyperlipidemia 56759794 E78.5 low fat diet advised[facility] s 09/2022 Bereavement 98774680 Z63 .4 Mourning sudden of . Plans to call [employer] and if needed, I will give referral and FMLA. Spasm of back muscles 20 2313336 M62.830 methocarba mol 500 mg po bid prn. Bilateral tinnitus 58156 61304 102 H93.13 worked for the [employer] and likely having hearing loss. Health Concerns Section Related Observation LastModified by Organization Detai ls LastModified Time None Recorded Concern Status LastModified by Organization Details LastModified Time None Recorded Advance Directives Directive N: Payers Insurance Date Sequence Insurance Name Policy Number Policy Gambino Covered Member ID Gambino Member ID Guarantor Name 01/21/2023 1 [employer] (POS II) [id number] Leonard Hanson [id number] Rima Hanson Notes Date Note Type Note Provider Name and Address Organization Details Recorded Time 09/14/2022 text/html Here for new patient appt.BP has been high and needing checked out. HTN- has been up at urgent care. Was up at in May and Jul. Caffeine weaned off. Salt- moderate. 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 Hasn't been to [facility] since 2019. Mirena due to be out. No periods since having Mirena.[employer] vision, reading and distance glasses.[employer] dental. 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 Anna Marie Ellis NP [address] [facility] [address], [place], [address], [facility] [employer] 09/14/2022 15:31:37 10/17/2022 text/html Here with STEPHANIE. [...] Ellis NP [address], [place], [address], [employer] 10/17/2022 18:00:17 11/29/2022 text/html Here for 1 mo check up. Has been back to work on [employer]. Lexapro helps, hydroxyzine helps. At least when [...] Ellis NP [address], [address], [place], [address], [employer] 11/29/2022 15:04:47 01/24/2023 text/html Here for 2 [...] Ellis NP [address], [address], [place], [address], [employer] [facility] [employer] 01/24/2023 14:40:27 OBGyn Episode No OBEpisode recorded.
[2024-12-16 13:09] LABS: Albumin Level 3.4 g/dL (3.5-5.1); Anion Gap 9 mmol/L (4-12); Blood Urea Nitrogen 6 mg/dL (7-17); Calcium 8.9 mg/dL (8.4-10.2); Carbon Dioxide 20 mmol/L (22-30); Chloride 106 mmol/L (98-107); Estimated Glomerular Filt Rate > 60; Glucose 100 mg/dL (65-110); Potassium 3.2 mmol/L (3.4-5.0); Sodium 135 mmol/L (137-145)
== END 2024-12-16 12:19 | disposition home or self-care (01) ==
PROVIDERS: PCP Nurse Practitioner Family; Visit Provider Nurse Practitioner
DX: R18.8 Other ascites (principal)
CPT/HCPCS: 36415; 80048; 82040

== ENCOUNTER 2024-12-30 08:53 | Outpatient (CLI) | payer OTHER, SELFPAY ==
--- NOTE | ~2024-12-30 | US_ITS ---
EXAMINATION: US paracentesis abd w/image DATE: 12/30/2024 10:10 INDICATION: Ascites. TECHNIQUE: The procedure and its risks and benefits were discussed with the patient. Potential risks discussed included bleeding and infection. The skin was prepped and draped in sterile fashion. 1% lid ocaine was used for local anesthesia. Under ultrasound guidance, a 5 Fr catheter with trochar was adv anced into the ascites in the right upper quadrant. Fluid was aspirated into vacuum bottles. The cath eter was removed, and a dressing was applied. There were no immediate complications. FINDINGS: Ultrasound images demonstrate ascites and the catheter within the fluid. IMPRESSION: 1. Successful ultrasound-guided paracentesis yielding 650 mL of clear yellowish fluid. Reviewed, dictated and finalized at location A. IMPRESSION: 1. Successful ultrasound-guided paracentesis yielding 650 mL of clear yellowis h fluid.
--- OUTSIDE RECORDS SUMMARY | 2024-12-30 09:05 | XMS_ITS | Clinical Summary ---
Author Organization [facility] Care Team Providers Care Powered Bridge Specialist Name Role Phone Unavailable Primary Care Provider Unavailabl e Social History Tobacco Use Types Packs/Day Years Used Date Smoking Tobacco: Never Assessed Comments Unknown Sex and Gender Information Value Date Recorded Sex Assigned at Not on file Legal Sex Female 12:41 PM [employer] Gender Identity Not on file Sexual Orientation Not on file Plan of Treatment Health Maintenance Due Date Last Done Comments Hepatitis C Virus (HCV) Screening 1971 TdaP Immunization 1971 Hepatitis B Immunization (1 of 3 - 19+ 3-dose series) 1990 Pap Smear 02/15/1992 Cervical Cancer Screening (CCS) 2001 HPV/Cotest 2001 Cologuard 02/15/2016 Colonoscopy 02/15/2016 Colorectal Cancer Screening 02/15/2016 Immunochemical Fecal Occult Blood 02/15/2016 Pneumococcal Immunization (5 0+ years) (1 of 1 - PCV) 2021 Zoster Immunization (1 of 2) 2021 SARS-COV-2 Immunization ( - 2023-25 season) 2024 Influenza Immunization (#1) 2025 Respiratory Syncytial Virus (RSV) Immunization (Adult) (1 - 1-dose 75+ series) 2046 Human Papillomavirus (HPV) Immunization Aged Out No longer eligible b ased on patient's age to complete this topic Meningococcal Immunization (ACWY) Aged Out No longer eligible based on patient's age to complete this topic Rotavirus Immunization Aged Out No lo nger eligible based on patient's age to complete this topic
--- OUTSIDE RECORDS SUMMARY | 2024-12-30 09:05 | XMS_ITS | Data Portability ---
Author Organization [place] [facility] [employer], Main Office Address [address] [place] [address] Assessment Encounter Date Assessment Date Assessment LastModified by Organization Details LastModified Time 10/17/2022 10/17/2022 I have reconciled the patient's medications post their discharge from inpatient facility. Not available 10/17/2022 17:45:40 Plan of Treatment Reminders Order Date Submit Date Provider Last Modified By Organization Details Last Modified Time Details Appointments None recorded. Lab amylase + lipase, serum 2022 023 [email or web address] [facility] (Lab), [address] [place], [address], 3 17:32:37 CMP, serum or plasma 2022 023 [facility] (Lab), [address] [place], [address], 3 15:55:53 vitamin D, 25-hydroxy, total, serum 2022 023 [facility] (Lab), [address] [place], [address], 3 09:48:14 vitamin B12 + folate, serum or blood 2022 023 [facility] (Lab), [address] [place], [address], 3 09:48:14 magnesium, serum or plasma 2022 023 [facility] (Lab), [address] [place], [address], 3 09:48:15 lipid panel, serum 2022 023 [facility] (Lab), [address] [place], [address], 3 09:48:14 iron + TIBC + ferritin, serum 2022 023 [facility] (Lab), [address] [place], [address], 3 09:48:14 TSH, serum or plasma 2022 023 [facility] (Lab), [address] [place], [address], 3 09:48:15 CBC w/ auto diff 2022 023 [facility] (Lab), [address] [place], [address], 3 09:48:14 CMP, serum or plasma 2022 023 [facility] (Lab), [address] [place], [address], 3 09:48:14 glycohemogl obin, total, blood 2022 023 [facility] (Lab), [address] [place], [address], 3 09:48:14 Referral None recorded. Procedures None recorded. Surgeries None recorded. Imaging MAMMO, screening, digital, bilateral 2022 023 [email or web address] [address] [facility], [address], [address] [address], [place], [address], 3 10:50:57 XR, chest 2022 023 JULIA Not available 12:56:19 electrocard iogram 2022 023 JULIA Not available 15:36:05 Medication Orders methocarbam ol 500 mg tablet 2022 023 [facility] [address] [place], [address], 3 14:57:04 atenolol 50 mg tablet 2022 023 [facility] [address] [place], [address], 3 14:57:04 Lexapro 20 mg tablet 2022 023 [facility], [address] [place], [address], 3 14:57:03 losartan 100 mg tablet 2022 023 [facility], [address] [place], [address], 3 17:39:09 hydrochloro thiazide 12.5 mg capsule 2022 023 [facility]/Pharmacy #2510, [address] [place], [address], 3 17:39:08 hydroxyzine HCl 25 mg tablet 2022 023 [facility]/Pharmacy #2510, [address] [place], [address], 3 17:39:08 losartan 50 mg tablet [address] [facility]/Pharmacy #2510, [address] [place], [address], 3 17:44:40 hydrochloro thiazide 12.5 mg capsule 2022 023 [facility]/Pharmacy #9226, [address] [place], [address], 15:17:11 Patient TargetsNo targets recorded. Patient Instructions Encounter Date Encounter Id Patient Instructions Last Modified By Organization Details Last Modified Time 09/14/2022 [id number] FU in 2 weeks fo r bp, labs, ekg, chest xray. Not available 09/14/2022 15:20:02 10/17/2022 [id number] Thank you for your visit to our [...] Medical Equipment needed: Billing Guidelines CPT code 53222- Transitional Care Management services with moderate medical decision complexity (wkmj-wt-ndxr visit within 14 days of discharge). CPT code 04841- Transitional Care Management services with high medical decision complexity (mshk-kl-vhel visit within 7 days of discharge). Not available 10/17/2022 16:58:55 11/29/2022 [id number] FU in 2 mo for htn, lipid, depression/anxiet y, back pain Not available 11/29/2022 15:02:11 01/24/2023 [id number] FU in 6 mo for htn, lipid, depression/anxiet y, back pain Not available 01/24/2023 14:35:26 Reason for Referral None Reported. Results Created Date Observation Date Name Description Value Unit Range Abnormal Flag Note LastModifiedBy Organization Detail LastModifiedTime 09/16/19 23 09/15/2022 XR, chest No observ ation record ed. [address], [place], [address], 09/15/2022 17:18:09 09/17/19 23 09/15/2022 elect sami julesgr am No observ ation record ed. [address] (Resp Services) [address] [place] [address] [facility] [place], [address], 09/21/2022 14:34:20 10/09/19 23 10/08/2022 CT, abdom en + pelvi s, w/ contr ast No observ ation record ed. [address] [address], [place], [address], 10/09/2022 16:44:06 10/09/19 23 10/08/2022 US, abdom en, limit ed No observ ation record ed. [address] [address], [place], [address], 10/09/2022 16:44:51 Result Notes None recorded. Problems Name Problem SNOMED Code Status Onset Date Resolution Date Notes Provider Name and Address Organization Details Recorded Time Essential hypertensio n 34581073 Active 2022 Anna Marie Ellis NP [address], [address], [place], [address], [facility] 3 15:04:17 Serum iron above reference range 673515235 Active 2022 Anna Marie Ellis NP [address], [address], [place], [address], [facility] 3 19:52:39 Liver enzymes level above reference range 585213947 Active 2022 Anna Marie Ellis NP [address], [address], [place], [address], [facility] 3 19:52:54 Hyperlipide phyllis 93314801 Active 2022 Anna Marie Ellis NP [address], [address], [place], [address], [facility] 3 19:53:00 Hyperglycem ia 68698374 Active 2022 Anna Marie Ellis NP [address], [address], [place], [address], [facility] 3 19:53:08 Hemochromat osis 143747117 Active 2022 Anna Marie Ellis NP [address], [address], [place], [address], [facility] 3 19:53:53 Anxiety 32337054 Active 2022 Anna Marie Ellis NP [address], [address], [place], [address], [facility] 3 11:30:16 Mixed anxiety and depressive disorder 598353156 Active 2022 Anna Marie Ellis NP [address], [address], [place], [address], [facility] 3 17:20:40 Gastroesoph ageal reflux disease 648834216 Active 2022 Anna Marie Ellis NP [address], [address], [place], [address], [facility] 3 17:29:08 Acute pancreatiti s 255812843 Active 2022 Anna Marie Ellis NP [address], [address], [place], [address], [facility] 3 17:36:34 Bereavement 31988590 Active 2022 Anna Marie Ellis NP [address], [address], [place], [address], [facility] 3 17:59:21 Spasm of back muscles 389558243 Active 2022 Anna Marie Ellis NP [address], [place], [address], [employer] [facility] 14:50:55 Bilateral tinnitus 6119507846423 Active 2022 Anna Marie Ellis NP [address], [place], [address], [employer] [facility] 14:33:11 Problem Notes None recorded. Procedures Surgical History Date Name Laterality Status Provider Name and Address Organization Details Recorded Time 10/18/19 Transitional_Care_M anagement completed Anna Marie Talamantes RN [facility] [employer] [facility] 10/17/2022 16:58:55 06/04/19 Gastric bypass for obesity completed Anna Marie Ellis NP [address] [facility] [address], [place], [address], [employer] [facility] [employer] [facility] 09/14/2022 15:11:10 section completed Anna Marie Talamantes RN [facility] [employer] [facility] 09/14/2022 14:50:55 cholecystectomy completed Anna Marie Talamantes RN [facility] [employer] [facility] 09/14/2022 14:51:09 decompression of ulnar nerve completed Anna Marie Talamantes RN [facility] [employer] [facility] 09/14/2022 14:52:53 Carpal tunnel surgery completed Anna Marie Talamantes RN [facility] [employer] [facility] 09/14/2022 14:53:05 Imaging Results None [...] verbal numeric rating [Score] - Reported Systolic And Diastolic Provider Name and Address Organization Details Last Updated DateTime 3 28999.1 7 g 31.3 kg/m2 149.86 cm 96 [degF] 86 /min 16 /min 96 % 96 % 0 210/120 mm[Hg] Anna Marie Talamantes RN [facility] [employer] 3 14:46:15 Date Recorded Body height Body mass index (BMI) Body weight Body temperature Respiratory rate Pain severity - 0-10 verbal numeric rating [Score] - Reported Heart rate Systolic And Diastolic Provider Name and Address Organization Details Last Updated DateTime 3 149.86 cm 31.1 kg/m2 88987.5 7 g 97 [degF] 16 /min 4 88 /min 170/100 mm[Hg] Anna Marie Talamantes RN [place] [facility] [employer] [facility] 3 17:05:26 Date Recorded Body height Body mass index (BMI) Body weight Body temperature Heart rate Oxygen saturation Oxygen saturation in Arterial blood by Pulse oximetry Systolic And Diastolic Provider Name and Address Organization Details Last Updated DateTime 3 149.86 cm 32.1 kg/m2 06782.5 4 g 97.7 [degF] 61 /min 97 % 97 % 171/96 mm[Hg] Kristi Ovalle MA [facility] [employer] [facility] 3 14:33:48 Date Recorded Body height Body mass index (BMI) Body weight Body temperature Pain severity - 0-10 verbal numeric rating [Score] - Reported Respiratory rate Heart rate Oxygen saturation Oxygen saturation in Arterial blood by Pulse oximetry Systolic And Diastolic Provider Name and Address Organization Details Last Updated DateTime 3 149.86 cm 32.5 kg/m2 56859.0 7 g 96.4 [degF] 0 16 /min 53 /min 97 % 97 % 122/76 mm[Hg] Anna Marie Talamantes RN [facility] [employer] [facility] 3 14:15:55 Social History Question Answer Notes LastModified by Organization Details LastModified Time Tobacco Smoking Status Never Smoker Anna Marie Talamantes RN [facility], [facility] [employer] [facility] 01/24/2023 14:10:15 Do You Have An [...] Or The Highest Degree You Have Received? [id number] Information not available 01/24/2023 Have There Been Any Changes To Your Family Or Social Situation? Yes Passed On 09/23/22 Information not available 01/24/2023 Do You Use Insect Repellent Routinely? Yes Information not available 01/24/2023 Where Do You Live? SingleLevelHouse Information not available 01/24/2023 Do You Have A Medical Power Of Mica Miner? No Information not available 01/24/2023 How Many [...] anxious, or unable to sleep at night)? [id number] Information not available 01/24/2023 Family History Relationship [...] 1 Y DEPRESSION (INCLUDING POST ) Y HAVE YOU BEEN HOSPITALIZED OR SEEN IN [facility] ER IN THE PAST YEAR ? Y ANXIETY DISORDER Y Gynecological History Statement/Question Response Date of Last Pap Smear Current Control Method IUD Date of Last Colonoscopy Most Recent Mammogram Most Recent Bone Density Obstetrics History GPAL:G 0 P 0 0 0 0 Past Encounters Encounter ID Performer Location Encounter Start Date Encounter Closed Date Diagnosis/Indication Diagnosis SNOMED-CT Code Diagnosis ICD10 Code Diagnosis Note [id number] Anna Marie Ellis NP [address] [address] 09/14/2022 14:35:40 09/14/2022 15:38:36 Essential hypertension 31774149 I10 Losartan 50 mg po daily. HCTZ 12.5 mg po daily. Anemia screening 9607459 07 Z13.0 Diabetes m ellitus screening 556983410 Z13.1 Thyroid di sorder screening 643008818 Z13.29 Hyperlipid emia screening 713310487 Z13.220 Screening for disorder 020685553 Z13.9 Screening mammography of bilateral breasts 1020112656 13584 Z12.31 Mammogram ordered 09/14/22 History of bypass of stomach 716850618 Z98.84 2009. Has been on iron tablets. [id number] Anna Marie Ellis NP [address] [place] [address] 10/17/2022 16:47:14 10/17/2022 18:05:51 Essential hypertension 65202169 I10 Losartan 50 mg po daily to 100 mg po daily on 10/17/22. HCTZ 12.5 mg po daily. Mixed anxi ety and depressive disorder 734168313 F41.8 lexapro 10 mg po daily. Hydroxyzin e 25 mg po tid prn. Gastroesop hageal reflux disease 772059307 K21.9 pantoprazo le 40 mg po daily. will be on for 2 mo.Pancrea titis. Acute pancreatitis 600 K85.80 Amylase/li pase/cmp. If still raised, will refer back to Dr. Yu MATIAS at [facility]. Bereavement 53554114 Z63 .4 Mourning sudden of . Plans to call [employer] and if needed, I will give referral and FMLA. [id number] Anna Marie Ellis NP [address] [address] 11/29/2022 14:20:11 11/29/2022 15:05:09 Mixed anxiety and depressive disorder 239942745 F41.8 Lexapro 20 mg po daily (increased dose from 10 mg 11/29/22). Hydroxyzin e 25 mg po tid prn. Gastroesop hageal reflux disease 190016676 K21.9 no further issues. Not on meds as of 11/29/22Pan creatitis. Hyperlipidemia 11079826 E78.5 low fat diet advised[facility] s 09/2022 Essential hypertension 15271633 I10 Losartan 100 mg po daily. HCTZ 12.5 mg po daily.[place] olol 50 mg po daily added on 11/29/22 Bereavement 19914663 Z63 .4 Mourning sudden of . Plans to call [employer] and if needed, I will give referral and FMLA. Spasm of back muscles 20 2056673 M62.830 methocarba mol 500 mg po bid prn. [id number] Anna Marie Ellis NP [address] [address] 01/24/2023 14:04:33 01/24/2023 14:45:33 Essential hypertension 35118084 I10 Losartan 100 mg po daily. HCTZ 12.5 mg po daily.[place] olol 50 mg po daily added on 11/29/22 Mixed anxi ety and depressive disorder 758438192 F41.8 Lexapro 20 mg po daily (increased dose from 10 mg 11/29/22). Hydroxyzin e 25 mg po tid prn. Gastroesop hageal reflux disease 322708245 K21.9 no further issues. Not on meds as of 11/29/22Pan creatitis. Hyperlipidemia 77961545 E78.5 low fat diet [facility] s 09/2022 Bereavement 64456266 Z63 .4 Mourning sudden of . Plans to call [employer] and if needed, I will give referral and FMLA. Spasm of back muscles 20 4891746 M62.830 methocarba mol 500 mg po bid prn. Bilateral tinnitus 25896 22647 102 H93.13 worked for the [employer] and likely having hearing loss. Health Concerns Section Related Observation LastModified by Organization Detai ls LastModified Time None Recorded Concern Status LastModified by Organization Details LastModified Time None Recorded Advance Directives Directive N: Payers Insurance Date Sequence Insurance Name Policy Number Policy Gambino Covered Member ID Gambino Member ID Guarantor Name 01/21/2023 1 [employer] (POS II) [id number] Leonard Hanson [id number] Rima Hanson OBGytameka Episode No OBEpisode recorded.
--- NOTE | 2024-12-30 09:45 | CY_PTH ---
PATIENT: Rima Hanson LOC: [facility] U#:[id number] AGE/SX: 54/F ROOM: RE12/30/[address]: Arin Doherty APRN : 1970 BED: DIS: 12/30/2024 SPEC #: [id number] RECD: 12/30/24 11:00 STATUS: LISSET REGriselda #: [id number] JAKY: 12/30/24 09:[address]: Arin Doherty DEPT: [facility] Cytology RECD BY: Gayle Horan ENTERED: 12/30/24 11:02 SP TYPE: Cytology OTHR DR: Anna Marie Ellis APRN Tissues: A - Cytology Fluid Procedures: Cell Block Cytopathology Cytospin
[2024-12-30 11:56] LABS: Appearance Peritoneal Fluid Clear (Clear); Color Peritoneal Fluid Yellow (Colorless); Source Peritoneal Fluid Peritoneal Fluid
[2024-12-30 11:57] LABS: Lymphocytes Peritoneal Fluid 21 %; Macrophages Peritoneal Fluid 41 %; Mesothelial Cells Peritoneal Fluid 30 %; Monocytes Peritoneal Fluid 7 %; Neutrophils Peritoneal Fluid 1 % (0-25); Nucleated Cells Peritoneal Flu 744 /uL (0-500)
[2024-12-31 13:08] LABS: Albumin, Body Fluid 1.5 g/dL (Not Estab.)
== END 2024-12-30 08:54 | disposition home or self-care (01) ==
PROVIDERS: PCP Nurse Practitioner Family; Visit Provider Nurse Practitioner
DX: R18.8 Other ascites (principal)
CPT/HCPCS: 49083; 82042; 84157; 88108; 88305; 89051

== ENCOUNTER 2025-01-21 13:08 | Outpatient (CLI) | payer OTHER, SELFPAY ==
--- OUTSIDE RECORDS SUMMARY | 2025-01-21 13:21 | XMS_ITS | Clinical Summary ---
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
[2025-01-21 14:19] LABS: Hematocrit 35.0 % (37.0-47.0); Hemoglobin 11.1 g/dL (12.0-15.0); Immature Platelet Fraction Pct 7.1 % (0.9-11.2); Mean Corpuscular HGB Conc 31.7 g/dl (32-36); Mean Corpuscular Hemoglobin 29.6 pg (26-34); Mean Corpuscular Volume 93.3 fl (80-100); Platelet Count Result 44 k/mm3 (150-375); Red Blood Count 3.75 M/mm3 (4.2-5.4); White Blood Count 4.4 K/mm3 (4.5-10.0)
[2025-01-21 14:48] LABS: Alanine Aminotransferase 17 U/L (6-35); Albumin Level 4.3 g/dL (3.5-5.1); Alkaline Phosphatase 182 U/L (38-126); Anion Gap 12 mmol/L (4-12); Aspartate Amino Transferase 77 U/L (14-36); Bilirubin,Total 3.1 mg/dL (0.2-1.3); Blood Urea Nitrogen 10 mg/dL (7-17); Calcium 9.8 mg/dL (8.4-10.2); Carbon Dioxide 19 mmol/L (22-30); Chloride 104 mmol/L (98-107); Estimated Glomerular Filt Rate > 60; Glucose 94 mg/dL (65-110); Potassium 2.7 mmol/L (3.4-5.0); Sodium 135 mmol/L (137-145); Total Protein 9.1 g/dL (6.3-8.2)
[2025-01-21 14:54] LABS: INR 1.2; Prothrombin Time 15.1 Seconds (11.1-14.7)
== END 2025-01-21 13:09 | disposition home or self-care (01) ==
LOC: ANHLAB 13:09
PROVIDERS: PCP Nurse Practitioner Family; Visit Provider Nurse Practitioner
DX: K70.9 Alcoholic liver disease, unspecified (principal); R18.8 Other ascites; K76.6 Portal hypertension
CPT/HCPCS: 36415; 80048; 80076; 85027; 85055; 85610

== ENCOUNTER 2025-01-21 15:41 | Emergency (ER) | payer OTHER, SELFPAY ==
[2025-01-21 15:44] VITALS: BP 149/78; PULSE 91; RESP 16; TEMP 36.9; O2SAT 100
--- NOTE | 2025-01-21 15:57 | ECG_ITS ---
Test Date: 2025-01-21 16:01:13 Measurements Intervals [place] Rate: 81 P: 41 TX: 158 QRS: -17 QRSD: 81 T: 15 QT: 387 QTc: 452 Interpretive Statements SINUS RHYTHM ANTERIOR INFARCT, AGE INDETERMINATE BORDERLINE T WAVE ABNORMALITY- INFERIOR LEADS ABNORMAL ECG Compared to ECG 09/27/2024 11:13:43 HEART RATE HAS INCREASED Electronically Signed On 01-21-2025 16:18:38 CDT by Surya Montalvo D.O.
--- OUTSIDE RECORDS SUMMARY | 2025-01-21 16:02 | XMS_ITS | Clinical Summary ---
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
--- OUTSIDE RECORDS SUMMARY | 2025-01-21 16:02 | XMS_ITS ---
Author Organization Unknown ENCOUNTERS Encounter Performer Location Date Diagnosis Diagnosis Status Pre Admit [facility] [address] [place] [address] [id number] Outpatient [facility] [address] [place] [address] [id number] Outpatient [facility] [address] [place] [address] [id number] SHERIE Outpatient [facility] [address] [place] [address] [id number] SHER[facility] Outpatient [facility] [address] [place] [address] [id number] SH[facility]IE Outpatient [facility] [address] [place] [address] [id number] SH[facility]IE Outpatient [facility] [address] [place] [address] [id number] [facility] Outpatient Anna Marie Caleb [facility] [address] [place] [address] [id number] [facility] Outpatient Anna Marie Ellis [facility] [address] [place] [address] [id number] SHERIE Inpatient [facility] [address] [place] [address] [id number] [facility] [address] [place] [address] [id number] Emergency [facility] [address] [place] [address] [id number] Pre Admit [facility] [address] [place] [address] [id number] Outpatient Anna Marie Ellis [facility] [address] [place] [address] [id number] [facility] Outpatient Anna Marie Ellis [facility] [address] [place] [address] [id number] [facility] In[facility] [address] [place] [address] [id number] [facility] [address] [place] [address] [id number] PAT Outpatient Anna Marie Ellis [facility] [address] [place] [address] [id number] SHERIE *Note: Encounters from your own facility or health system may be excluded. Allergies, Adverse Reactions, Alerts Allergen Type Severity Identification Date Medications Name Date Quantity Days Supplied [facility] Number
[2025-01-21 16:13] VITALS: RESP 15
[2025-01-21 16:29] LABS: Magnesium 1.6 mg/dL (1.6-2.3)
[2025-01-21 17:51] LABS: Potassium 2.9 mmol/L (3.4-5.0)
[2025-01-21] MEDS: POTASSIUM CHLORIDE 20 MEQ PACKET (FOR LIQUID) 40 MEQ PO (18:09)
[2025-01-21] MEDS: KCL 20 MEQ/SW 100 ML 100 ML 50 MEQ IVPB (18:35)
[2025-01-21 18:39] VITALS: BP 136/86; PULSE 76; RESP 16; TEMP 36.6; O2SAT 100
[2025-01-21 18:46] VITALS: BP 127/81; PULSE 75; RESP 16; O2SAT 99
[2025-01-21 19:01] VITALS: BP 137/83; PULSE 79; RESP 18; O2SAT 98
--- NOTE | 2025-01-21 20:30 | ED_ITS ---
HPI - General Adult General Chief complaint: Recheck/Abnormal Lab/Rx Stated complaint: K+ level 2.7-sent by MD Time Seen by Provider: 01/21/25 16:04 Source: patient Mode of arrival: ambulatory Limitations: no limitations History of Present Illness HPI narrative: 54-year-old with a history of alcohol abuse, anxiety here with a complains of home having low potassium. Patient states that she had outpatient lab work done early this morning was told by her primary doctor to go to the ER for evaluation. Patient presently denies having any chest pain or shortness of breath or muscle weakness review she also reports that this is ongoing problem with her for last several years. Onset (ago): day(s) (1) Pain Consistency: constant Relieving factors: none Exacerbating factors: none Associated symptoms: denies other symptoms Related Data Home Medications ?Medication ?Instructions ?Recorded ?Confirmed ?Last Taken ?Type hydroxyzine HCl 25 mg tablet 25 mg PO DAILY 09/26/24 0 01/06/25 Unknown History Allergies Allergy/AdvReac Type Severity Reaction Status Date / Time No Known Allergies Allergy Verified 01/21/25 15:43 Review of Systems 2 Review of Systems: All systems reviewed & are unremarkable except as noted in HPI and below Constitutional: Constitutional: Reports no additional constitutional complaints Eyes: Eyes: Reports no additional eye complaints ENT: Reports system reviewed and no additional complaints, except as documented Cardiovascular: Cardiovascular: Reports no additional cardiovascular complaints Respiratory: Respiratory: Reports no additional respiratory complaints Gastrointestinal: Gastrointestinal: Reports no additional gastrointestinal complaints Musculoskeletal: Musculoskeletal: Reports no additional musculoskeletal complaints PMFSH Past Medical History Medical History Depression Hypertension Anxiety Alcohol abuse Surgical History Surgical History History of section History of laparoscopic cholecystectomy History of carpal tunnel release History of gastric bypass Family History Family History Father Diabetes mellitus Hypertension Heart disease Mother Asthma Diabetes mellitus Hypertension Heart disease Sibling Hypertension Depression Heart disease Social History Social History Social History: Surrogate medical decision maker: Alayna Southn ([id number]) or Delores Pina (daughter). Code status: Full code. Smoking status: Never smoker Second hand tobacco smoke exposure: No Alcohol intake: former Drinks per week: 12 Substance use: never Substance use type: does not use Do You Feel Safe in your Home?: Yes Lack of Transportation: No Lack of Food: Never True Current Housing: I Have Housing Concerned About Future Housing: No Difficulty Paying Gas/Electric Bills: No Difficulty Paying for Meds: No Currently Unemployed: No Education: Associate Degree Difficulty w/ Childcare or Family Care: No Living arrangements: with family Additional living arrangements comments: . Currently living with her aunt. Occupation/Education: occupation Additional occupation/education comments: [employer] for [employer]. Spiritual care concerns: No Agree to blood products: Yes Exam 2 Narrative: GENERAL: Well-appearing, well-nourished, and in no acute distress. HEAD: Normocephalic, atraumatic. EYES: PERRLA and EOMI. ENT: Nares clear, no rhinorrhea or epistaxis. Mucous membranes moist. NECK: Supple. CHEST: Clear to auscultation. No respiratory distress. HEART: Regular rate and rhythm. No murmur heard. Normal peripheral pulses. ABDOMEN: Soft, nontender, nondistended, normal active bowel sounds. EXTREMITIES: Normal range of motion. No edema. SKIN: Warm, dry, no rash. NEURO: No focal deficits. Alert and oriented x3. PSYCH: Normal mood and affect. Course Course Emergency Course: I repeat potassium level was 2.9 , IV KCL and PO kcl , i advised her to continue home medications, follow with her PMD. Vital Signs Vital signs: Vital Signs Temperature 36.9 C 01/21/25 15:44 Pulse Rate 91 01/21/25 15:44 Respiratory Rate 16 01/21/25 15:44 Blood Pressure 149/78 H 01/21/25 15:44 Pulse Oximetry 100 01/21/25 15:44 Oxygen Delivery Room Air 01/21/25 15:44 Temperature 36.6 C 01/21/25 18:39 Pulse Rate 79 01/21/25 19:01 Respiratory Rate 18 01/21/25 19:01 Blood Pressure 137/83 01/21/25 19:01 Pulse Oximetry 98 01/21/25 19:01 Oxygen Delivery Room Air 01/21/25 15:44 Medical Decision Making Medical Records Medical records reviewed: Yes I reviewed the external patient's medical records. Vital Signs Vital Signs: Vital Signs Temperature 36.9 C 01/21/25 15:44 Pulse Rate 91 01/21/25 15:44 Respiratory Rate 16 01/21/25 15:44 Blood Pressure 149/78 H 01/21/25 15:44 Pulse Oximetry 100 01/21/25 15:44 Oxygen Delivery Room Air 01/21/25 15:44 Temperature 36.6 C 01/21/25 18:39 Pulse Rate 79 01/21/25 19:01 Respiratory Rate 18 01/21/25 19:01 Blood Pressure 137/83 01/21/25 19:01 Pulse Oximetry 98 01/21/25 19:01 Oxygen Delivery Room Air 01/21/25 15:44 Lab Data Lab results reviewed: Yes I reviewed the patient's lab results. 01/21/25 16:07 Labs: Lab Results 01/21/25 01/21/25 Range/Units 16:07 16:08 Potassium 2.9 L (3.4-5.0) mmol/L Magnesium 1.6 (1.6-2.3) mg/dL ECG Data EKG #1: ECG completion date: 01/21/25 ECG completion time: 16:01 EKG Interpretation: normal rate (81), sinus rhythm, normal QT and no acute changes Discharge Plan Discharge Clinical Impression: Chronic hypokalemia Patient Disposition: Home Condition: Stable Instructions: Hypokalemia (ED) Patient Language: Albanian Prescriptions: No Action hydroxyzine HCl 25 mg tablet 25 mg PO DAILY spironolactone 100 mg tablet 100 mg PO DAILY Qty: 30 3RF thiamine HCl (vitamin B1) 100 mg capsule 100 mg PO DAILY Qty: 5 0RF escitalopram oxalate 20 mg tablet 20 mg PO DAILY Qty: 90 0RF trazodone 50 mg tablet 50 mg PO QHS Qty: 90 0RF potassium chloride [Klor-Con 10] 10 mEq tablet extended release 10 meq PO DAILY Qty: 90 0RF Follow-up/Referrals: Anna Marie Ellis APRN [Primary Care Provider, Family Practice] Time of Disposition: 20:31
[2025-01-21 20:34] VITALS: BP 132/74; PULSE 84; RESP 18; TEMP 36.3; O2SAT 99
== END 2025-01-21 20:35 | disposition home or self-care (01) ==
PROVIDERS: Physician Assistant; Emergency Provider Family Medicine; PCP Nurse Practitioner Family
DX: E87.6 Hypokalemia (principal); I10 Essential (primary) hypertension; Z98.84 Bariatric surgery status; Z90.49 Acquired absence of other specified parts of digestive tract; Z79.899 Other long term (current) drug therapy; R94.31 Abnormal electrocardiogram [ECG] [EKG]
CPT/HCPCS: 36415; 80048; 80076; 83735; 84132; 85027; 85055; 85610; 93005; 96365; 96366; 99284; A9270; J3480

== ENCOUNTER 2025-01-27 12:23 | Outpatient (CLI) | payer OTHER, SELFPAY ==
[2025-01-27 13:07] LABS: Alanine Aminotransferase 11 U/L (6-35); Albumin Level 4.1 g/dL (3.5-5.1); Alkaline Phosphatase 135 U/L (38-126); Anion Gap 10 mmol/L (4-12); Aspartate Amino Transferase 41 U/L (14-36); Bilirubin,Total 1.5 mg/dL (0.2-1.3); Blood Urea Nitrogen 10 mg/dL (7-17); Calcium 9.5 mg/dL (8.4-10.2); Carbon Dioxide 22 mmol/L (22-30); Chloride 103 mmol/L (98-107); Estimated Glomerular Filt Rate > 60; Glucose 118 mg/dL (65-110); Potassium 4.1 mmol/L (3.4-5.0); Sodium 135 mmol/L (137-145); Total Protein 8.6 g/dL (6.3-8.2)
== END 2025-01-27 12:24 | disposition home or self-care (01) ==
LOC: ANHLAB 12:25
PROVIDERS: PCP Nurse Practitioner Family; Visit Provider Nurse Practitioner Family
DX: E87.6 Hypokalemia (principal)
CPT/HCPCS: 36415; 80053

== ENCOUNTER 2025-02-06 01:48 | Day surgery (SDC) | payer OTHER, SELFPAY ==
[2025-01-27 09:41] VITALS: BMI 25.4
--- OUTSIDE RECORDS SUMMARY | 2025-02-06 01:51 | XMS_ITS ---
Author Organization Unknown ENCOUNTERS Encounter Performer Location Date Diagnosis Diagnosis Status [facility] [address] [place] [address] [id number] Outpatient [facility] [address] [place] [address] [id number] Emergency [facility] [address] [place] [address] [id number] SHERIE Pre Admit [facility] [address] [place] [address] [id number] Outpatient [facility] [address] [place] [address] [id number] SHERIE Outpatient [facility] [address] [place] [address] [id number] SHERIE Outpatient [facility] [address] [place] [address] [id number] SHERIE Outpatient [facility] [address] [place] [address] [id number] SHERIE Outpatient [facility] [address] [place] [address] [id number] SHERIE Outpatient [facility] [address] [place] [address] [id number] SHERIE Outpatient [facility] [address] [place] [address] [id number] SHERIE Outpatient [facility] [address] [place] [address] [id number] SHERIE [facility] [address] [place] [address] [id number] SHERIE Outpatient [facility] [address] [place] [address] [id number] [facility] [address] [place] [address] [id number] Pre Admit [facility] [address] [place] [address] [id number] Outpatient Anna Marie Ellis [facility] [address] [place] [address] [id number] SHERIE Outpatient Anna Marie Ellis [facility] [address] [place] [address] [id number] SHERIE In[facility] [address] [place] [address] [id number] SHERIE [facility] [address] [place] [address] [id number] PAT Outpatient Anna Marie Ellis [facility] [address] [place], [place] [address] [id number] SHERIE *Note: Encounters from your own facility or health system may be excluded. Allergies, Adverse Reactions, Alerts Allergen Type Severity Identification Date Medications Name Date Quantity Days Supplied [facility] Number
--- OUTSIDE RECORDS SUMMARY | 2025-02-06 01:51 | XMS_ITS | Clinical Summary ---
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
[2025-02-06 12:00] VITALS: BP 153/77; PULSE 82; RESP 16; TEMP 36.5; O2SAT 100
--- NOTE | 2025-02-06 12:00 | WPDANESEPPF ---
Anes - Initial Pre Proc Eval Procedure: Operation Date: 02/06/25 13:30 Proposed Procedures p EGD & Diagnostic Colonoscopy - Daniel Schwarz MD Date/Time: 02/06/25 12:00 Surgeon: Daniel Schwarz MD Pre Op Diagnosis: Noninfective gastroenteritis and colitis, unspecif Patient Data Age: 54 Gender: F Height: 1.5 m Weight: 57.2 kg Allergies Allergy/AdvReac Type Severity Reaction Status Date / Time No Known Allergies Allergy Verified 02/06/25 11:58 Home Medications ?Medication ?Instructions ?Recorded ?Confirmed ?Type hydroxyzine HCl 25 mg tablet 25 mg PO DAILY PRN anxiety 09/26/24 01/27/25 History spironolactone 100 mg tablet 100 mg PO DAILY #30 tabs 01/06/25 02/06/25 Rx potassium chloride 10 mEq 10 meq PO DAILY #90 tabs 01/19/25 02/06/25 Rx tablet,extended release (Klor-Con) multivitamin 1 tablet PO DAILY 01/27/25 02/06/25 History escitalopram oxalate 20 mg tablet 20 mg PO DAILY #90 tabs 01/29/25 02/06/25 Rx trazodone 50 mg tablet 50 mg PO QHS PRN insomnia #90 tabs 01/29/25 02/06/25 Rx Patient hx anesthesia problems: none Family hx anesthesia problems: none Results Review: All pre-operative results and documents have been reviewed as part of the pre-operative evaluation. PMFSH Past Medical History Medical History Depression Hypertension Anxiety Alcohol abuse Surgical History Surgical History History of section History of laparoscopic cholecystectomy History of carpal tunnel release History of gastric bypass Family History Family History Father Diabetes mellitus Hypertension Heart disease Mother Asthma Diabetes mellitus Hypertension Heart disease Sibling Hypertension Depression Heart disease Social History Social History Social History: Surrogate medical decision maker: Alayna Southn ([id number]) or Delores Pina (daughter). Code status: Full code. Smoking status: Never smoker Second hand tobacco smoke exposure: No Alcohol intake: former Drinks per week: 12 Substance use: never Substance use type: does not use Do You Feel Safe in your Home?: Yes Lack of Transportation: No Lack of Food: Never True Current Housing: I Have Housing Concerned About Future Housing: No Difficulty Paying Gas/Electric Bills: No Difficulty Paying for Meds: No Currently Unemployed: No Education: Associate Degree Difficulty w/ Childcare or Family Care: No Living arrangements: with family Additional living arrangements comments: . Currently living with her aunt. Occupation/Education: occupation Additional occupation/education comments: [employer] for [employer]. Spiritual care concerns: No Agree to blood products: Yes Anes - Eval Final PreProcedure Day of Procedure 02/06/25 12:00 Patient weight: overweight Heart: regular rate and rhythm Lungs: clear to auscultation Airway: Mallampati scale class II Neurological: alert and oriented Last oral intake: >/= 8 hours ASA classification: IV Emergent: no Anesthetic plan: proceed Anesthesia type and monitoring: general GIVS and standard monitoring Results Review: All pre-operative results and documents have been reviewed as part of the pre-operative evaluation. Informed Consent: The patient's anesthetic plan and its attendant risks and benefits were discussed with the patient/family/POA. Questions were solicited and answers provided to the satisfaction of the patient/family/POA.
[2025-02-06] MEDS: LACTATED RINGERS 1,000 ML 150 ML IV CONT (12:10)
--- NOTE | 2025-02-06 12:31 | WPDHPUPDATE1 ---
History and Physical Update Update Date/Time: 02/06/25 12:31 History and Physical has been reviewed, including an updated exam of the patient. There are NO changes in the patient's condition. Risks, benefits, and alternatives have been discussed and questions answered. Patient agrees to proceed with procedure.
--- NOTE | 2025-02-06 12:37 | SUR.OPER ---
EGD END 1233 COLONOSCOPY START 1237
--- NOTE | 2025-02-06 12:44 | S_PTH ---
PATIENT: Rima Hanson LOC: [facility]#:[id number] AGE/SX: 54/F ROOM: RE02/06/[address]: Daniel Schwarz MD : 1970 BED: DIS: 02/06/2025 SPEC #: [id number] RECD: 02/06/25 13:19 STATUS: LISSET REQ #: [id number] JAKY: 02/06/25 12:[address]: Daniel Schwarz DEPT: [facility] Surgical RECD BY: Danay Turcios ENTERED: 02/06/25 13:19 SP TYPE: Surgical OTHR DR: Anna Marie Ellis APRN Tissues: A - Colon Biopsy Procedures: Hematoxylin and Eosin Stain Gross and Microscopic Level 4
[2025-02-06 12:47] VITALS: BP 102/67; PULSE 78; RESP 18; O2SAT 96
[2025-02-06 12:57] VITALS: BP 114/75; PULSE 74; RESP 19; O2SAT 98
[2025-02-06 13:07] VITALS: BP 119/71; PULSE 67; RESP 17; O2SAT 98
== END 2025-02-06 13:21 | disposition home or self-care (01) ==
PROVIDERS: PCP Nurse Practitioner Family; Referring Provider Nurse Practitioner; Visit Provider Internal Medicine Gastroenterology
PROC: 0DJ08ZZ Inspection of Upper Intestinal Tract, Via Natural or Artificial Opening Endoscopic (ICD-10-PCS; CPT 45378; principal; 2025-02-06 13:30)
DX: R19.7 Diarrhea, unspecified (principal); K64.8 Other hemorrhoids; K70.31 Alcoholic cirrhosis of liver with ascites; Z98.84 Bariatric surgery status
CPT/HCPCS: 45380; 43235; 88305; J2704; J7120

== ENCOUNTER 2025-02-28 11:47 | Outpatient (CLI) | payer OTHER, SELFPAY ==
--- OUTSIDE RECORDS SUMMARY | 2025-02-28 11:50 | XMS_ITS | Clinical Summary ---
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
--- OUTSIDE RECORDS SUMMARY | 2025-02-28 11:50 | XMS_ITS | Data Portability ---
Author Organization [place] [facility], Main Office Address [address] [place] [address] Assessment Encounter Date Assessment Date Assessment LastModified by Organization Details LastModified Time 10/17/2022 10/17/2022 I have reconciled the patient's medications post their discharge from inpatient facility. Not available 10/17/2022 17:45:40 Plan of Treatment Reminders Order Date Submit Date Provider Last Modified By Organization Details Last Modified Time Details Appointments None recorded. Lab amylase + lipase, serum 2022 023 [email or web address] [facility] (Lab), [address] [place], [address], 3 17:32:37 CMP, serum or plasma 2022 023 [facility] (Lab), [address] [place], [address], 3 15:55:53 vitamin D, 25-hydroxy, total, serum 2022 023 [facility] (Lab), [address] [place], [address], 3 09:48:14 vitamin B12 + folate, serum or blood 2022 023 [facility] (Lab), [address] [place], [address], 3 09:48:14 magnesium, serum or plasma 2022 023 [facility] (Lab), [address] [place], [address], 3 09:48:15 lipid panel, serum 2022 023 [facility] (Lab), [address] [place], [address], 3 09:48:14 iron + TIBC + ferritin, serum 2022 023 [facility] (Lab), [address] [place], [address], 3 09:48:14 TSH, serum or plasma 2022 023 [facility] (Lab), [address] [place], [address], 3 09:48:15 CBC w/ auto diff 2022 023 [facility] (Lab), [address] [place], [address], 3 09:48:14 CMP, serum or plasma 2022 023 [facility] (Lab), [address] [place], [address], 3 09:48:14 glycohemogl obin, total, blood 2022 023 [facility] (Lab), [address] [place], [address], 3 09:48:14 Referral None recorded. Procedures None recorded. Surgeries None recorded. Imaging MAMMO, screening, digital, bilateral 2022 023 [email or web address] [address] [facility], [address], [address] [address], [place], [address], 3 10:50:57 XR, chest 2022 023 JULIA Not available 12:56:19 electrocard iogram 2022 023 JULIA Not available 15:36:05 Medication Orders methocarbam ol 500 mg tablet 2022 023 [id number] [address] [place], [address], 3 14:57:04 atenolol 50 mg tablet 2022 023 [facility], [address] [place], [address], 3 14:57:04 Lexapro 20 mg tablet 2022 023 [facility], [address] [place], [address], 3 14:57:03 losartan 100 mg tablet 2022 023 [facility], [address] [place], [address], 3 17:39:09 hydrochloro thiazide 12.5 mg capsule 2022 023 [facility]/Pharmacy #2510, [address] [place], [address], 3 17:39:08 hydroxyzine HCl 25 mg tablet 2022 023 [facility]acy #2510, [address] [place], [address], 3 17:39:08 losartan 50 mg tablet 2022 023 [facility]/Pharmacy #2510, [address] [place], [address], 3 17:44:40 hydrochloro thiazide 12.5 mg capsule 2022 023 [facility]Pharmacy #8850, [address] [place], [address], 15:17:11 Patient TargetsNo targets recorded. Patient Instructions Encounter Date Encounter Id Patient Instructions Last Modified By Organization Details Last Modified Time 09/14/2022 [id number] FU in 2 weeks fo r bp, labs, ekg, chest xray. Not available 09/14/2022 15:20:02 10/17/2022 [id number] Thank you for your visit to our [...] Medical Equipment needed: Billing Guidelines CPT code 87975- Transitional Care Management services with moderate medical decision complexity (gxqg-qm-wmau visit within 14 days of discharge). CPT code 64419- Transitional Care Management services with high medical decision complexity (fbkc-ej-zrkc visit within 7 days of discharge). Not available 10/17/2022 16:58:55 11/29/2022 [id number] FU in 2 mo for htn, lipid, depression/anxiet y, back pain Not available 11/29/2022 15:02:11 01/24/2023 [id number] FU in 6 mo for htn, lipid, depression/anxiet y, back pain Not available 01/24/2023 14:35:26 Reason for Referral None Reported. Results Created Date Observation Date Name Description Value Unit Range Abnormal Flag Note LastModifiedBy Organization Detail LastModifiedTime 09/16/19 23 09/15/2022 XR, chest No observ ation record ed. [address], [place], [address], 09/15/2022 17:18:09 09/17/19 23 09/15/2022 elect sami julesgr am No observ ation record ed. [address] (Resp Services) [address] [place] [address] [facility], [place], [address], 09/21/2022 14:34:20 10/09/19 23 10/08/2022 CT, abdom en + pelvi s, w/ contr ast No observ ation record ed. [address] [address], [place], [address], 10/09/2022 16:44:06 10/09/19 23 10/08/2022 US, abdom en, limit ed No observ ation record ed. [address] [address], [place], [address], 10/09/2022 16:44:51 Result Notes None recorded. Problems Name Problem SNOMED Code Status Onset Date Resolution Date Notes Provider Name and Address Organization Details Recorded Time Essential hypertensio n 06110272 Active 2022 Anna Marie Ellis NP [address], [address], [place], [address], [employer] 3 15:04:17 Serum iron above reference range 793886486 Active 2022 Anna Marie Ellis NP [address], [address], [place], [address], [employer] 3 19:52:39 Liver enzymes level above reference range 350245401 Active 2022 Ann aMarie Ellis NP [address], [address], [place], [address], [facility] 3 19:52:54 Hyperlipide phyllis 46284837 Active 2022 Anna Marie Ellis NP [address], [address], [place], [address], [facility] 3 19:53:00 Hyperglycem ia 62442136 Active 2022 Anna Marie Ellis NP [address], [address], [place], [address], [facility] 3 19:53:08 Hemochromat osis 802895897 Active 2022 Anna Marie Ellis NP [address], [address], [place], [address], [facility] 3 19:53:53 Anxiety 14001464 Active 2022 Anna Marie Ellis NP [address], [address], [place], [address], [facility] 3 11:30:16 Mixed anxiety and depressive disorder 638389271 Active 2022 Anna Marie Ellis NP [address], [address], [place], [address], [facility] 3 17:20:40 Gastroesoph ageal reflux disease 176289012 Active 2022 Anna Marie Ellis NP [address], [address], [place], [address], [facility] 3 17:29:08 Acute pancreatiti s 500428546 Active 2022 Anna Marie Ellis NP [address], [address], [place], [address], [facility] 3 17:36:34 Bereavement 55358396 Active 2022 Anna Marie Ellis NP [address], [address], [place], [address], [facility] 3 17:59:21 Spasm of back muscles 607407824 Active 2022 Anna Marie Ellis NP [address], [place], [address], [email or web address] [facility] 14:50:55 Bilateral tinnitus 1109865792284 Active 2022 Anna Marie Ellis NP [address], [address], [place], [address], [employer] [facility] 14:33:11 Problem Notes None recorded. Procedures Surgical History Date Name Laterality Status Provider Name and Address Organization Details Recorded Time 10/18/19 Transitional_Care_M anagement completed Anna Marie Talamantes RN [facility] [facility] 10/17/2022 16:58:55 06/04/19 Gastric bypass for obesity completed Anna Marie Ellis NP [address] [facility] [address], [place], [address], [employer] [facility] 09/14/2022 15:11:10 section completed Anna Marie Talamantes RN [facility] 09/14/2022 14:50:55 cholecystectomy completed Anna Marie Talamantes RN [facility] 09/14/2022 14:51:09 decompression of ulnar nerve completed Anna Marie Talamantes RN [facility] 09/14/2022 14:52:53 Carpal tunnel surgery completed Anna Marie Talamantes RN [facility] 09/14/2022 14:53:05 Imaging Results None recorded. Procedure [...] Address Organization Details Last Updated DateTime 3 08780.1 7 g 31.3 kg/m2 149.86 cm 96 [degF] 86 /min 16 /min 96 % 96 % 0 210/120 mm[Hg] Anna Marie Talamantes RN [facility] 3 14:46:15 Date Recorded Body height Body mass index (BMI) Body weight Body temperature Respiratory rate Pain severity - 0-10 verbal numeric rating [Score] - Reported Heart rate Systolic And Diastolic Provider Name and Address Organization Details Last Updated DateTime 3 149.86 cm 31.1 kg/m2 81183.5 7 g 97 [degF] 16 /min 4 88 /min 170/100 mm[Hg] Anna Marie Talamantes RN [place] [facility] 3 17:05:26 Date Recorded Body height Body mass index (BMI) Body weight Body temperature Heart rate Oxygen saturation Oxygen saturation in Arterial blood by Pulse oximetry Systolic And Diastolic Provider Name and Address Organization Details Last Updated DateTime 3 149.86 cm 32.1 kg/m2 47953.5 4 g 97.7 [degF] 61 /min 97 % 97 % 171/96 mm[Hg] Kristi Ovalle MA [facility] 3 14:33:48 Date Recorded Body height Body mass index (BMI) Body weight Body temperature Pain severity - 0-10 verbal numeric rating [Score] - Reported Respiratory rate Heart rate Oxygen saturation Oxygen saturation in Arterial blood by Pulse oximetry Systolic And Diastolic Provider Name and Address Organization Details Last Updated DateTime 3 149.86 cm 32.5 kg/m2 19948.0 7 g 96.4 [degF] 0 16 /min 53 /min 97 % 97 % 122/76 mm[Hg] Anna Marie Talamantes RN [facility] [employer] [facility] 3 14:15:55 Social History Question Answer Notes LastModified by Organization Details LastModified Time Tobacco Smoking Status Never Smoker Anna Marie Talamantes RN [facility], [facility] [employer] [facility] 01/24/2023 14:10:15 Do You Have [...] Or The Highest Degree You Have Received? TX92585-4 Information not available 01/24/2023 Have There Been Any Changes To Your Family Or Social Situation? Yes Passed On 09/23/22 Information not available 01/24/2023 Do You Use Insect Repellent Routinely? Yes Information not available 01/24/2023 Where Do You Live? SingleLevelHouse Information not available 01/24/2023 Do You Have A Medical Power Of Cartridge Feeder? No Information not available 01/24/2023 How Many [...] anxious, or unable to sleep at night)? [id number] Information not available 01/24/2023 Family History Relationship [...] HAVE YOU BEEN HOSPITALIZED OR SEEN IN [facility] ER IN THE PAST YEAR ? Y Gynecological History Statement/Question Response Date of Last Pap Smear Current Control Method IUD Date of Last Colonoscopy Most Recent Mammogram Most Recent Bone Density Obstetrics History GPAL:G 0 P 0 0 0 0 Past Encounters Encounter ID Performer Location Encounter Start Date Encounter Closed Date Diagnosis/Indication Diagnosis SNOMED-CT Code Diagnosis ICD10 Code Diagnosis IMO Codes Diagnosis Note [id number] Anna Marie Ellis NP [address] [address] 09/14/2022 14:35:40 09/14/2022 15:38:36 Essential hypertension 34295982 I10 Losartan 50 mg po daily. HCTZ 12.5 mg po daily. Anemia screening 1659410 07 Z13.0 Diabetes m ellitus screening 774497467 Z13.1 Thyroid di sorder screening 048789525 Z13.29 Hyperlipid emia screening 622779267 Z13.220 Screening for disorder 281156106 Z13.9 Screening mammography of bilateral breasts 7662619579 23117 Z12.31 Mammogram ordered 09/14/22 History of bypass of stomach 113002037 Z98.84 2009. Has been on iron tablets. [id number] Anna Marie Ellis NP [facility] [address] [address] 10/17/2022 16:47:14 10/17/2022 18:05:51 Essential hypertension 60475921 I10 Losartan 50 mg po daily to 100 mg po daily on 10/17/22. HCTZ 12.5 mg po daily. Mixed anxi ety and depressive disorder 748289280 F41.8 lexapro 10 mg po daily. Hydroxyzin e 25 mg po tid prn. Gastroesop hageal reflux disease 497898489 K21.9 pantoprazo le 40 mg po daily. will be on for 2 mo.Pancrea titis. Acute pancreatitis 6007 K85.80 Amylase/li pase/cmp. If still raised, will refer back to Dr. Yu MATIAS at [facility]. Bereavement 24911381 Z63 .4 Mourning sudden of . Plans to call [employer] and if needed, I will give referral and FMLA. [id number] Anna Marie Ellis NP [address] [address] 11/29/2022 14:20:11 11/29/2022 15:05:09 Mixed anxiety and depressive disorder 190319754 F41.8 Lexapro 20 mg po daily (increased dose from 10 mg 11/29/22). Hydroxyzin e 25 mg po tid prn. Gastroesop hageal reflux disease 515353984 K21.9 no further issues. Not on meds as of 11/29/22Pan creatitis. Hyperlipidemia 95172534 E78.5 low fat diet advisedlab s 09/2022 Essential hypertension 20114897 I10 Losartan 100 mg po daily. HCTZ 12.5 mg po daily.Dolliver olol 50 mg po daily added on 11/29/22 Bereavement 34481070 Z63 .4 Mourning sudden of . Plans to call [employer] and if needed, I will give referral and FMLA. Spasm of back muscles 20 9608522 M62.830 methocarba mol 500 mg po bid prn. [id number] Anna Marie Ellis NP [address] [address] 01/24/2023 14:04:33 01/24/2023 14:45:33 Essential hypertension 79909359 I10 Losartan 100 mg po daily. HCTZ 12.5 mg po daily.Dolliver olol 50 mg po daily added on 11/29/22 Mixed anxi ety and depressive disorder 219769097 F41.8 Lexapro 20 mg po daily (increased dose from 10 mg 11/29/22). Hydroxyzin e 25 mg po tid prn. Gastroesop hageal reflux disease 375082137 K21.9 no further issues. Not on meds as of 11/29/22Pan creatitis. Hyperlipidemia 16918241 E78.5 low fat diet advised[facility] s 09/2022 Bereavement 99228737 Z63 .4 Mourning sudden of . Plans to call [employer] and if needed, I will give referral and FMLA. Spasm of back muscles 20 9297859 M62.830 methocarba mol 500 mg po bid prn. Bilateral tinnitus 20509 04391 102 H93.13 worked for the [employer] and likely having hearing loss. Health Concerns Section Related Observation LastModified by Organization Detai ls LastModified Time None Recorded Concern Status LastModified by Organization Details LastModified Time None Recorded Advance Directives Directive N: Payers Insurance Date Sequence Insurance Name Policy Number Policy Gambino Covered Member ID Gambino Member ID Guarantor Name 01/21/2023 1 [employer] (POS II) [id number] Leonard Hanson [id number] Rima Hanson Notes Date Note Type Note Provider Name and Address Organization Details Recorded Time 09/14/2022 text/html Here for new patient appt.BP has been high and needing checked out. HTN- has been up at urgent care. Was up at in May and Jul. Caffeine weaned off. Salt- moderate. 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 Hasn't been to [employer] since 2019. Mirena due to be out. No periods since having Mirena.[employer] vision, reading and distance glasses.[employer] dental. 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, [facility] [address], [place], [address], [place] [facility] 09/14/2022 15:31:37 10/17/2022 text/html Here with STEPHANIE. [...] Ellis NP [address], [place], [address], [facility] 10/17/2022 18:00:17 11/29/2022 text/html Here for 1 mo check up. Has been back to work on [employer]. Lexapro helps, hydroxyzine helps. At least when [...] Ellis NP [address], [place], [address], [facility] 11/29/2022 15:04:47 01/24/2023 text/html Here for 2 [...] pad helps. Anna Marie Ellis NP [address] [facility], [facility] [address], [place], [address], [facility] 01/24/2023 14:40:27 OBGyn Episode No OBEpisode recorded.
--- OUTSIDE RECORDS SUMMARY | 2025-02-28 11:50 | XMS_ITS | Clinical Summary ---
Author Organization [facility] Address [address] [place] [address] Care Team Providers Care Meringuer Name Role Phone Unavailable Primary Care Provider Unavailabl e Source Comments [facility],non-owned Affiliates and Associated Physician Practices is amultiple site organization consisting of ambulatory clinics and hospital sitesin [place], [place], [place] and [place]. This disclosure is being madepursuant to the Care Everywhere program and may not contain all information available regarding this patient. Last updated 18.[facility] Social History Tobacco Use Types Packs/Day Years Used Date Smoking Tobacco: Never Assessed Comments Unknown Sex and Gender Information Value Date Recorded Sex Assigned at Not on file Legal Sex Female 2:40 PM CDT Gender Identity Not on file Sexual Orientation Not on file Plan of Treatment Upcoming Encounters Date Type Department Care Team (Late st Contact Info) Description 04/22/2025 11:00 AM LICENSED MASSAGE THERAPIST Office Visit [facility] [address] [place] [address] Health Maintenance Due Date Last Done Comments COLOGUARD (AGES 45-75) - COL ON CA SCREENING 1971 COLON MONITORING 1971 COLONOSCOPY - COLON CA SCREENING 1971 CT COLONOGRAPHY - COLON CA SCREENING 1971 Colorectal Cancer Screening 1971 FIT - COLON CA SCREENING 1971 FLEX SIG - COLON CA SCREENING 1971 LIPID TESTING 1971 MAMMOGRAM 1971 HIV SCREENING 1986 HEPATITIS C SCREENING 02/09/1989 DTAP/TDAP/TD VACCINES (1 - Tdap) 1990 HEPATITIS B VACCINE (1 of 3 - 19+ 3-dose series) 1990 PAP SMEAR 02/15/1992 PNEUMOCOCCAL VACCINE 50+ (1 of 1 - PCV) 2021 ZOSTER VACCINE (1 of 2) 2021 DEPRESSION SCREENING 06/04/2024 COVID-19 VACCINE ( - 2023-2 5 season) 2025 INFLUENZA VACCINE (#1) 2025 HIB VACCINE Aged Out No longer eligi ble based on patient's age to complete this topic HPV VACCINE Aged Out No longer eligi ble based on patient's age to complete this topic MENINGOCOCCAL (Group B) VACC INE SHARED DECISION-MAKING Aged Out No longer eligibl e based on patient's age to complete this topic MENINGOCOCCAL GROUPS A/C/Y/W VACCINE Aged Out No longer eligible b ased on patient's age to complete [place] [address] [place] [place] [address] [employer] SELF PAY NO INSURANCE Member Subscriber Plan / Payer (Ef fective for All Dates) Name:Becky Hanson Member ID:Not on file Relation to Subscriber:Not on file Name:BECKY HANSON Subscriber ID:Not on file (Home) Address: [address] [place] [address] [place] [address] Payer ID:Not on file Group ID:Not on file Type:Self Pay Address: [place], [place]
[2025-02-28 13:03] LABS: Anion Gap 13 mmol/L (4-12); Blood Urea Nitrogen 14 mg/dL (7-17); Calcium 9.2 mg/dL (8.4-10.2); Carbon Dioxide 18 mmol/L (22-30); Chloride 103 mmol/L (98-107); Estimated Glomerular Filt Rate > 60; Glucose 126 mg/dL (65-110); Potassium 3.5 mmol/L (3.4-5.0); Sodium 134 mmol/L (137-145)
== END 2025-02-28 11:48 | disposition home or self-care (01) ==
LOC: ANHLAB 11:48
PROVIDERS: PCP Nurse Practitioner Family; Visit Provider Nurse Practitioner Family
DX: E87.6 Hypokalemia (principal)
CPT/HCPCS: 36415; 80048

== ENCOUNTER 2025-03-05 12:22 | Outpatient (CLI) | payer OTHER, SELFPAY ==
[2025-03-05 11:29] LABS: Hematocrit 34.2 % (37.0-47.0); Hemoglobin 10.6 g/dL (12.0-15.0); Immature Granulocyte Percent A 0.5 % (0-0.5); Lymphocytes Absolute Auto 1.05 K/mm3 (0.9-3.2); Mean Corpuscular HGB Conc 31.0 g/dl (32-36); Mean Corpuscular Hemoglobin 28.3 pg (26-34); Mean Corpuscular Volume 91.4 fl (80-100); Nucleated Red Blood Cells Absolute Auto 0.000 K/mm3 (0.0-0.012); Nucleated Red Blood Cells Perc 0.0 % (0.0-0.2); Platelet Count Result 144 k/mm3 (150-375); Red Blood Count 3.74 M/mm3 (4.2-5.4); White Blood Count 6.3 K/mm3 (4.5-10.0)
--- OUTSIDE RECORDS SUMMARY | 2025-03-05 11:35 | XMS_ITS | Clinical Summary ---
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
--- OUTSIDE RECORDS SUMMARY | 2025-03-05 11:35 | XMS_ITS | Clinical Summary ---
Author Organization [facility] Address [address] [place] [address] Care Team Providers Care Score Caller Name Role Phone Unavailable Primary Care Provider Unavailabl e Source Comments [facility],non-owned Affiliates and Associated Physician Practices is amultiple site organization consisting of ambulatory clinics and hospital sitesin [place], [place], [place] and [place]. This disclosure is being madepursuant to the Care Everywhere program and may not contain all information available regarding this patient. Last updated 18.[facility] Social History Tobacco Use Types Packs/Day Years Used Date Smoking Tobacco: Never Assessed Comments Unknown Sex and Gender Information Value Date Recorded Sex Assigned at Not on file Legal Sex Female 2:40 PM CDT Gender Identity Not on file Sexual Orientation Not on file Plan of Treatment Upcoming Encounters Date Type Department Care Team (Late st Contact Info) Description 04/22/2025 11:00 AM CASTING ASSISTANT Office Visit [facility] [address] [place] [address] Health Maintenance Due Date Last Done Comments [...] complete [place] [address] [address] [employer] SELF PAY NO INSURANCE Member Subscriber Plan / Payer (Ef fective for All Dates) Name:Becky Hanson Member ID:Not on file Relation to Subscriber:Not on file Name:BECKY HANSON Subscriber ID:Not on file (Home) Address: [address] [place] [address] [place] [address] Payer ID:Not on file Group ID:Not on file Type:Self Pay Address: [place], [place]
[2025-03-05 11:46] LABS: INR 1.2; Prothrombin Time 15.4 Seconds (11.1-14.7)
[2025-03-05 11:59] LABS: Alanine Aminotransferase 14 U/L (6-35); Albumin Level 4.1 g/dL (3.5-5.1); Alkaline Phosphatase 150 U/L (38-126); Anion Gap 10 mmol/L (4-12); Aspartate Amino Transferase 43 U/L (14-36); Bilirubin,Total 1.8 mg/dL (0.2-1.3); Blood Urea Nitrogen 13 mg/dL (7-17); Calcium 9.1 mg/dL (8.4-10.2); Carbon Dioxide 25 mmol/L (22-30); Chloride 102 mmol/L (98-107); Estimated Glomerular Filt Rate > 60; Glucose 126 mg/dL (65-110); Potassium 3.5 mmol/L (3.4-5.0); Sodium 137 mmol/L (137-145); Total Protein 8.6 g/dL (6.3-8.2)
--- OUTSIDE RECORDS SUMMARY | 2025-03-05 12:24 | XMS_ITS | Clinical Summary ---
Author Organization [facility] Address [address] [facility] [place] [address] Care Team Providers Care Ammunition Assembly Laborer Name Role Phone Unavailable Primary Care Provider Unavailabl e Source Comments [facility],non-owned Affiliates and Associated Physician Practices is amultiple site organization consisting of ambulatory clinics and hospital sitesin [place], [place], [place] and [place]. This disclosure is being madepursuant to the Care Everywhere program and may not contain all information available regarding this patient. Last updated 18.[facility] Social History Tobacco Use Types Packs/Day Years Used Date Smoking Tobacco: Never Assessed Comments Unknown Sex and Gender Information Value Date Recorded Sex Assigned at Not on file Legal Sex Female 2:40 PM CDT Gender Identity Not on file Sexual Orientation Not on file Plan of Treatment Upcoming Encounters Date Type Department Care Team (Late st Contact Info) Description 04/22/2025 11:00 AM CHLORINE CELL TENDER Office Visit [facility] [address] [place] [address] Health Maintenance Due Date Last Done Comments [...] 2) 2021 DEPRESSION SCREENING 06/04/2024 COVID-19 VACCINE (2023-2 5 season) 2025 INFLUENZA VACCINE (#1) 2025 [...] patient's age to complete this topic Insurance SELF PAY NO INSURANCE Member Subscriber Plan / Payer (Ef fective for All Dates) Name:Becky Hanson Member ID:Not on file Relation to Subscriber:Not on file Name:BECKY HANSON Subscriber ID:Not on file (Home) Address: [address] [place] [address] [place] [address] Payer ID:Not on file Group ID:Not on file Type:Self Pay Address: [place], [place] [employer]
--- OUTSIDE RECORDS SUMMARY | 2025-03-05 12:24 | XMS_ITS | Clinical Summary ---
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
[2025-03-05 14:04] LABS: Toxigenic C. Diff NEGATIVE (NEGATIVE)
[2025-03-09 14:08] LABS: Pancreatic Elastase, Fecal 159 (>200)
== END 2025-03-05 12:23 | disposition home or self-care (01) ==
PROVIDERS: PCP Nurse Practitioner Family; Visit Provider Nurse Practitioner
DX: K70.9 Alcoholic liver disease, unspecified (principal); R18.8 Other ascites; R79.89 Other specified abnormal findings of blood chemistry; R16.0 Hepatomegaly, not elsewhere classified; R19.7 Diarrhea, unspecified; R10.9 Unspecified abdominal pain; Z90.49 Acquired absence of other specified parts of digestive tract
CPT/HCPCS: 36415; 80053; 82105; 82248; 82653; 85025; 85610; 87045; 87046; 87427; 87493

== ENCOUNTER 2025-03-19 10:00 | Outpatient (CLI) | payer OTHER, SELFPAY ==
--- NOTE | ~2025-03-19 | US_ITS ---
ULTRASOUND ABDOMEN LIMITED (RIGHT UPPER QUADRANT) Clinical History: hcc screening Comparison: CT abdomen and pelvis 12/03/2024 Technique: Right upper quadrant sonography Findings: Liver: Enlarged, echogenic, nodular contour. No intrahepatic biliary ductal dilatation. Normal hepatopedal flow main portal veins. No discrete hepatic lesion identified. Common Duct: 9 mm. Gallbladder: Removed. Pancreas: Visualized portions unremarkable. Limited views right kidney unremarkable. IMPRESSION: 1. No acute findings. 2. Hepatomegaly, with steatosis and/or hepatocellular disease. Probable cirrhosis. 3. No discrete hepatic mass identified. Reviewed, dictated and finalized at location R. IMPRESSION: 1. No acute findings. 2. Hepatomegaly, with steatosis and/or hepatocellular disease. Probable cirrho sis. 3. No discrete hepatic mass identified.
--- OUTSIDE RECORDS SUMMARY | 2025-03-19 11:22 | XMS_ITS | Clinical Summary ---
Author Organization [facility] Address [address] [place] [address] Care Team Providers Care Orchard Worker Name Role Phone Unavailable Primary Care Provider Unavailabl e Source Comments [facility],non-owned Affiliates and Associated Physician Practices is amultiple site organization consisting of ambulatory clinics and hospital sitesin [place], [place], [place] and [place]. This disclosure is being madepursuant to the Care Everywhere program and may not contain all information available regarding this patient. Last updated 18.[facility] Social History Tobacco Use Types Packs/Day Years Used Date Smoking Tobacco: Never Assessed Comments Unknown Sex and Gender Information Value Date Recorded Sex Assigned at Not on file Legal Sex Female 2:40 PM CDT Gender Identity Not on file Sexual Orientation Not on file Plan of Treatment Upcoming Encounters Date Type Department Care Team (Late st Contact Info) Description 04/22/2025 11:00 AM BLISS PRESS OPERATOR Office Visit [facility] [address] [place] [id number] Health Maintenance Due Date Last Done Comments [...] HANSON Subscriber ID:Not on file (Home) Address: [address] [place] [address] [place] [address] Payer ID:Not on file Group ID:Not on file Type:Self Pay Address: [place], [place] [address]
--- OUTSIDE RECORDS SUMMARY | 2025-03-19 11:22 | XMS_ITS | Clinical Summary ---
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
== END 2025-03-19 10:01 | disposition home or self-care (01) ==
PROVIDERS: PCP Nurse Practitioner Family; Visit Provider Nurse Practitioner
DX: R16.0 Hepatomegaly, not elsewhere classified (principal); K70.9 Alcoholic liver disease, unspecified
CPT/HCPCS: 76705